=== PATIENT | male | born 1960 | race Caucasian/White ===

== ENCOUNTER 2025-01-21 10:19 | Inpatient (IN) ==
[2025-01-21] MEDS: SODIUM CHLORIDE 0.9% 1,000 ML IV SCH ×2 (10:49→18:25)
--- NOTE | 2025-01-21 10:53 | XRay Report ---
XR chest 1V portable CLINICAL HISTORY: syncope, sob COMPARISON STUDY: None FINDINGS: Heart size and pulmonary vasculature are normal. No effusion, consolidation, or pneumothora x. There are a few lateral nondisplaced left mid rib fractures which are likely chronic. IMPRESSION: Likely chronic left mid rib fractures. No acute findings seen. ACT 112: Negative or not required by law. Electronically signed by: Darryl Taylor M.D. 01/21/2025 10:52 AM
[2025-01-21 10:57] LABS: Basophils # (auto) 0.02 K/uL (0.00-0.20); Basophils % (auto) 0.2 %; Eosinophils # (auto) 0.01 K/uL (0.00-0.50); Eosinophils % (auto) 0.1 %; Hematocrit (blood only) 42.5 % (42.0-52.0); Hemoglobin 14.2 g/dl (14.0-18.0); Immature Granulocytes # (auto) 0.05 K/uL (0.01-0.20); Immature Granulocytes % (auto) 0.4 %; Lymphocytes # (auto) 1.86 K/uL (1.20-3.40); Lymphocytes % (auto) 15.4 %; Mean Corpuscular Hemoglobin 28.3 pg (25.0-34.0); Mean Corpuscular Hgb Conc 33.4 g/dL (32.0-36.0); Mean Corpuscular Volume 84.8 fL (80.0-100.0); Mean Platelet Volume 10.9 fL (9.4-12.4); Monocytes % (auto) 11.6 %; Neutrophils # (auto) 8.76 K/uL (1.40-6.50); Neutrophils % (auto) 72.3 %; Platelet Count 194 K/uL (130-400); RDW Coefficient of Variation 12.9 % (11.5-14.5); RDW Standard Deviation 39.3 fL (36.4-46.3); Red Blood Count 5.01 M/uL (4.70-6.10)
[2025-01-21 11:10] LABS: Albumin Globulin Ratio 1.5 (0.9-2); Albumin Level 4.2 gm/dl (3.4-5.0); BUN Creatinine Ratio 16.1 (10-20); Bilirubin,Total 0.8 mg/dl (0.2-1.0); Calcium 9.2 mg/dl (8.6-10.3); Globulin 2.8 gm/dl (2.5-4.0); Magnesium 1.8 mg/dl (1.7-2.4); Potassium 3.9 mmol/L (3.5-5.1)
[2025-01-21 11:14] LABS: Troponin I High Sensitivity 7.1 pg/ml (0-20)
[2025-01-21 11:24] LABS: Thyroid Stimulating Hormone 0.616 uIu/ml (0.300-4.500)
[2025-01-21 11:48] LABS: Adenovirus PCR Not Detected (NotDetected); Bordetella parapertussis PCR Not Detected (NotDetected); Bordetella pertussis PCR Not Detected (NotDetected); Chlamydia pneumoniae PCR Not Detected (NotDetected); Coronavirus 229E PCR Not Detected (NotDetected); Coronavirus CoV-2 (COVID19)PCR Not Detected (NotDetected); Coronavirus HKU1 PCR Not Detected (NotDetected); Coronavirus NL63 PCR Not Detected (NotDetected); Coronavirus OC43PCR Not Detected (NotDetected); Human Metapneumovirus PCR Not Detected (NotDetected); Influenza A (H1 2009) PCR DETECTED (NotDetected); Influenza B PCR Not Detected (NotDetected); Mycoplasma pneumoniae PCR Not Detected (NotDetected); Parainfluenza Virus 1 PCR Not Detected (NotDetected); Parainfluenza Virus 2 PCR Not Detected (NotDetected); Parainfluenza Virus 3 PCR Not Detected (NotDetected); Parainfluenza Virus 4 PCR Not Detected (NotDetected); Respiratory Syncytial VirusPCR Not Detected (NotDetected); Rhinovirus/Enterovirus PCR Not Detected (NotDetected)
[2025-01-21] MEDS: ACETAMINOPHEN 1,000 MG/100 ML VIAL IV STA (13:31)
--- NOTE | 2025-01-21 14:24 | Emergency Department Note ---
Impression & Plan Syncope, Influenza, Hypoxia ED Provider Note ED Provider Note NAME: MOIZ BOO AGE:64 SEX: Male : 1960 ARRIVES VIA: Private vehicle INFORMANT: Patient ED PROVIDER(s): Salma Winslow DO CHIEF COMPLAINT: Syncope HPI: This is a 64-year-old male who is present in the emergency department with his who was a patient when he experienced a syncopal event at bedside. Patient was unconscious for approximately 30 seconds after a fit of coughing and was taken into an adjacent room for further evaluation. Upon my evaluation patient was awake and talking, stated he had had a "bad cold" recently as did his . He states he has been coughing, had decreased appetite, and subjective fevers and chills. He denies any history of asthma or COPD, no prior tobacco abuse. He states he does have diabetes, denies any history of heart or kidney problems. Denies any other change in medications or diet. PAST MEDICAL HISTORY:See Below PAST SURGICAL HISTORY:See Below FAMILY HISTORY:See Below SOCIAL HISTORY:See Below HOME MEDICATIONS:See Below ALLERGIES:See Below VITALS:See Below PHYSICAL EXAMINATION: GENERAL: alert, unwell appearing, well nourished, no distress, non-toxic EYE EXAM: normal conjunctiva, PERRL and EOM's grossly intact OROPHARYNX: no exudate, no erythema, lips, buccal mucosa, and tongue normal and mucous membranes are moist NECK: supple, no nuchal rigidity, no adenopathy, non-tender LUNGS: Coarse bilaterally to auscultation. Normal chest wall mechanics, no w/r/r HEART: no murmurs, S1 normal and S2 normal ABDOMEN: abdomen soft, non-tender, normo-active bowel sounds, no masses, no rebound or guarding. BACK: Back is symmetrical on inspection and there is no deformity, no midline tenderness, no CVA tenderness. SKIN: no rashes, petechiae, orbruising UPPER EXTREMITIES: upper extremities are grossly normal. FROM, nml pulses b/l. LOWER EXTREMITIES: No pitting edema. FROM, nml pulses b/l. NEURO EXAM: Normal sensorium, cranial nerves II-XII grossly intact, normal speech, no facial droop,nogross weakness of arms, no gross weakness of legs. Gross sensation intact. No ataxia. Vital Signs: reviewed and remarkable Differential Diagnosis: vasovagal event, infection, hypoglycemia, electrolyte abnormalities, toxidrome, substance abuse, dysrhythmia, ACS, CVA, ICH, as well as others were entertained. MEDICAL DECISION MAKING: This is a 64 yo male who presents to the ER following a syncopal event while here as a visitor with his . He was unresponsive for 30 seconds and placed in a bed urgently. He was afebrile and VS stable. Once he regained consciousness he had a normal and nonfocal neuro exam and reported having flu like symptoms for a few days as did his . Labs drawn and sent, IV established, EKG and CXR performed and interpreted at bedside, and patient placed on telemetry. He was sent for CT head additionally. He was started on gentle IVF hydration. He was maintained on oxygen via nasal canula as he was noted to be hypoxic following the syncopal event. After several hours of hydration and monitoring, as well as a repeat troponin that was still negative, patient could still not be weaned off of oxygen and with any exertion, his oxygen dropped further. Case discussed with the hospitalist team for additional evaluation and mgmt. Consultation(s): 1654: Discussed with Dr. Avina, [facility] hospitalist team, for additional evaluation and management. ER Treatment Provided: See below Diagnostics Interpreted By Me: -ECG: Normal sinus at 81, normal axis, normal intervals, no acute ST/T wave changes -Cardiac Monitoring: An order was placed for continuous cardiac monitoring. The monitor shows a rate of 80 with normal sinus rhythm. -Laboratory studies: As stated above and show below. -Imaging studies: X-ray Chest: A single view study of the chest was reviewed and was negative for cardiomegaly, focal infiltrate, effusion, pulmonary edema, or wide mediastinum. Triage Nursing Note Reviewed Prior/Outside Records Reviewed Past Med/Surg History Problem List (Updated 01/21/25 @ 17:50 by Background Daemon) Diabetes mellitus type 2, insulin dependent Post-tussive syncope Acute hypoxic respiratory failure Sepsis Influenza A Hypoxia (Acute) Influenza (Acute) Syncope (Acute) Social History Smoking Status: Never smoker Hx Alcohol Use: Yes Hx Substance Use: No Preferred Language: Chinese Communication Ability: Effective Reconciliation Accountant Required: No Beliefs That Will Affect Care: None Current Living Situation: Spouse Other Information That Helps Us Care for You: No Feels Safe at Home: Yes Safety Concerns: Feels Safe At This Time Assistive Devices: None Home Meds Home Medications Medication Instructions Recorded Confirmed dulaglutide 1.5 mg/0.5 mL 1.5 mg subcut WK 01/21/25 01/21/25 subcutaneous pen injector (Trulicity) insulin glargine 100 unit/mL (3 50 unit subcut DAILY 01/21/25 01/21/25 mL) subcutaneous pen (Lantus Solostar U-100 Insulin) insulin lispro 100 unit/mL 1 sliding scale dose subcut UD 01/21/25 01/21/25 subcutaneous pen (Admelog SoloStar U-) Results & Data (ED) Vital Signs Vital Signs - 24 hr 01/21/25 10:28 01/21/25 10:30 01/21/25 10:35 Temperature 36.3 C L Temperature Source Axillary Pulse Rate 90 89 81 Pulse Rate [Apical] Pulse Rate from SpO2 Sensor 88 Pulse Rhythm [Apical] Pulse Strength [Apical] Respiratory Rate 16 28 H Respiratory Effort / Characteristics Non-Labored Spontaneous Respiratory Depth Normal Respiratory Pattern Blood Pressure 208/98 H 153/80 H Blood Pressure [Right Arm] Blood Pressure Mean 134 104 Blood Pressure Mean [Right Arm] Blood Pressure Position [Right Arm] Pulse Oximetry 89 L 89 L Oxygen Delivery Method Room Air Room Air Oxygen Flow Rate Sepsis Recent Fever Within 48 Hours No Sepsis New/Unexplained Change in Mental Status N/A Sepsis Action Taken by Nursing No Action Required 01/21/25 10:57 01/21/25 11:00 01/21/25 11:00 Temperature Temperature Source Pulse Rate 91 H 91 H Pulse Rate [Apical] Pulse Rate from SpO2 Sensor 91 H 90 Pulse Rhythm [Apical] Pulse Strength [Apical] Respiratory Rate 26 H 25 H Respiratory Effort / Characteristics Respiratory Depth Respiratory Pattern Blood Pressure 137/74 131/67 Blood Pressure [Right Arm] Blood Pressure Mean 95 88 Blood Pressure Mean [Right Arm] Blood Pressure Position [Right Arm] Pulse Oximetry 95 95 93 Oxygen Delivery Method Nasal Cannula Nasal Cannula Nasal Cannula Oxygen Flow Rate 2 2 2 Sepsis Recent Fever Within 48 Hours Sepsis New/Unexplained Change in Mental Status Sepsis Action Taken by Nursing 01/21/25 11:15 01/21/25 11:30 01/21/25 11:45 Temperature Temperature Source Pulse Rate 91 H 76 79 Pulse Rate [Apical] Pulse Rate from SpO2 Sensor 79 78 Pulse Rhythm [Apical] Pulse Strength [Apical] Respiratory Rate 21 22 25 H Respiratory Effort / Characteristics Respiratory Depth Respiratory Pattern Blood Pressure 144/71 H 132/68 131/61 Blood Pressure [Right Arm] Blood Pressure Mean 95 89 84 Blood Pressure Mean [Right Arm] Blood Pressure Position [Right Arm] Pulse Oximetry 95 95 97 Oxygen Delivery Method Nasal Cannula Nasal Cannula Nasal Cannula Oxygen Flow Rate 2 2 2 Sepsis Recent Fever Within 48 Hours Sepsis New/Unexplained Change in Mental Status Sepsis Action Taken by Nursing 01/21/25 12:03 01/21/25 12:37 01/21/25 12:37 Temperature 37.7 C H Temperature Source Oral Pulse Rate 89 Pulse Rate [Apical] Pulse Rate from SpO2 Sensor 85 Pulse Rhythm [Apical] Pulse Strength [Apical] Respiratory Rate 24 Respiratory Effort / Characteristics Respiratory Depth Respiratory Pattern Blood Pressure 144/69 H 122/68 Blood Pressure [Right Arm] Blood Pressure Mean 94 97 Blood Pressure Mean [Right Arm] Blood Pressure Position [Right Arm] Pulse Oximetry 96 Oxygen Delivery Method Nasal Cannula Oxygen Flow Rate 2 Sepsis Recent Fever Within 48 Hours Sepsis New/Unexplained Change in Mental Status Sepsis Action Taken by Nursing 01/21/25 12:48 01/21/25 13:30 01/21/25 13:57 Temperature Temperature Source Pulse Rate 93 H 117 H 105 H Pulse Rate [Apical] Pulse Rate from SpO2 Sensor 94 H 118 H 106 H Pulse Rhythm [Apical] Pulse Strength [Apical] Respiratory Rate 24 30 H 27 H Respiratory Effort / Characteristics Respiratory Depth Respiratory Pattern Blood Pressure 177/108 H 152/78 H Blood Pressure [Right Arm] Blood Pressure Mean 131 102 Blood Pressure Mean [Right Arm] Blood Pressure Position [Right Arm] Pulse Oximetry 96 95 92 Oxygen Delivery Method Nasal Cannula Nasal Cannula Oxygen Flow Rate 2 2 Sepsis Recent Fever Within 48 Hours Sepsis New/Unexplained Change in Mental Status Sepsis Action Taken by Nursing 01/21/25 14:06 01/21/25 15:03 01/21/25 15:31 Temperature Temperature Source Pulse Rate 110 H 108 H Pulse Rate [Apical] 105 H Pulse Rate from SpO2 Sensor 111 H 108 H Pulse Rhythm [Apical] Regular Pulse Strength [Apical] Normal Respiratory Rate 27 H 20 Respiratory Effort / Characteristics Non-Labored Spontaneous Respiratory Depth Normal Respiratory Pattern Regular Blood Pressure 152/78 H 113/68 Blood Pressure [Right Arm] 127/60 Blood Pressure Mean 102 83 Blood Pressure Mean [Right Arm] 82 Blood Pressure Position [Right Arm] Lying Pulse Oximetry 93 96 93 Oxygen Delivery Method Room Air Room Air Oxygen Flow Rate Sepsis Recent Fever Within 48 Hours Sepsis New/Unexplained Change in Mental Status Sepsis Action Taken by Nursing 01/21/25 16:00 01/21/25 16:41 Temperature Temperature Source Pulse Rate 95 H Pulse Rate [Apical] Pulse Rate from SpO2 Sensor Pulse Rhythm [Apical] Pulse Strength [Apical] Respiratory Rate 23 Respiratory Effort / Characteristics Respiratory Depth Respiratory Pattern Blood Pressure 105/51 L Blood Pressure [Right Arm] Blood Pressure Mean 64 Blood Pressure Mean [Right Arm] Blood Pressure Position [Right Arm] Pulse Oximetry 90 89 L Oxygen Delivery Method Room Air Oxygen Flow Rate Sepsis Recent Fever Within 48 Hours Sepsis New/Unexplained Change in Mental Status Sepsis Action Taken by Nursing Laboratory Data 01/21/25 10:23 01/22/25 06:52 Lab Results 01/21/25 01/21/25 Range/Units 10:23 15:32 WBC 12.10 H (4.8-10.8) K/ul RBC 5.01 (4.70-6.10) M/uL Hgb 14.2 (14.0-18.0) g/dl Hct 42.5 (42.0-52.0) % MCV 84.8 (80.0-100.0) fL MCH 28.3 (25.0-34.0) pg MCHC 33.4 (32.0-36.0) g/dL RDW Std Deviation 39.3 (36.4-46.3) fL RDW Coeff of Mary 12.9 (11.5-14.5) % Plt Count 194 (130-400) K/uL MPV 10.9 (9.4-12.4) fL Immature Gran % (Auto) 0.4 % Neut % (Auto) 72.3 % Lymph % (Auto) 15.4 % [place] % (Auto) 11.6 % Eos % (Auto) 0.1 % Baso % (Auto) 0.2 % Neut # (Auto) 8.76 H (1.40-6.50) K/uL Lymph # (Auto) 1.86 (1.20-3.40) K/uL [place] # (Auto) 1.40 H (0.11-0.59) K/uL Eos # (Auto) 0.01 (0.00-0.50) K/uL Baso # (Auto) 0.02 (0.00-0.20) K/uL Immature Gran # (Auto) 0.05 (0.01-0.20) K/uL PT 11.0 (9.0-12.0) Seconds INR 1.0 (0.9-1.1) Sodium 134 L (136-145) mmol/L Potassium 3.9 (3.5-5.1) mmol/L Chloride 100 (98-107) mmol/L Carbon Dioxide 25 (21-32) mmol/L Anion Gap 9 (3-11) BUN 15 (6-23) mg/dl Creatinine 0.93 (0.6-1.4) mg/dl Est Cr Clr Drug Dosing 94.0 ml/min eGFR 91.12 BUN/Creatinine Ratio 16.1 (10-20) Glucose 125 H (70-99(Fasting)) mg/dl Calcium 9.2 (8.6-10.3) mg/dl Magnesium 1.8 (1.7-2.4) mg/dl Total Bilirubin 0.8 (0.2-1.0) mg/dl AST 17 (13-39) U/L ALT 14 (7-52) U/L Alkaline Phosphatase 109 H (34-104) U/L Troponin I High Sens 7.1 5.8 (0-20) pg/ml B-Natriuretic Peptide 57 (0-100) pg/ml Total Protein 7.0 (6.0-8.3) gm/dl Albumin 4.2 (3.4-5.0) gm/dl Globulin 2.8 (2.5-4.0) gm/dl Albumin/Globulin Ratio 1.5 (0.9-2) Lipase 8 L (11-82) U/L TSH 0.616 (0.300-4.500) uIu/ml Nasal Influ A H1 2009 PCR DETECTED A (NotDetected) Adenovirus (PCR) Not Detected (NotDetected) B. pertussis DNA (PCR) Not Detected (NotDetected) B.parapertussis DNA PCR Not Detected (NotDetected) C. pneumoniae DNA (PCR) Not Detected (NotDetected) Coronavirus OC43 (PCR) Not Detected (NotDetected) Coronavirus HKU1 (PCR) Not Detected (NotDetected) Coronavirus 229E (PCR) Not Detected (NotDetected) SARS-CoV-2 (PCR) Not Detected (NotDetected) Coronavirus NL63 (PCR) Not Detected (NotDetected) Human Metapneumovir PCR Not Detected (NotDetected) Influenza Type B (PCR) Not Detected (NotDetected) M. pneumoniae (PCR) Not Detected (NotDetected) Parainfluenza 1 (PCR) Not Detected (NotDetected) Parainfluenza 2 (PCR) Not Detected (NotDetected) Parainfluenza 3 (PCR) Not Detected (NotDetected) Parainfluenza 4 (PCR) Not Detected (NotDetected) RSV (PCR) Not Detected (NotDetected) Entero/Rhino (PCR) Not Detected (NotDetected) Administered Medications Acetaminophen (Acetaminophen 325 Mg Tab) 650 mg PO Q4H PRN PRN Reason: Pain or Fever Stop: 02/20/25 18:04 Last Admin: 01/22/25 21:54 Dose: 650 mg Documented By: Admin: 01/22/25 15:32 Dose: 650 mg Documented By: Admin: 01/21/25 21:39 Dose: 650 mg Documented By: ARISTEO Benzonatate (Benzonatate 100 Mg Capsule) 200 mg PO TID PRN PRN Reason: Cough Stop: 02/20/25 18:04 Last Admin: 01/22/25 21:53 Dose: 200 mg Documented By: GARRISON Enoxaparin Sodium (Enoxaparin Inj 40 Mg/0.4 Ml Syr) 40 mg SQ QAM [facility] Stop: 02/21/25 08:59 Last Admin: 01/22/25 08:07 Dose: 40 mg Documented By: CECILIA Guaifenesin (Guaifenesin 600 Mg Tabcr) 600 mg PO Q12 [facility] Stop: 02/20/25 20:59 Last Admin: 01/22/25 21:53 Dose: 600 mg Documented By: Admin: 01/22/25 08:07 Dose: 600 mg Documented By: Admin: 01/21/25 21:12 Dose: 600 mg Documented By: ARISTEO Hydrocodone Bit/Homatropine Methylb (Hydrocodone/Homatropine Syrup 5mg/1.5mg 5ml Udp) 5 ml PO Q6H PRN PRN Reason: Cough Stop: 02/04/25 18:04 Last Admin: 01/22/25 21:54 Dose: 5 ml Documented By: GARRISON Insulin Aspart (Insulin Aspart Per Unit Charge) 0 units SC ACHS NASH Stop: 02/20/25 20:59 Last Admin: 01/22/25 21:55 Dose: 1 units Documented By: GARRISON Co-signed By: associate loan officer: 01/22/25 18:07 Dose: 9 units Documented By: CECILIA Co-signed By: JAMAAL Admin: 01/22/25 12:46 Dose: 8 units Documented By: CECILIA Co-signed By: THIAGO Admin: 01/22/25 08:59 Dose: 13 units Documented By: CECILIA Co-signed By: THIAGO Admin: 01/21/25 21:39 Dose: 4 units Documented By: ARISTEO Co-signed By: WARD Insulin Glargine (Lantus Per Unit Charge) 50 units SC DAILY NASH Stop: 02/21/25 08:59 Last Admin: 01/22/25 08:59 Dose: 50 units Documented By: CECILIA Co-signed By: THIAGO Ondansetron HCl (Ondansetron Inj 2 Mg/Ml 2 Ml Vial) 4 mg IV Q6H PRN PRN Reason: Nausea Stop: 02/20/25 18:04 Last Admin: 01/23/25 02:58 Dose: 4 mg Documented By: GARRISON Oseltamivir Phosphate (Oseltamivir Phosphate 75 Mg Cap) 75 mg PO BID NASH Stop: 01/26/25 20:59 Last Admin: 01/22/25 21:53 Dose: 75 mg Documented By: Admin: 01/22/25 08:07 Dose: 75 mg Documented By: Admin: 01/21/25 21:13 Dose: 75 mg Documented By: ARISTEO Discontinued Medications Sodium Chloride (Nss) 1,000 mls @ 125 mls/hr IV .Q8H NASH Stop: 01/22/25 10:44 Last Infusion: 01/21/25 19:30 Dose: Infused Documented By: Admin: 01/21/25 10:49 Dose: 125 mls/hr Documented By: JOHNNIE Acetaminophen (Ofirmev) 1,000 mg in 100 mls @ 400 mls/hr IV NOW STA Stop: 01/21/25 13:40 Last Infusion: 01/21/25 13:55 Dose: Infused Documented By: Admin: 01/21/25 13:31 Dose: 400 mls/hr Documented By: Sodium Chloride (Nss) 1,000 mls @ 80 mls/hr IV .[id number] NASH Stop: 01/22/25 18:04 Last Infusion: 01/22/25 23:49 Dose: Infused Documented By: Admin: 01/22/25 08:06 Dose: 80 mls/hr Documented By: Infusion: 01/22/25 06:55 Dose: Infused Documented By: Admin: 01/21/25 18:25 Dose: 80 mls/hr Documented By: KWESI Ketorolac Tromethamine (Ketorolac Tromethamine 15 Mg/Ml Vial) 10 mg IV NOW ONE Stop: 01/21/25 14:47 Last Admin: 01/21/25 15:05 Dose: 10 mg Documented By: Oseltamivir Phosphate (Oseltamivir Phosphate 75 Mg Cap) 75 mg PO NOW STA Stop: 01/21/25 18:06 Last Admin: 01/21/25 18:22 Dose: 75 mg Documented By: KWESI Imaging Data Radiologist's Impression: Chest X-Ray 01/21/25 10:35 XR chest 1V portable CLINICAL HISTORY: syncope, sob COMPARISON STUDY: None FINDINGS: Heart size and pulmonary vasculature are normal. No effusion, consolidation, or pneumothorax. There are a few lateral nondisplaced left mid rib fractures which are likely chronic. IMPRESSION: Likely chronic left mid rib fractures. No acute findings seen. ACT 112: Negative or not required by law. Electronically signed by: Darryl Taylor M.D. 01/21/2025 10:[address] 01/21/25 13:54 CT head/brain wo con CLINICAL HISTORY: 64 years-old Male with syncope. Acute syncope TECHNIQUE: Multiple axial CT images of the head were obtained without contrast. A dose lowering technique was utilized adhering to the principles of ALARA. CT DOSE: 625.8 mGy.cm COMPARISON: None. FINDINGS: No acute intracranial hemorrhage, midline shift, intracranial mass, hydrocephalus, territorial ischemia or abnormal extra-axial collection. Mildly motion degraded exam. Mild white matter hypodensities may represent chronic microvascular ischemic disease. The calvarium is intact. The paranasal sinuses, mastoid air cells, and middle ear cavities are clear. IMPRESSION: No acute intracranial abnormality. ACT 112: Negative or not required by law. The above report was generated using voice recognition software. It may contain grammatical, syntax or spelling errors. Electronically signed by: Landon Maeyrs M.D. 01/21/2025 2:40 PM Discharge Plan Visit Data Chief Complaint: Syncope Stated Complaint: SYNCOPE ED Provider: Salma Winslow Discharge Problem: Syncope, Influenza, Hypoxia Patient Disposition: Admitted As Inpatient Discharge Instructions Interventions: ED Discharge Assessment Last Done: 01/21/25 18:05
--- NOTE | 2025-01-21 14:42 | CT Scan Report ---
CT head/brain wo con CLINICAL HISTORY: 64 years-old Male with syncope. Acute syncope TECHNIQUE: Multiple axial CT images of the head were obtained without contrast. A dose lowering tech nique was utilized adhering to the principles of ALARA. CT DOSE: 625.8 mGy.cm COMPARISON: None. FINDINGS: No acute intracranial hemorrhage, midline shift, intracranial mass, hydrocephalus, territorial ischem ia or abnormal extra-axial collection. Mildly motion degraded exam. Mild white matter hypodensities m ay represent chronic microvascular ischemic disease. The calvarium is intact. The paranasal sinuses, mastoid air cells, and middle ear cavities are clear . IMPRESSION: No acute intracranial abnormality. ACT 112: Negative or not required by law. The above report was generated using voice recognition software. It may contain grammatical, syntax o r spelling errors. Electronically signed by: Landon Mayers M.D. 01/21/2025 2:40 PM
[2025-01-21] MEDS: KETOROLAC TROMETHAMINE 15 MG/ML VIAL IV ONE (15:05)
--- NOTE | 2025-01-21 17:39 | History & Physical Report ---
Date of Service January 21, 2025 Assessment & Plan (1) Acute hypoxic respiratory failure: (2) Sepsis: (3) Influenza A: (4) Post-tussive syncope: (5) Diabetes mellitus type 2, insulin dependent: Admission and Anticipated Discharge Date Admission Date: Patient 64-year-old gentleman who was in the emergency department tending to his when he had acute syncopal episode. Syncope most likely due to posttussive event. Subsequent patient diagnosed with H. influenzae and noted be hypoxic and febrile. Meeting criteria for sepsis. Patient high risk for further deterioration and requires hospital level care. Admit to the hospital and monitored unit with a episode of syncope Continue to monitor for arrhythmia Treat influenza with Tamiflu Other symptomatic care with antipyretics, antitussives and mucolytics Continue home basal insulin, monitor glucose with short acting insulin sliding scale Oxygen support, titrate as able History of Present Illness Chief Complaint: Passed out in ED Primary Care Provider: Carmen Ponce PA-C Patient is 64-year-old gentleman who was in the emergency department with his who is critically ill. Reports are that he had a significant coughing spell and then passed out for almost 30 seconds. Evaluation in the emergency room was remarkable for testing positive for influenza A. All other testing really was unrevealing. He has been having fever here in the emergency department and was noted to be somewhat hypoxic. He was referred to our service for ongoing care. Time my evaluation patient feeling a little bit better. Does admit to having some flulike symptoms for the last 24 hours. He is also started with some loose stools here in the emergency department which has been a consistent symptoms with influenza this year. He does not really admit to being short of breath despite his mild hypoxia. Does not really recall anything palacio rrounding the events of him passing out. He was extremely concerned about his as well. Has been eating and drinking okay up until today. No swelling in hands arms legs or feet. No issues with urination. No chest pain or palpitations. Home Medications Medication Instructions Recorded Confirmed Type dulaglutide 1.5 mg/0.5 mL 1.5 mg subcut WK 01/21/25 01/21/25 History subcutaneous pen injector (Trulicity) insulin glargine 100 unit/mL (3 50 unit subcut DAILY 01/21/25 01/21/25 History mL) subcutaneous pen (Lantus Solostar U-100 Insulin) insulin lispro 100 unit/mL 1 sliding scale dose subcut UD 01/21/25 01/21/25 History subcutaneous pen (Admelog SoloStar U-) Past Med/Surg History Problem List (Updated 01/21/25 @ 17:37 by John Stuart, DO) Diabetes mellitus type 2, insulin dependent Post-tussive syncope Acute hypoxic respiratory failure Sepsis Influenza A Hypoxia (Acute) Influenza (Acute) Syncope (Acute) Social History Smoking Status: Unknown if ever smoked Beliefs That Will Affect Care: Yazidi Feels Safe at Home: Yes Review of Systems Review of Systems: Pertinent positive and negative review of systems as mentioned in the HPI Physical Exam Physical Exam: Constitutional: Alert, moderately ill in appearance, HEENT: Mucous membranes moist. Sclera clear Neck: Soft, no adenopathy Lungs: Clear to auscultation, decreased, no wheezes rales or rhonchi CV: S1-S2, regular Abdomen: Soft, nontender, nondistended Extremities: No significant edema Musculoskeletal: No significant joint tenderness Neuro: No focal deficits Psych: Cooperative, normal mood Results & Data Results & Data Vital Signs (Past 12 Hours) Vital Signs Temp Pulse Pulse Resp BP BP Pulse Ox 01/21/25 16:41 89 L 01/21/25 15:31 105 H 20 127/60 93 01/21/25 15:03 108 H 113/68 96 01/21/25 14:06 110 H 27 H 152/78 H 93 01/21/25 13:57 105 H 27 H 152/78 H 92 01/21/25 13:30 117 H 30 H 177/108 H 95 01/21/25 12:48 93 H 24 96 01/21/25 12:37 122/68 01/21/25 12:37 37.7 C H 01/21/25 12:03 89 24 144/69 H 96 01/21/25 11:45 79 25 H 131/61 97 01/21/25 11:30 76 22 132/68 95 01/21/25 11:15 91 H 21 144/71 H 95 01/21/25 11:00 91 H 25 H 131/67 93 01/21/25 11:00 95 01/21/25 10:57 91 H 26 H 137/74 95 01/21/25 10:35 81 01/21/25 10:30 89 28 H 153/80 H 89 L 01/21/25 10:28 36.3 C L 90 16 208/98 H 89 L O2 Del Method O2 Flow Rate 01/21/25 16:41 Room Air 01/21/25 15:31 Room Air 01/21/25 15:03 Room Air 01/21/25 14:06 01/21/25 13:57 01/21/25 13:30 Nasal Cannula 2 01/21/25 12:48 Nasal Cannula 2 01/21/25 12:37 01/21/25 12:37 01/21/25 12:03 Nasal Cannula 2 01/21/25 11:45 Nasal Cannula 2 01/21/25 11:30 Nasal Cannula 2 01/21/25 11:15 Nasal Cannula 2 01/21/25 11:00 Nasal Cannula 2 01/21/25 11:00 Nasal Cannula 2 01/21/25 10:57 Nasal Cannula 2 01/21/25 10:35 01/21/25 10:30 Room Air 01/21/25 10:28 Room Air Diagnostic Findings Reviewed imaging, laboratory and diagnostic studies. Pertinent findings as below. WBCs 12.1 Hemoglobin 14.2 Sodium 134 Creatinine 0.93 Glucose 125 BNP 57 Troponin 5.8 TSH 0.61 Respiratory viral panel positive for influenza A Personally reviewed chest x-ray, no consolidative infiltrate Personally reviewed EKG, sinus rhythm no acute ST-T wave changes Head CT unremarkable
[2025-01-21] MEDS ORDERED: CARBOHYDRATES FOR HYPOGLYCEMIA PO PRN (18:05)
[2025-01-21] MEDS ORDERED: GLUCAGON FOR INJ 1 MG VIAL SQ PRN (18:05)
[2025-01-21] MEDS ORDERED: GLUCOSE 40% GEL 15 GM TUBE PO PRN (18:05)
[2025-01-21] MEDS ORDERED: GLUCOSE 10 TAB/TUBE PO PRN (18:05)
[2025-01-21] MEDS ORDERED: POLYETHYLENE (MIRALAX) 17 GM PACK PO PRN (18:05)
[2025-01-21] MEDS ORDERED: IBUPROFEN 200 MG TAB PO PRN (18:05)
[2025-01-21] MEDS ORDERED: ALUMINUM/MAGNESIUM SUSP 30 ML UDC PO PRN (18:05)
[2025-01-21] MEDS ORDERED: DEXTROSE 50% 50 ML SYRINGE IV PRN (18:05)
[2025-01-21] MEDS: OSELTAMIVIR PHOSPHATE 75 MG CAP PO STA (18:22)
[2025-01-21] MEDS: guaiFENesin 600 MG TABCR PO SCH (21:12)
[2025-01-21] MEDS: OSELTAMIVIR PHOSPHATE 75 MG CAP PO SCH (21:13)
[2025-01-21] MEDS: INSULIN ASPART PER UNIT CHARGE SC SCH (21:39)
[2025-01-21] MEDS: ACETAMINOPHEN 325 MG TAB PO PRN (21:39)
--- OUTSIDE RECORDS SUMMARY | 2025-01-22 05:51 | External Medical Summary | Summary of Care ---
Author Name Unknown Organization [facility] Address [address] [place] [address] Phone [phone] Care Team Providers Care Central Office Supervisor Name Role Phone Carmen Ponce PA-C Primary Care Provider + Reason for Visit * Reason Onset Date Comments Medical Equipment 12/27/2024 Encounter Details Date Type Department Care Team ([facility] st Contact Info) Description 12/27/2024 Telephone Pharmacy [address] [phone] Pharmacist2, [facility] [address] [address] Medical Equipment Allergies Active Allergy Reactions Criticality Noted Date Comments Penicillins Edema face/lips/tongue,Hives High 2000 documented as of this encounter (statuses as of 12/27/2024) Medications Vitamin B-12 1000 MCG Oral Tablet Take by mouth 1 Tablet in the morning. 100 Tablet 3 2 Active Rosuvastatin Calcium 10 MG Oral Tablet (Crestor)Indicati ons:Hyperlipidemi a with target LDL less than 100 Take 1 Tablet by mouth every evening. 90 Tablet 3 3 Active Dexcom G7 Farm Equipment Mechanic Apprentice DeviceIndications :Type 2 diabetes mellitus with hemoglobin A1c goal of less than 7.0% ([facility]) Use to test blood sugars daily DXE 11.9 1 Each 3 Active Furosemide 20 MG Oral Tablet (Lasix)Indication s:Bilateral leg edema Take 1 Tablet by mouth in the morning. 30 Tablet 5 3 Active Potassium Chloride ER 10 MEQ Oral Capsule Extended ReleaseIndication s:Bilateral leg edema,Encounter for long-term (current) use of medications TAKE 1 CAPSULE BY MOUTH EVERY MORNING 90 Capsule 1 4 Active Lantus SoloStar 100 UNIT/ML Subcutaneous Solution Pen-injectorIndic ations:Type 2 diabetes mellitus with hemoglobin A1c goal of less than 7.0% (HCC) INJECT 50 units once daily DX E11.9 - titrating until BG is <150 (MDD 60units/day) 45 mL 3 4 Active Insulin Lispro (1 Unit Dial) 100 UNIT/ML Subcutaneous Solution Pen-injector (Admelog SoloStar)Indicati ons:Type 2 diabetes mellitus with hemoglobin A1c goal of less than 7.0% (HCC) Inject 15 units with breakfast and lunch and 16 units with dinner plus CF 1:30 >150 up to maximum of 75 units per day 45 mL 3 5 Active metFORMIN HCl 1000 MG Oral Tablet (Glucophage)Indic ations:Type 2 diabetes mellitus with hemoglobin A1c goal of less than 7.0% (HCC) Take 1 Tablet by mouth 2 times a day with morning and evening meals. 180 Tablet 1 5 Active Trulicity 1.5 MG/0.5ML Subcutaneous Solution Auto-injector (Dulaglutide)Marlene cations:Type 2 diabetes mellitus with hemoglobin A1c goal of less than 7.0% (HCC) Inject 1.5 mg under the skin once a week for 4 doses. 2 mL 5 12/27/19 25 Active Trulicity 3 MG/0.5ML Subcutaneous Solution Auto-injector (Dulaglutide)Marlene cations:Type 2 diabetes mellitus with hemoglobin A1c goal of less than 7.0% (HCC) Inject 3 mg under the skin once a week. Start after completion of 4 weeks of 1.5 mg weekly Do not start before January 01, 2025. 2 mL 3 5 Active Dexcom G7 SensorIndications :Type 2 diabetes mellitus with hemoglobin A1c goal of less than 7.0% (HCC) Use to test blood sugars daily. Replace sensor every 10 days DX E 11.9 9 Each 3 5 Active documented as of this encounter (statuses as of 12/27/2024) Active Problems Problem Noted Date Diagnosed Date Non-compliance 11/29/2024 Thoracic spondylosis 10/20/2023 Lumbar spondylolysis 10/20/2023 S/P lumbar fusion 10/20/2023 Bilateral low back pain with right-sided sciatic a 08/18/2023 B12 deficiency 03/07/2023 BPH with obstruction/lower urinary tract symptom s 08/09/2022 Pneumococcal vaccination declined 08/09/2022 Tetanus, diphtheria, and natalia llular pertussis (Tdap) vaccination declined 08/09/2022 Tremor 12/29/2021 Hypertension goal BP (blood pressure) < 140/90 1 01/04/2021 Hyperlipidemia with target LDL less than 100 Overweight (BMI 25.0-29.9) 10/13/2021 History of colon polyps 10/13/2021 Thyromegaly 10/13/2021 Type 2 diabetes mellitus wit h hemoglobin A1c goal of less than 7.0% 01/11/2020 Esophageal reflux 11/09/2002 documented as of this encounter (statuses as of 12/27/2024) Resolved Problems Problem Noted Date Diagnosed Date Resolved Date Closed fracture of first lum bar vertebra with routine healing 04/26/2023 10/20/2023 Closed nondisplaced fracture of right clavicle with routine healing 04/26/2023 10/20/2023 Compression fracture of thor acic vertebra with routine healing 04/26/2023 10/20/2023 Fusion of spine of thoracolumbar region 04/26/2023 10/20/2023 COVID-19 vaccine dose declined 08/09/2022 08/24/2024 Chronic left-sided low back pain 11/24/2021 04/26/2023 DDD (degenerative disc disease), lumbar 11/24/2021 04/26/2023 Lumbar radiculopathy 11/24/2021 023 Acute left-sided low back pa in with left-sided sciatica 11/04/2021 04/26/2023 Spinal stenosis of lumbar re gion with neurogenic claudication 11/04/2021 04/26/2023 DKA, type 2 11/03/2021 11/24/2021 Sepsis 11/03/2021 11/24/2021 Acute duodenitis 11/03/2021 11/24/2021 DM type 2, not at goal 07/06/201302/05 Headache 04/21/2012 10/13/2021 Overview (02/11/2016): ICD-10 update of inactive term Type 2 diabetes mellitus wit h hemoglobin A1c goal of 7.0%-8.0% 05/21/2011 09/15/2018 Overview (03/18/2016): ICD-10 update of inactive term ADVANCE DIRECTIVE INFORMATION 03/31/2007 10/13/2021 Overview (03/31/2007): Pt given booklet documented as of this encounter (statuses as of 12/27/2024) Immunizations Name Administration Dates Next Due Covid-19 Ad26, Single Dose (Al/J&J) 02/09/2021 Hepatitis B, 20+ yrs 05/21/2003,12/22/2002,11/21 Seasonal Influenza, PF, 6 M & above, IM , (FluLaval or Fluzone) 11/07/2021(Deferred: Patient Refused) TDAP (age 10 and older)(Boostrix) 04/01/2023 documented as of this encounter Social History Tobacco Use Types Packs/Day Years Used Date Smoking Tobacco: Former Cigarettes 0.5 5 1 - 11/18/2012 Smokeless Tobacco: Former Alcohol Use Standard Drinks/Week Comments Not Currently 0 (1 standard drink = 0.6 oz pur e alcohol) occasionally PHQ-2 Answer Date Recorded PHQ Adult Total Score 0 02/23/2024 Hunger Vital Sign Answer Date Recorded Within the past 12 months, y ou worried that your food would run out before you got the money to buy more. Never true 10/19/20 23 Within the past 12 months, t he food you bought just didn't last and you didn't have money to get more. Never true 10/19/2023 Childcare Answer Date Recorded Do you feel overwhelmed with taking care of a child, family member or friend? No 10/19/2023 Does your family need help f inding childcare? (Household - for ages 0-17 years) Not on file 10/19/2023 Clothing Answer Date Recorded Have you been unable to get clothing when it was really needed? No 10/19/2023 Is your family able to get c lothes or diapers when needed? (Household - for ages 0-17 years) Not on file 10/19/2023 Personal Safety Answer Date Recorded Do you feel unsafe or have concerns for your saf ety? No 10/19/2023 Do you have concerns for you r family's safety? (Household - for ages 0-17 years) Not on file 10/19/2023 Utilities Answer Date Recorded Do you have trouble paying y our heating, water, or electric bill? No 10/19/2023 Is your family able to pay t he heat, water, or electric bill? (Household - for ages 0-17 years) Not on file 10/19/2023 Does your family have access to good internet? (Household - for ages 0-17 years) Not on file 10/19/2023 Employment Status Answer Date Recorded Are you unemployed or without regular income? No 10/19/2023 Does the household have a [employer] [facility] source of income? (Household - for ages 0-17 years) Not on file 10/19/2023 Social Connections Answer Date Recorded How often do you feel lonely or isolated from th ose around you? Never 10/19/2023 Financial Resource Strain Answer Date R ecorded Do you have any trouble payi ng for your medications, or do you think you might in the future? No 10/19/2023 Does your family have troubl e paying for medicine? (Household - for ages 0-17 years) Not on file 10/19/2023 Transportation Needs Answer Date Record ed READ ONLY Do you have troubl e getting a ride to medical visits or work? Never True 10/19/2023 Does your family have a hard time getting a ride to doctors visits? (Household - for ages 0-17 years) Not on file 10/19/2023 Has lack of transportation k ept you from medical appointments, meetings, work, or from getting things needed for daily living? Check all that apply. (Adult - for ages 18 years and over) Not on file 10/19/2023 Do you (or your family) have trouble finding or paying for a ride (transportation)? (Household - for ages 0-17 years) Not on file 10/19/2023 Housing Stability Answer Date Recorded Do you currently live in a s helter or have no steady place to sleep at night? No 10/19/2023 READ ONLY Do you think you a re at risk of becoming homeless? No 10/19/2023 Does your family worry about paying for your home or becoming homeless? (Household - for ages 0-17 years) Not on file 1 12/19/2022 Are you homeless or worried that you might be in the future? (Adult - for ages 18 years and over) Not on file Are you (or your family) giselle eless or worried that you might be in the future? (Household - for ages 0-17 years) Not on file Food Insecurity Answer Date Recorded Do you need food for this week? No 10/19/2023 Are you able to get enough f ood for your family? (Household - for ages 0-17 years) Not on file 10/19/2023 Does your family need food t his week? (Household - for ages 0-17 years) Not on file 10/19/2023 Do you always have enough fo od for your family? (Household - for ages 0-17 years) Not on file 10/19/2023 Sex and Gender Information Value Date Recorded Sex Assigned at Male 04/06/2019 12:09 PM EDT Legal Sex Male 7:01 AM EST Gender Identity Male 04/06/2019 12:09 PM EDT Sexual Orientation Straight 04/06/2019 12 :09 PM EDT documented as of this encounter Functional Status * Do you have serious difficulty walking or climbing stairs? (5 years old or older) Answer Date of Assessment Author No 11/03/2021 9:29 AM EST Mckenna Red MSW documented as of this encounter Miscellaneous Notes * Telephone Encounter - Saqib Yanes RPh - 12/27/2024 3:17 PM EST Duplicate, addressed in separate encounter. Saqib Yanes RPh, PharmD Clinical Pharmacist - Burglar Alarm Installer Medication Therapy Disease Management 12/27/2024, 3:17 PM * Telephone Encounter - Lilliana Schneider CPhT - 12/27/2024 2:52 PM EST Caller's name: Jeffy Aguirre call back number(OFFICE NUMBER FOR ): [phone] Reason for call: Pt states he is currently paying $200/month for his G7 sensors through [employer]. Pt would like to know if there is a cheaper way to obtain the sensors, possibly though a local pharmacy. Pt is requesting a return call to discuss. Thank you, Lilliana Schneider CPhT Emergency Medical Tech II [facility] [address] [place] [address] [address] Salvador Gutierrez [id number] 12/27/2024,2:52 PM documented in this encounter Plan of Treatment Upcoming Encounters Date Type Department Care Team ([facility] Contact Info) Description 03/29/2025 10:20 AM EDT Office Visit Family Practice [address] [phone] Carmen Ponce PA-C [address] [place] [phone] 03/29/2025 11:00 AM EDT Office Visit Pharmacy [address] [phone] Pharmacist2, [facility] [address] [address] Scheduled Procedures Name Priority Associated Diagnoses Date/Ti me COLONOSCOPY FLEXIBLE PROXIMA L DIAGNOSTIC Recall History of colonic polyps Health Maintenance Due Date Last Done Comments Pneumococcal Vaccine: 50+ Years (1 of 2 - PCV) 1978 Cologuard 2004 Fecal Occult Blood Test 2004 Sigmoidoscopy 2004 Zoster Vaccines (1 of 2) 2009 Diabetic Eye Exam 02/09/2024 02/08/2023, , 06/27/2020, Additional history exists COVID-19 Vaccine (2 - season) 2024 02/09/2021 Influenza Vaccine (FLU shot) (#1) 2024 Albumin/Creatinine Ratio 02/22/2025 024, 04/26/2023, 06/30/2022, Additional history exists Depression Screening 02/22/2025 02/23/2024 HbA1c 03/21/2025 09/21/2024, 02/19, 09/22/2023, Additional history exists Diabetic Foot Exam 08/24/2025 08/24/2024, 0 08/18/2023, 07/30/2022, Additional history exists GFR 09/21/2025 09/21/2024, 12/2022, 04/26/2023, Additional history exists Colonoscopy 08/17/2029 08/17/2024, 07/23, 01/12/2022, Additional history exists Colorectal Cancer Screening 08/17/2029 Lipid Panel 09/21/2029 09/21/2024, 1112/2022, 04/26/2023, Additional history exists DTap/Tdap Vaccines (2 - Td or Tdap) 04/01/2033 04/01/2023 Hepatitis B Vaccine Completed 05/21/2003, 12/22/2002, 11/21/2002 AAA Screening Completed 04/05/2023, 03/21, 04/01/2023, Additional history exists RETIRED - COLONOSCOPY-EVERY 2 YRS AGES 18-100 Discontinued 08/17/2024, 08/17/2024, 01/12/2022, Additional history exists HPV (Gardasil) Vaccine Aged Out No lo nger eligible based on patient's age to complete this topic MENINGOCOCCAL (MENACTRA/MENVEO) Aged Out No longer eligible based on patient's age to complete this topic documented as of this encounter Medical Devices Implanted Type Area Microarray Specialist Device Identifier Shelf Expiration Date Model / Serial / Lot Clip Quick 2.8mm 230cm - [id number] Implanted:Qty: 1 on 10/05/2019 by Obdulio White MD at [facility] [employer] HX-202UR.A / / Clip Quick 2.8mm 230cm - [id number] Implanted:Qty: 1 on 10/05/2019 by Obdulio White MD at [facility] [employer] HX-202UR.A / / Clip Quick 2.8mm 230cm - [id number] Implanted:Qty: 1 on 10/05/2019 by Obdulio White MD at [facility] [employer] HX-202UR.A / / Clip Quick 2.8mm 230cm - [id number] Implanted:Qty: 1 on 10/05/2019 by Obdulio White MD at [facility] [employer] HX-202UR.A / / Clip Quick 2.8mm 230cm - [id number] Implanted:Qty: 1 on 10/05/2019 by Obdulio White MD at [facility] [employer] HX-202UR.A / / Clip Quick 2.8mm 230cm - [id number] Implanted:Qty: 1 on 10/05/2019 by Obdulio White MD at [facility] [employer] HX-202UR.A / / Clip Quick 2.8mm 230cm - [id number] Implanted:Qty: 1 on 10/05/2019 by Obdulio White MD at [facility] [employer] HX-202UR.A / / Clip Quick 2.8mm 230cm - [id number] Implanted:Qty: 1 on 10/05/2019 by Obdulio White MD at [facility] [employer] HX-202UR.A / / Clip Quick 2.8mm 230cm - [id number] Implanted:Qty: 1 on 10/05/2019 by Obdulio White MD at [facility] [employer] HX-202UR.A / / Clip Quick 2.8mm 230cm - [id number] Implanted:Qty: 1 on 10/05/2019 by Obdulio White MD at [facility] [employer] HX-202UR.A / / Clip Quick 2.8mm 230cm - [id number] Implanted:Qty: 1 on 10/05/2019 by Obdulio White MD at [facility] [employer] HX-202UR.A / / Clip Quick 2.8mm 230cm - [id number] Implanted:Qty: 1 on 10/05/2019 by Obdulio White MD at [facility] [employer] HX-202UR.A / / Clip Quick 2.8mm 230cm - [id number] Implanted:Qty: 1 on 10/05/2019 by Obdulio White MD at [facility] [employer] HX-202UR.A / / Clip Quick 2.8mm 230cm - [id number] Implanted:Qty: 1 on 10/05/2019 by Obdulio White MD at [facility] [employer] HX-202UR.A / / documented as of this encounter Advance Directives * Full Code (Latest Code Status on File) Date Activated Date Inactivated Comments 11/03/2021 2:45 AM 11/07/2021 6:28 PM This order reflects the patients wishes and were consensually agreed upon. Question Answer Comments Discussion of Advance Directives occurred with: Not Discussed Does the patient have a Living Will? No Does the patient have Health Care Power of Attor chepe? No Care Teams Central Office Supervisor Relationship Specialty Start Date End Date Carmen Ponce PA-C [address] [place], [place] [address]S[place] chisholm [phone] PCP - General Physician Shingle Trimmer 10/13/21 documented as of this encounter
--- OUTSIDE RECORDS SUMMARY | 2025-01-22 05:51 | External Medical Summary | Summary of Care ---
Author Name Unknown Organization [facility] Address [address] [place] [address] Phone [phone] Care Team Providers Care Asphalt Tamper Name Role Phone Carmen Ponce PA-C Primary Care Provider + Reason for Visit * Reason Onset Date Comments Advice 12/27/2024 Encounter Details Date Type Department Care Team ([facility] st Contact Info) Description 12/27/2024 Telephone Family [address] [phone] Carmen Ponce PA-C [address] [place] [address] Advice Allergies Active Allergy Reactions Criticality Noted Date Comments Penicillins Edema face/lips/tongue,Hives High 2000 documented as of this encounter (statuses as of 12/27/2024) Medications Vitamin B-12 1000 MCG Oral Tablet Take by mouth 1 Tablet in the morning. 100 Tablet 3 2 Active Rosuvastatin Calcium 10 MG Oral Tablet (Crestor)Indicat ions:Hyperlipide fabiola with target LDL less than 100 Take 1 Tablet by mouth every evening. 90 Tablet 3 3 Active Dexcom G7 Atm Manager DeviceIndication s:Type 2 diabetes mellitus with hemoglobin A1c goal of less than 7.0% ([facility]) Use to test blood sugars daily DXE 11.9 1 Each 3 Active Furosemide 20 MG Oral Tablet (Lasix)Indicatio ns:Bilateral leg edema Take 1 Tablet by mouth in the morning. 30 Tablet 5 3 Active Potassium Chloride ER 10 MEQ Oral Capsule Extended ReleaseIndicatio ns:Bilateral leg edema,Encounter for long-term (current) use of medications TAKE 1 CAPSULE BY MOUTH EVERY MORNING 90 Capsule 1 4 Active Lantus SoloStar 100 UNIT/ML Subcutaneous Solution Pen-injectorIndi cations:Type 2 diabetes mellitus with hemoglobin A1c goal of less than 7.0% (HCC) INJECT 50 units once daily DX E11.9 - titrating until BG is <150 (MDD 60units/day) 45 mL 3 4 Active Insulin Lispro (1 Unit Dial) 100 UNIT/ML Subcutaneous Solution Pen-injector (Admelog SoloStar)Indicat ions:Type 2 diabetes mellitus with hemoglobin A1c goal of less than 7.0% (HCC) Inject 15 units with breakfast and lunch and 16 units with dinner plus CF 1:30 >150 up to maximum of 75 units per day 45 mL 3 5 Active metFORMIN HCl 1000 MG Oral Tablet (Glucophage)Marlene cations:Type 2 diabetes mellitus with hemoglobin A1c goal of less than 7.0% (HCC) Take 1 Tablet by mouth 2 times a day with morning and evening meals. 180 Tablet 1 5 Active Trulicity 1.5 MG/0.5ML Subcutaneous Solution Auto-injector (Dulaglutide)Ind ications:Type 2 diabetes mellitus with hemoglobin A1c goal of less than 7.0% (HCC) Inject 1.5 mg under the skin once a week for 4 doses. 2 mL 5 025 Active Trulicity 3 MG/0.5ML Subcutaneous Solution Auto-injector (Dulaglutide)Ind ications:Type 2 diabetes mellitus with hemoglobin A1c goal of less than 7.0% (HCC) Inject 3 mg under the skin once a week. Start after completion of 4 weeks of 1.5 mg weekly Do not start before January 01, 2025. 2 mL 3 5 Active Dexcom G7 SensorIndication s:Type 2 diabetes mellitus with hemoglobin A1c goal of less than 7.0% (HCC) Use to test blood sugars daily. Replace sensor every 10 days DX E 11.9 9 Each 3 4 025 Discontin ued(Refil l) documented as of this encounter (statuses as [...] No 10/19/2023 Does the household have a [facility] source of income? (Household - for ages [...] Author No 11/03/2021 9:29 AM EST Mckenna Red, PHYSICS DEPARTMENT CHAIR documented as of this encounter Miscellaneous Notes * Telephone Encounter - Alicia Mishra CPhT - 12/27/2024 2:40 PM EST Incoming call called to talk to [facility] in [facility]. Transferred caller. Thank you, Alicia Mishra CPhT Automatic Edger II [facility] ([facility]) 12/27/2024,2:41 PM documented in this encounter Plan of Treatment Upcoming Encounters Date Type Department Care Team ([facility] st Contact Info) Description 03/29/2025 10:20 AM EDT Office Visit Family [address] [phone] Carmen Ponce PA-C [address] [place] [address] 03/29/2025 11:00 AM EDT Office Visit Pharmacy [address] [phone] Pharmacist2, [facility] [address] [address] Scheduled Procedures Name Priority Associated Diagnoses Date/Ti [...] Cancer Screening 08/17/2029 Lipid Panel 09/21/2029 09/21/2024, 12/2022, 04/26/2023, Additional history exists DTap/Tdap Vaccines (2 [...] this encounter Medical Devices Implanted Type Area Group Teacher Device Identifier Shelf Expiration Date Model / Serial / Lot Clip Quick 2.8mm 230cm - [id number] Implanted:Qty: 1 on 10/05/2019 by Obdulio White MD at [facility] [employer] HX-202UR.A / / Clip Quick 2.8mm 230cm - [id number] Implanted:Qty: 1 on 10/05/2019 by Obdulio White MD at [facility] [employer] HX-202UR.A / / Clip Quick 2.8mm 230cm - [id number] Implanted:Qty: 1 on 10/05/2019 by Obdulio White MD at [facility] [employer] HX-202UR.A / / Clip Quick 2.8mm 230cm - [id number] Implanted:Qty: 1 on 10/05/2019 by Obdulio White MD at [facility] [employer] HX-202UR.A / / Clip Quick 2.8mm 230cm - [id number] Implanted:Qty: 1 on 10/05/2019 by Obdulio White MD at END[facility]COPY [facility] [employer] HX-202UR.A / / Clip Quick 2.8mm 230cm - [id number] Implanted:Qty: 1 on 10/05/2019 by Obdulio White MD at [facility] [employer] HX-202UR.A / / Clip Quick 2.8mm 230cm - [id number] Implanted:Qty: 1 on 10/05/2019 by Obdulio White MD at [facility] [employer] HX-202UR.A / / Clip Quick 2.8mm 230cm - [id number] Implanted:Qty: 1 on 10/05/2019 by Obdulio White MD at [facility] HX-202UR.A / / Clip Quick 2.8mm 230cm - [id number] Implanted:Qty: 1 on 10/05/2019 by Obdulio White MD at [facility] HX-202UR.A / / Clip Quick 2.8mm 230cm - [id number] Implanted:Qty: 1 on 10/05/2019 by Obdulio White MD at [facility] HX-202UR.A / / Clip Quick 2.8mm 230cm - [id number] Implanted:Qty: 1 on 10/05/2019 by Obdulio White MD at [facility] [employer] HX-202UR.A / / Clip Quick 2.8mm 230cm - [id number] Implanted:Qty: 1 on 10/05/2019 by Obdulio White MD at [facility] [employer] HX-202UR.A / / Clip Quick 2.8mm 230cm - [id number] Implanted:Qty: 1 on 10/05/2019 by Obdulio White MD at [facility] HX-202UR.A / / Clip Quick 2.8mm 230cm - [id number] Implanted:Qty: 1 on 10/05/2019 by Obdulio White MD at [facility] HX-202UR.A / / documented as of this [...] Power of Attor chepe? No Care Teams Asphalt Tamper Relationship Specialty Start Date End Date Carmen Ponce PA-C [address] [place] [address] N[place] Hdez [phone] PCP - General Physician Airway Traffic Controller 10/13/21 documented as of this encounter
--- OUTSIDE RECORDS SUMMARY | 2025-01-22 05:51 | External Medical Summary | Summary of Care ---
Author Name Unknown Organization [facility] Address [address] [place] [address] Phone [phone] Care Team Providers Care Housekeeping Aide Name Role Phone Carmen Ponce PA-C Primary Care Provider + Encounter Details Date Type Department Care Team ([facility] Contact Info) Description 12/27/2024 [address] [phone] Pharmacist2, [facility] [address] [address] Allergies Active Allergy Reactions Criticality Noted Date [...] 90 Tablet 3 3 Active Dexcom G7 Electric Motor Repairing Supervisor DeviceIndication s:Type 2 diabetes mellitus with hemoglobin A1c goal of less than 7.0% ([facility]) Use to test blood sugars daily DXE [...] E 11.9 9 Each 3 5 Active Dexcom G7 SensorIndication s:Type 2 diabetes mellitus with hemoglobin A1c goal of less than 7.0% ([facility]) Use to test blood sugars daily. Replace [...] No 10/19/2023 Does the household have a re lar source of income? (Household - for ages [...] Notes * Telephone Encounter - Saqib Yanes [facility] - 12/27/2024 3:16 PM EST As requested by patient over the phone, sent prescription for Dexcom G7 sensors to [facility] pharmacy today. Advised patient to check pricing for both 90 day prescription as written and also 30 day prescription to see lindsey differences as his friend was only getting 30 day supply through the same insurance. Saqib Yanes [facility], PharmD Clinical Pharmacist - Automatic Tire Tester Medication Therapy Disease Management 12/27/2024, 3:17 PM * Telephone Encounter - Megan Gimenez CPhT - 12/27/2024 2:47 PM EST Caller's name: Jeffy Aguirre call back number(OFFICE NUMBER FOR ): [phone] Reason for call: Medication question: Dexcom G7 Sensors Patient calling in states that his Dexcom G7 sensors are costing him $200+ per month with deductible this year. Patient has a co-worker with same insurance that states his sensors cost him around $50at [employer]. Patient would like to have Dexcom G7 sensors sent to [facility]. Please advise. Thank you, Megan Gimenez CPhT Residential Subcontractor II [facility] ([facility] 12/27/2024,2:47 PM documented in this encounter Plan of Treatment Upcoming Encounters Date Type Department Care Team ([facility] Contact Info) Description 03/29/2025 10:20 AM EDT Office Visit Family [address] [phone] Carmen Ponce PA-C [address] [place] [address] 03/29/2025 11:00 AM EDT Office Visit Pharmacy [address] [phone] Pharmacist2, [facility] [address] [address] Scheduled Procedures Name Priority Associated Diagnoses Date/Ti [...] 07/30/2022, Additional history exists GFR 09/21/2025 09/21/2024, 110 12/2022, 04/26/2023, Additional history exists Colonoscopy 08/17/2029 08/17/2024, 07/23, 01/12/2022, Additional history exists Colorectal Cancer Screening 08/17/2029 Lipid Panel 09/21/2029 09/21/2024, 110 12/2022, 04/26/2023, Additional history exists DTap/Tdap Vaccines [...] this encounter Medical Devices Implanted Type Area Metal Furniture Assembler Device Identifier Shelf Expiration Date Model / Serial / Lot Clip Quick 2.8mm 230cm - [id number] Implanted:Qty: 1 on 10/05/2019 by Obdulio White MD at ENDOSCOPY [facility] [employer] HX-202UR.A / / Clip Quick 2.8mm 230cm - [id number] Implanted:Qty: 1 on 10/05/2019 by Obdulio White MD at [facility]COPY [facility] [employer] HX-202UR.A / / Clip Quick 2.8mm 230cm - [id number] Implanted:Qty: 1 on 10/05/2019 by Obdulio White MD at ENDOSCOPY [facility] [employer] HX-202UR.A / / Clip Quick 2.8mm 230cm - [id number] Implanted:Qty: 1 on 10/05/2019 by Obdulio White MD at ENDOSCOPY [facility] [employer] HX-202UR.A / / Clip Quick 2.8mm 230cm - [id number] Implanted:Qty: 1 on 10/05/2019 by Obdulio White MD at ENDOSCOPY [facility] [employer] HX-202UR.A / / Clip Quick 2.8mm 230cm - [id number] Implanted:Qty: 1 on 10/05/2019 by Obdulio White MD at [facility]COPY [facility] [employer] HX-202UR.A / / Clip Quick 2.8mm 230cm - [id number] Implanted:Qty: 1 on 10/05/2019 by Obdulio White MD at ENDOSCOPY [facility] [employer] HX-202UR.A / / Clip Quick 2.8mm 230cm - [id number] Implanted:Qty: 1 on 10/05/2019 by Obdulio White MD at ENDOSCOPY [facility] [employer] HX-202UR.A / / Clip Quick 2.8mm 230cm - [id number] Implanted:Qty: 1 on 10/05/2019 by Obdulio White MD at ENDOSCOPY [facility] [employer] HX-202UR.A / / Clip Quick 2.8mm 230cm - [id number] Implanted:Qty: 1 on 10/05/2019 by Obdulio White MD at ENDOSCOPY [facility] [employer] HX-202UR.A / / Clip Quick 2.8mm 230cm - [id number] Implanted:Qty: 1 on 10/05/2019 by Obdulio White MD at ENDOSCOPY [facility] [employer] HX-202UR.A / / Clip Quick 2.8mm 230cm - [id number] Implanted:Qty: 1 on 10/05/2019 by Obdulio White MD at ENDOSCOPY [facility] [employer] HX-202UR.A / / Clip Quick 2.8mm 230cm - [id number] Implanted:Qty: 1 on 10/05/2019 by Obdulio White MD at ENDOSCOPY [facility] [employer] HX-202UR.A / / Clip Quick 2.8mm 230cm - [id number] Implanted:Qty: 1 on 10/05/2019 by Obdulio White MD at ENDOSCOPY [facility] [employer] HX-202UR.A / / documented as of this encounter Visit Diagnoses Diagnosis Type 2 diabetes mellitus with hemoglobin A1c goal of less than 7.0% (HCC) documented in this encounter Advance Directives * Full Code [...] Power of Attor chepe? No Care Teams Housekeeping Aide Relationship Specialty Start Date End Date Carmen Ponce PA-C [address] [place], [place] [address]NA[place] chisholm [phone] PCP - General Physician Mender Knit Goods 10/13/21 documented as of this encounter
--- OUTSIDE RECORDS SUMMARY | 2025-01-22 05:51 | External Medical Summary | Summary of Care ---
Author Name Unknown Organization [facility] Address [address] [facility] [place] [address] Phone [phone] Care Team Providers Care Phytopathology Teacher Name Role Phone Carmen Ponce PA-C Primary Care Provider + Encounter Details Date Type Department Care Team ([facility] st Contact Info) Description 12/04/2024 Orders Only PATIENT PORTAL DO NOT DELETE THIS DEPT USED BY NANCY SOARES [id number] Allergies Active Allergy Reactions Criticality Noted Date Comments Penicillins Edema face/lips/tongue,Hives High 2000 documented as of this encounter (statuses as of 12/04/2024) Medications Vitamin B-12 1000 MCG Oral Tablet Take by mouth 1 Tablet in the morning. 100 Tablet 3 2 Active Rosuvastatin Calcium 10 MG Oral Tablet (Crestor)Indicati ons:Hyperlipidemi a with target LDL less than 100 Take 1 Tablet by mouth every evening. 90 Tablet 3 3 Active Dexcom G7 It Programmer DeviceIndications :Type 2 diabetes mellitus with hemoglobin A1c goal of less than 7.0% ([facility]) Use to test blood sugars daily DXE 11.9 1 Each 3 Active Furosemide 20 MG Oral Tablet (Lasix)Indication s:Bilateral leg edema Take 1 Tablet by mouth in the morning. 30 Tablet 5 3 Active NovoLOG FlexPen 100 UNIT/ML Subcutaneous Solution Pen-injector (insulin aspart) Inject 15 units before breakfast and lunch and 16 before dinner + 1 unit for every 30 >150 mg/dL MDD: 80units/day - replacing Humalog, per insurance, call patient when ready 75 Each 3 4 Active metFORMIN HCl 1000 MG Oral Tablet (Glucophage)Indic ations:Type 2 diabetes mellitus with hemoglobin A1c goal of less than 7.0% (HCC) TAKE 1 TABLET BY MOUTH 2 TIMES A DAY WITH MORNING AND EVENING MEALS 180 Tablet 1 4 Active Potassium Chloride ER 10 MEQ Oral [...] (MDD 60units/day) 45 mL 3 4 Active Dexcom G7 SensorIndications :Type 2 diabetes mellitus with hemoglobin A1c goal of less than 7.0% (HCC) Use to test blood sugars daily. Replace sensor every 10 days DX E 11.9 9 Each 3 4 Active Trulicity 1.5 MG/0.5ML Subcutaneous Solution Auto-injector (Dulaglutide)Marlene cations:Type 2 diabetes mellitus with hemoglobin A1c goal of less than 7.0% (HCC) Inject 1.5 mg under the skin once a week. 2 mL 5 5 Active documented as of this encounter (statuses as of 12/04/2024) Active Problems Problem Noted Date Diagnosed Date [...] as of this encounter (statuses as of 12/04/2024) Resolved Problems Problem Noted Date Diagnosed Date [...] as of this encounter (statuses as of 12/04/2024) Immunizations Name Administration Dates Next Due Covid-19 [...] 10/19/2023 Does the household have a re gular source of income? (Household - for ages [...] Red MSW documented as of this encounter Plan of Treatment Upcoming Encounters Date Type Department Care Team ([facility] Contact Info) Description 12/05/2024 9:00 AM EST Office Visit Pharmacy [address] [phone] Pharmacist2, [facility] [address] [address] 03/29/2025 10:20 AM EDT Office Visit Family Practice [address] [phone] Carmen Ponce PA-C [address] [place] [phone] Scheduled Procedures Name Priority Associated Diagnoses Date/Ti [...] Hepatitis B Vaccine Completed 05/21/2003, 12/22/2002, 11/21/2002 RETIRED - COLONOSCOPY-EVERY 2 YRS AGES 18-100 Discontinued 08/17/2024, 08/17/2024, 01/12/2022, Additional history exists HPV (Gardasil) Vaccine Aged Out No lo nger eligible based on patient's age to complete this topic MENINGOCOCCAL (MENACTRA/MENVEO) Aged Out No longer eligible based on patient's age to complete this topic documented as of this encounter Medical Devices Implanted Type Area Purse Framer Device Identifier Shelf Expiration Date Model / Serial / Lot Clip Quick 2.8mm 230cm - [id number] Implanted:Qty: 1 on 10/05/2019 by Obdulio White MD at [facility] [employer] HX-202UR.A / / Clip Quick 2.8mm 230cm - [id number] Implanted:Qty: 1 on 10/05/2019 by Obdulio White MD at ENDOSCOPY [facility] [employer] HX-202UR.A / / Clip Quick 2.8mm 230cm - [id number] Implanted:Qty: 1 on 10/05/2019 by Obdulio White MD at ENDOSCOPY [facility] [employer] HX-202UR.A / / Clip Quick 2.8mm 230cm - [id number] Implanted:Qty: 1 on 10/05/2019 by Obdulio White MD at [facility]COPY [facility] [employer] HX-202UR.A / / Clip Quick 2.8mm 230cm - [id number] Implanted:Qty: 1 on 10/05/2019 by Obdulio White MD at ENDOSCOPY [facility] [employer] HX-202UR.A / / Clip Quick 2.8mm 230cm - [id number] Implanted:Qty: 1 on 10/05/2019 by Obdulio White MD at ENDOSCOPY [facility] [employer] HX-202UR.A / / Clip Quick 2.8mm 230cm - [id number] Implanted:Qty: 1 on 10/05/2019 by Obdulio White MD at ENDOSCOPY [facility] [employer] HX-202UR.A / / Clip Quick 2.8mm 230cm - [id number] Implanted:Qty: 1 on 10/05/2019 by Obdulio White MD at ENDOSCOPY [facility] [employer] HX-202UR.A / / Clip Quick 2.8mm 230cm - [id number] Implanted:Qty: 1 on 10/05/2019 by Obdulio White MD at ENDOSCOPY [facility] [employer] HX-202UR.A / / Clip Quick 2.8mm 230cm - [id number] Implanted:Qty: 1 on 10/05/2019 by Obdulio White MD at [facility]COPY [facility] HX-202UR.A / / Clip Quick 2.8mm 230cm - [id number] Implanted:Qty: 1 on 10/05/2019 by Obdulio White MD at [facility]COPY [facility] [employer] HX-202UR.A / / Clip Quick 2.8mm 230cm - [id number] Implanted:Qty: 1 on 10/05/2019 by Obdulio White MD at ENDOSCOPY [facility] [employer] HX-202UR.A / / Clip Quick 2.8mm 230cm - [id number] Implanted:Qty: 1 on 10/05/2019 by Obdulio White MD at ENDOSCOPY [facility] [employer] HX-202UR.A / / Clip Quick 2.8mm 230cm - [id number] Implanted:Qty: 1 on 10/05/2019 by Obdulio White MD at ENDOSCOPY [facility] [employer] HX-202UR.A / / documented [...] Power of Attor chepe? No Care Teams Phytopathology Teacher Relationship Specialty Start Date End Date Carmen Ponce PA-C [address] [place], [place] [address]NA[place] ch[place]olm [phone] PCP - General Physician Child And Family Therapist 10/13/21 documented as of this encounter
--- OUTSIDE RECORDS SUMMARY | 2025-01-22 05:51 | External Medical Summary | Summary of Care ---
Author Name Unknown Organization [facility] Address [address] [place] [address] Phone [phone] Care Team Providers Care Machine Tool Technician Instructor Name Role Phone Carmen Ponce PA-C Primary Care Provider + Reason for Visit * Reason Onset Date Comments Forms Request 10/04/2024 Encounter Details Date Type Department Care Team ([facility] Contact Info) Description 10/04/[address] [phone] Carmen Ponce PA-C [address] [place] [address] Forms Request (/) Allergies Active Allergy Reactions Criticality Noted Date Comments Penicillins Edema face/lips/tongue,Hives High 2000 documented as of this encounter (statuses as of 10/05/2024) Medications Vitamin B-12 1000 MCG Oral Tablet Take by mouth 1 Tablet in the morning. 100 Tablet 3 2 Active Additional Information Patient not taking.Reported on 08/24/2024 Rosuvastatin Calcium 10 MG Oral Tablet (Crestor)Indicat ions:Hyperlipide fabiola with target LDL less than 100 Take 1 Tablet by mouth every evening. 90 Tablet 3 3 Active dbTwang G7 Seafood Manager DeviceIndication s:Type 2 diabetes mellitus with hemoglobin A1c goal of less than 7.0% ([facility]) Use to test blood sugars daily [...] EVERY MORNING 90 Capsule 1 4 Active Dulaglutide 1.5 MG/0.5ML Subcutaneous Solution Pen-injector (Trulicity) Inject 1.5 mg under the skin once a week. For 4 weeks, then increase to 3mg weekly DX E11.9 2 mL 4 Active Trulicity 3 MG/0.5ML Subcutaneous Solution Pen-injector (Dulaglutide) Inject 3 mg under the skin once a week. After 4 weeks of 1.5mg weekly DX E11.9 6 mL 3 4 Active Lantus SoloStar 100 UNIT/ML Subcutaneous Solution Pen-injectorIndi cations:Type 2 diabetes mellitus with hemoglobin A1c goal of less than 7.0% (HCC) INJECT 50 units once daily DX E11.9 - titrating until BG is <150 (MDD 60units/day) 45 mL 3 4 Active Additional Information Patient not taking.Reported on 08/24/2024 Dexcom G7 SensorIndication s:Type 2 diabetes mellitus with hemoglobin A1c goal of less than 7.0% (HCC) Use to test blood sugars daily. Replace sensor every 10 days DX E 11.9 9 Each 3 4 Active documented as of this encounter (statuses as of 10/05/2024) Active Problems Problem Noted Date Diagnosed Date Thoracic spondylosis 10/20/2023 Lumbar spondylolysis 10/20/2023 S/P [...] as of this encounter (statuses as of 10/05/2024) Resolved Problems Problem Noted Date Diagnosed Date [...] as of this encounter (statuses as of 10/05/2024) Immunizations Name Administration Dates Next Due Covid-19 [...] encounter Miscellaneous Notes * Telephone Encounter - Annie Esparza OSA - 10/05/2024 1:45 PM EST Patient has been notified of the message. Patient has no further questions. * Telephone Encounter - Doris Beebe OSA - 10/05/2024 10:37 AM EST No answer, voicemail full. Unable to let patient know form is ready to be picked up * Telephone Encounter - Carmen Ponce PA-C - 10/04/2024 12:13 PM EST Wellness form complete. documented in this encounter Plan of Treatment Upcoming Encounters Date Type Department Care Team ([facility] st Contact Info) Description 10/23/2024 6:10 PM EST Pharmacy Pharmacy [address] [phone] Pharmacist1, [facility] [address] [address] 11/30/2024 10:40 AM EST Office Visit Family Practice [address] [phone] Carmen Ponce PA-C [address] [place] [address] Health Maintenance Due Date Last Done Comments Pneumococcal Vaccine: Pediatrics (0 to 5 Years) and At-Risk Patients (6 to 64 Years) (1 of 2 - PCV) 1965 Cologuard 2004 Fecal Occult Blood Test 2004 [...] 09/21/2024, 12/2022, 04/26/2023, Additional history exists Colonoscopy 08/17/2026 08/17/2024, 07/23, 01/12/2022, Additional history exists Colorectal Cancer Screening 08/17/2026 Lipid Panel 09/21/2029 09/21/2024, 12/2022, 04/26/2023, Additional [...] this encounter Medical Devices Implanted Type Area Title Assistant Device Identifier Shelf Expiration Date Model / Serial / Lot Clip Quick 2.8mm 230cm - [id number] Implanted:Qty: 1 on 10/05/2019 by Obdulio White MD at ENDOSCOPY [facility] [employer] HX-202UR.A / / Clip Quick 2.8mm 230cm - [id number] Implanted:Qty: 1 on 10/05/2019 by Obdulio White MD at ENDOSCOPY [facility] [employer] HX-202UR.A / / Clip Quick 2.8mm 230cm - [id number] Implanted:Qty: 1 on 10/05/2019 by Obdulio White MD at ENDOSCOPY [facility] [employer] HX-202UR.A / / Clip Quick 2.8mm 230cm - [id number] Implanted:Qty: 1 on 10/05/2019 by Obdulio White MD at ENDOSCOPY [facility] [employer] HX-202UR.A / / Clip Quick 2.8mm 230cm - [id number] Implanted:Qty: 1 on 10/05/2019 by Obdulio White MD at [facility] [employer] HX-202UR.A / / Clip Quick 2.8mm 230cm - [id number] Implanted:Qty: 1 on 10/05/2019 by Obdulio White MD at ENDOSCOPY [facility] [employer] HX-202UR.A / / Clip Quick 2.8mm 230cm - [id number] Implanted:Qty: 1 on 10/05/2019 by Obdulio White MD at END[facility]COPY [facility] [employer] HX-202UR.A / / Clip Quick 2.8mm 230cm - [id number] Implanted:Qty: 1 on 10/05/2019 by Obdulio White MD at [facility] [employer] [facility] HX-202UR.A / / Clip Quick 2.8mm 230cm - [id number] Implanted:Qty: 1 on 10/05/2019 by Obdulio White MD at [facility] [employer] HX-202UR.A / / Clip Quick 2.8mm 230cm - [id number] Implanted:Qty: 1 on 10/05/2019 by Obdulio White MD at [facility] [employer] [facility] HX-202UR.A / / Clip Quick 2.8mm 230cm - [id number] Implanted:Qty: 1 on 10/05/2019 by Obdulio White MD at ENDOSCOPY [facility] [employer] HX-202UR.A / / Clip Quick 2.8mm 230cm - [id number] Implanted:Qty: 1 on 10/05/2019 by Obdulio White MD at [facility] [employer] HX-202UR.A / / Clip Quick 2.8mm 230cm - [id number] Implanted:Qty: 1 on 10/05/2019 by Obdulio White MD at [facility] [employer] [facility] HX-202UR.A / / Clip Quick 2.8mm 230cm - [id number] Implanted:Qty: 1 on 10/05/2019 by Obdulio White MD at [facility] [email or web address] HX-202UR.A / / documented as of [...] Power of Attor chepe? No Care Teams Machine Tool Technician Instructor Relationship Specialty Start Date End Date Carmen Ponce PA-C [address] [place] [phone] PCP - General Physician 3D Designer 10/13/21 documented as of this encounter
--- OUTSIDE RECORDS SUMMARY | 2025-01-22 05:51 | External Medical Summary | Summary of Care ---
Author Name Unknown Organization [facility] Address [address] [place] [address] Phone [phone] Care Team Providers Care Feed House Supervisor Name Role Phone Carmen Ponce PA-C Primary Care Provider + Reason for Visit * Reason Onset Date Comments Medication Problem 12/05/2024 Trulicity 1.5 MG/0.5ML Subcutaneous Solution Auto-injector (Dulaglutide) Encounter Details Date Type Department Care Team ([facility] Contact Info) Description 12/05/2024 Telephone Family [address] [phone] Carmen Ponce PA-C [address] [place] [phone] Medication Problem (Trulicity 1.5 MG/0.5ML... Allergies Active Allergy Reactions Criticality Noted Date Comments Penicillins Edema face/lips/tongue,Hives High 2000 documented as of this encounter (statuses as of 12/05/2024) Medications Vitamin B-12 1000 MCG Oral Tablet Take by mouth 1 Tablet in the morning. 100 Tablet 3 2 Active Rosuvastatin Calcium 10 MG Oral Tablet (Crestor)Indicat ions:Hyperlipide fabiola with target LDL less than 100 Take 1 Tablet by mouth every evening. 90 Tablet 3 3 Active Dexcom G7 Labor Service Representative DeviceIndication s:Type 2 diabetes mellitus with hemoglobin A1c goal of less than 7.0% (HCC) Use to test blood sugars daily DXE [...] 45 mL 3 4 Active Dexcom G7 SensorIndication s:Type 2 diabetes mellitus with hemoglobin A1c goal of less than 7.0% (HCC) Use to test blood sugars daily. Replace sensor every 10 days DX E 11.9 9 Each 3 4 Active Insulin Lispro (1 Unit [...] once a week. 2 mL 5 5 12/05/19 25 Discontin ued(Refil l) documented as of this encounter (statuses as of 12/05/2024) Active Problems Problem Noted Date Diagnosed Date [...] as of this encounter (statuses as of 12/05/2024) Resolved Problems Problem Noted Date Diagnosed Date [...] as of this encounter (statuses as of 12/05/2024) Immunizations Name Administration Dates Next Due Covid-19 [...] No 11/03/2021 9:29 AM EST Mckenna Red, STEPHANIE documented as of this encounter Miscellaneous Notes * Telephone Encounter - Alba Sifuentes RPh - 12/05/2024 12:23 PM EST PA for Trulicity 1.5 mg weekly approved via Cover My Meds today. [place]: [id number]. Alba Sifuentes, PharmD, BCPS Clinical Pharmacist - Capacity Manager [facility] 12/05/24 12:26 PM * Telephone Encounter - Dori Stark CPhT - 12/05/2024 12:10 PM EST [facility] calling regarding medication Trulicity 3 MG/0.5ML Subcutaneous Solution Pen- injector (Dulaglutide) med has been discontinued on med list , Advise Pharmacy doctor sent over Prescription for Trulicity 1.5 MG/0.5ML Subcutaneous Solution Auto-injector (Dulaglutide) Pharmacy stated prescription was never sent over resend prescription Pharmacy stated if Trulicity 1.5 MG/0.5ML Subcutaneous Solution Auto-injector (Dulaglutide) needs PA Pharmacy will call back. Thank you, Dori Stark CPhT [employer] [facility] ([facility] (Formerly [facility]) 12/05/2024,12:12 PM documented in this encounter Plan of Treatment Upcoming Encounters Date Type Department Care Team ([facility] Contact Info) Description 03/29/2025 10:20 AM EDT Office Visit Family [address] [phone] Carmen Ponce PA-C [address] [place] [address] 03/29/2025 11:00 AM EDT Office Visit Pharmacy [address] [phone] Pharmacist2, [facility] [address] [address] Scheduled Procedures Name Priority Associated Diagnoses Date/Ti [...] this encounter Medical Devices Implanted Type Area Varying Exceptionalities Teacher Device Identifier Shelf Expiration Date Model / Serial / Lot Clip Quick 2.8mm 230cm - [id number] Implanted:Qty: 1 on 10/05/2019 by Obdulio White MD at ENDOSCOPY [facility] [employer] HX-202UR.A / / Clip Quick 2.8mm 230cm - [id number] Implanted:Qty: 1 on 10/05/2019 by Obdulio White MD at [facility] HX-202UR.A / / Clip Quick 2.8mm 230cm - [id number] Implanted:Qty: 1 on 10/05/2019 by Obdulio White MD at [facility] HX-202UR.A / / Clip Quick 2.8mm 230cm - [id number] Implanted:Qty: 1 on 10/05/2019 by Obdulio White MD at [facility] HX-202UR.A / / Clip Quick 2.8mm 230cm - [id number] Implanted:Qty: 1 on 10/05/2019 by Obdulio White MD at [facility] HX-202UR.A / / Clip Quick 2.8mm 230cm - [id number] Implanted:Qty: 1 on 10/05/2019 by Obdulio White MD at [facility] HX-202UR.A / / Clip Quick 2.8mm 230cm - [id number] Implanted:Qty: 1 on 10/05/2019 by Obduloi White MD at [facility] HX-202UR.A / / Clip Quick 2.8mm 230cm - [id number] Implanted:Qty: 1 on 10/05/2019 by Obdulio White MD at [facility] HX-202UR.A / / Clip Quick 2.8mm 230cm - [id number] Implanted:Qty: 1 on 10/05/2019 by Obdulio White MD at [facility] HX-202UR.A / / Clip Quick 2.8mm 230cm - [id number] Implanted:Qty: 1 on 10/05/2019 by Obdulio Whiet MD at [facility] HX-202UR.A / / Clip Quick 2.8mm 230cm - [id number] Implanted:Qty: 1 on 10/05/2019 by Obdulio White MD at [facility] HX-202UR.A / / Clip Quick 2.8mm 230cm - [id number] Implanted:Qty: 1 on 10/05/2019 by Obdulio White MD at [facility] HX-202UR.A / / Clip Quick 2.8mm 230cm - [id number] Implanted:Qty: 1 on 10/05/2019 by Obdulio White MD at [facility] [employer] HX-202UR.A / / Clip Quick 2.8mm 230cm - [id number] Implanted:Qty: 1 on 10/05/2019 by Obdulio White MD at [facility] [employer] HX-202UR.A / [...] Power of Attor chepe? No Care Teams Feed House Supervisor Relationship Specialty Start Date End Date Carmen Ponce PA-C [address] [place] [address] NANC[place] Hdez [id number] PCP - General Physician Director Of Logistics 10/13/21 documented as of this encounter
--- OUTSIDE RECORDS SUMMARY | 2025-01-22 05:51 | External Medical Summary | Summary of Care ---
Author Name Unknown Organization [facility] Address [address] [place] [address] Phone [phone] Care Team Providers Care Air Quality Specialist Name Role Phone Carmen Ponce PA-C Primary Care Provider + Encounter Details Date Type Department Care Team (Late st Contact Info) Description 12/03/2024 Orders Only Outcomes Research Department [address], [place] [id number] Sneha Garcia CHRA MyCode Research Other*[id number] Allergies Active Allergy Reactions Criticality Noted Date Comments Penicillins Edema face/lips/tongue,Hives High 2000 documented as of this encounter (statuses as of 12/03/2024) Medications Vitamin B-12 1000 MCG Oral Tablet Take by mouth 1 Tablet in the morning. 100 Tablet 3 2 Active Rosuvastatin Calcium 10 MG Oral Tablet (Crestor)Indicati ons:Hyperlipidemi a with target LDL less than 100 Take 1 Tablet by mouth every evening. 90 Tablet 3 3 Active Dexcom G7 Golf Starter And Ranger DeviceIndications :Type 2 diabetes mellitus with hemoglobin A1c goal of less than 7.0% ([facility]) Use to test blood sugars [...] as of this encounter (statuses as of 12/03/2024) Active Problems Problem Noted Date Diagnosed Date [...] as of this encounter (statuses as of 12/03/2024) Resolved Problems Problem Noted Date Diagnosed Date [...] as of this encounter (statuses as of 12/03/2024) Immunizations Name Administration Dates Next Due Covid-19 [...] Upcoming Encounters Date Type Department Care Team ([facility] st Contact Info) Description 12/05/2024 9:00 AM EST Office Visit Pharmacy [address] [phone] Pharmacist2, [facility] [address] [address] 03/29/2025 10:20 AM EDT Office Visit Family Practice [address] [phone] Carmen Ponce PA-C [address] [place] [phone] Scheduled Orders Name Type Priority Associated Diagnoses Orde r Schedule MYCODE SUBSEQUENT ADULT Lab Routine MyCode Research Other*[id number] Every 6 Months for 2 Occurrences starting 12/03/2024 until 2025 Scheduled Procedures Name Priority Associated Diagnoses Date/Ti [...] 07/30/2022, Additional history exists GFR 09/21/2025 09/21/2024, 11/0 12/2022, 04/26/2023, Additional history exists Colonoscopy 08/17/2029 08/17/2024, 07/23, 01/12/2022, Additional history exists Colorectal Cancer Screening 08/17/2029 Lipid Panel 09/21/2029 09/21/2024, 11/0 12/2022, 04/26/2023, Additional history exists DTap/Tdap Vaccines [...] this encounter Medical Devices Implanted Type Area Order Checker Packer Processer Device Identifier Shelf Expiration Date Model / Serial / Lot Clip Quick 2.8mm 230cm - [id number] Implanted:Qty: 1 on 10/05/2019 by Obdulio White MD at [facility] HX-202UR.A / / Clip Quick 2.8mm 230cm - [id number] Implanted:Qty: 1 on 10/05/2019 by Obdulio White MD at [facility] HX-202UR.A / / Clip Quick 2.8mm 230cm - [id number] Implanted:Qty: 1 on 10/05/2019 by Obdulio White MD at [facility] HX-202UR.A / / Clip Quick 2.8mm 230cm - [id number] Implanted:Qty: 1 on 10/05/2019 by Obdulio White MD at [facility] HX-202UR.A / / Clip Quick 2.8mm 230cm - [id number] Implanted:Qty: 1 on 10/05/2019 by Obduilo White MD at [facility] HX-202UR.A / / Clip Quick 2.8mm 230cm - [id number] Implanted:Qty: 1 on 10/05/2019 by Obdulio White MD at [facility] HX-202UR.A / / Clip Quick 2.8mm 230cm - [id number] Implanted:Qty: 1 on 10/05/2019 by Obdulio White MD at END[facility]COPY [facility] [employer] HX-202UR.A / / Clip Quick 2.8mm 230cm - [id number] Implanted:Qty: 1 on 10/05/2019 by Obdulio White MD at [facility] HX-202UR.A / / Clip Quick 2.8mm 230cm - [id number] Implanted:Qty: 1 on 10/05/2019 by Obdulio White MD at [facility] HX-202UR.A / / Clip Quick 2.8mm 230cm - [id number] Implanted:Qty: 1 on 10/05/2019 by Obdulio White MD at END[facility] [employer] HX-202UR.A / / Clip Quick 2.8mm 230cm - [id number] Implanted:Qty: 1 on 10/05/2019 by Obdulio White MD at [facility] [employer] HX-202UR.A / / Clip Quick 2.8mm 230cm - [id number] Implanted:Qty: 1 on 10/05/2019 by Obdulio White MD at END[facility] [employer] HX-202UR.A / / Clip Quick 2.8mm 230cm - [id number] Implanted:Qty: 1 on 10/05/2019 by Obdulio White MD at END[facility] [employer] HX-202UR.A / / Clip Quick 2.8mm 230cm - [id number] Implanted:Qty: 1 on 10/05/2019 by Obdulio White MD at ENDOSCOPY [facility] [employer] HX-202UR.A / / documented as of this encounter Visit Diagnoses Diagnosis MyCode Research Other*[id number] documented in this encounter Advance Directives * [...] Power of Attor chepe? No Care Teams Air Quality Specialist Relationship Specialty Start Date End Date Carmen Ponce PA-C [address] [place], [place] [address]NANCY chisholm [address] PCP - General Physician Plans Examiner 10/13/21 documented as of this encounter
--- OUTSIDE RECORDS SUMMARY | 2025-01-22 05:51 | External Medical Summary | Summary of Care ---
Author Name Unknown Organization [facility] Address [address] [place] [address] Phone [phone] Care Team Providers Care Marksmanship Instructor Name Role Phone Carmen Ponce PA-C Primary Care Provider + Reason for Referral * Evaluate & Treat - Unlimited Visits (Within 10 days (routine)) - Pending Review Specialty Diagnoses / Procedures Referred By Marisol cheng Referred To Contact Pharmacist / Pharmacy Diagnoses Type 2 diabetes mellitus with hemoglobin A1c goal of less than 7.0% ([facility]) Carmen Ponce PA-C [address] [place] [phone] Phone: tel: fax: Referral ID Status Reason Start Date Expiration Date Visits Requested Visits Authorized [id number] Pending Review Specialty Services Required 11/29/2024 05/28/2025 99 99 Question Answer Referral Priority Within 10 days (routine) Where should this appointment be scheduled? [facility] Referring Provider Role: Primary Care Reason for Referral: DM Target A1c: < 7 Comments Pharmacist Medication Therapy Management: Minimum frequency patient should be seen in person for medication management: as appropriate per clinical condition and patient status By my signature, I understand that my patient Jeffy Roldan will have his medication therapy managed by the [facility] Medication Therapy Disease Management [facility] ([facility]) per established policies, procedures, and protocols. I also certify that this referral may serve as an initiation of service for the management of drug therapy in the above noted patient. [facility] providers will be responsible for scheduling patient visits, obtaining appropriate laboratory studies, and adjusting medication management therapy per patient's need, in addition to those roles spelled out in the clinic policy, procedures, and drug management protocols. I understand that the service provided by the [facility] Clinic is voluntary and have informed patient that they can refuse the service at their discretion. I am aware that the [facility] will provide me with a copy of the patient encounter via my [employer] [facility]. I authorize the [facility] to carry out these activities on my behalf. I consider this program to be a necessary part of the patient's medical care. Carmen Ponce PA-C Reason for Visit * Reason Comments Follow Up Pt can not get his T rulicity. Encounter Details Date Type Department Care Team ([facility] st Contact Info) Description 11/29/2024 10:40 AM EST Office Visit [address] [phone] Carmen Ponce PA-C [address] [place] [phone] Type 2 diabetes mellitus with hemoglobin A1c goal of less than 7.0% ([facility])*; Hyperlipidemia with target LDL less than 100; Hypertension goal BP (blood pressure) < 140/90 Allergies Active Allergy Reactions Criticality Noted Date Comments Penicillins Edema face/lips/tongue,Hives High 2000 documented as of this encounter (statuses as of 12/27/2024) Medications Vitamin B-12 1000 MCG Oral Tablet Take by mouth 1 Tablet in the morning. 100 Tablet 3 07/07/20 22 Active Rosuvastatin Calcium 10 MG Oral Tablet (Crestor)Indica tions:Hyperlipi demia with target LDL less than 100 Take 1 Tablet by mouth every evening. 90 Tablet 3 03/07/20 23 Active Dexcom G7 Simulation Educator DeviceIndicatio ns:Type 2 diabetes mellitus with hemoglobin A1c goal of less than 7.0% (HCC) Use to test blood sugars daily DXE 11.9 1 Each 04/25/20 23 Active Furosemide 20 MG Oral Tablet (Lasix)Indicati ons:Bilateral leg edema Take 1 Tablet by mouth in the morning. 30 Tablet 5 08/18/20 23 Active Potassium Chloride ER 10 MEQ Oral Capsule Extended ReleaseIndicati ons:Bilateral leg edema,Encounter for long-term (current) use of medications TAKE 1 CAPSULE BY MOUTH EVERY MORNING 90 Capsule 1 02/09/20 24 Active Lantus SoloStar 100 UNIT/ML Subcutaneous Solution Pen-injectorInd ications:Type 2 diabetes mellitus with hemoglobin A1c goal of less than 7.0% (HCC) INJECT 50 units once daily DX E11.9 - titrating until BG is <150 (MDD 60units/day) 45 mL 3 06/10/20 24 Active NovoLOG FlexPen 100 UNIT/ML Subcutaneous Solution Pen-injector (insulin aspart) Inject 15 units before breakfast and lunch and 16 before dinner + 1 unit for every 30 >150 mg/dL MDD: 80units/day - replacing Humalog, per insurance, call patient when ready 75 Each 3 12/09/19 24 025 Discontinued(Fo rmulary/Cost) metFORMIN HCl 1000 MG Oral Tablet (Glucophage)Ind ications:Type 2 diabetes mellitus with hemoglobin A1c goal of less than 7.0% (HCC) TAKE 1 TABLET BY MOUTH 2 TIMES A DAY WITH MORNING AND EVENING MEALS 180 Tablet 1 02/09/20 24 025 Discontinued(Re fill) Dulaglutide 1.5 MG/0.5ML Subcutaneous Solution Pen-injector (Trulicity) Inject 1.5 mg under the skin once a week. For 4 weeks, then increase to 3mg weekly DX E11.9 2 mL 06/10/20 24 025 Discontinued Trulicity 3 MG/0.5ML Subcutaneous Solution Pen-injector (Dulaglutide) Inject 3 mg under the skin once a week. After 4 weeks of 1.5mg weekly DX E11.9 6 mL 3 06/10/20 24 025 Discontinued Dexcom G7 SensorIndicatio ns:Type 2 diabetes mellitus with hemoglobin A1c goal of less than 7.0% (HCC) Use to test blood sugars daily. Replace sensor every 10 days DX E 11.9 9 Each 3 08/27/20 24 025 Discontinued(Re fill) Trulicity 1.5 MG/0.5ML Subcutaneous Solution Auto-injector (Dulaglutide)In dications:Type 2 diabetes mellitus with hemoglobin A1c goal of less than 7.0% ([facility]) Inject 1.5 mg under the skin once a week. 2 mL 5 11/29/19 25 025 Discontinued(Re fill) documented as of this encounter (statuses as [...] PM EDT documented as of this encounter Last Filed Vital Signs Vital Sign Reading Time Taken Comments Blood Pressure 128/82 11/29/2024 10:25 AM EST Pulse 68 11/29/2024 10:25 AM EST Temperature 36.7 C (98.1 F) 11/29/2024 10:[address] Respiratory Rate 20 11/29/2024 10:25 AM EST Oxygen Saturation 95% 11/29/2024 10:25 AM EST Inhaled Oxygen Concentration - - Weight 103.9 kg (229 lb) 11/29/2024 10:25 AM EST Height - - Body Mass Index 33.82 08/24/2024 8:34 AM EDT documented in this encounter Functional Status * Do you have serious difficulty walking or climbing stairs? (5 years old or older) Answer Date of Assessment Author No 11/03/2021 9:29 AM EST Mckenna Red MSW documented as of this encounter Progress Notes * Carmen Ponce PA-C - 11/29/2024 11:08 AM EST Images from the original note were not included. History of Present Illness Jeffy Roldan is a 63 year old male that presents for Follow Up (Pt can not get his Trulicity. ) Patient returns for routine follow-up. He has not had Trulicity for about 5 weeks. Patient did not have sensors for several months. Started checking sugars recently. Numbers are running high. Current reading is 115. Average sugar reading is 197 in the last 90 days. Patient is also non- compliant with Metformin. He has not taken medication for at least 3 months. The 10-year ASCVD risk score (Taylor DK, et al., 2019) is: 23.3% Values used to calculate the score: Age: 63 years Sex: Male Is Non- : No Diabetic: Yes Tobacco smoker: No Systolic Blood Pressure: 128 mmHg Is BP treated: Yes HDL Cholesterol: 41 mg/dL Total Cholesterol: 155 mg/dL Physical Exam Vitals: 11/29/24 1025 Temp: 98.1 F (36.7 C) Pulse: 68 Resp: 20 SpO2: 95% BP: 128/82 BP Readings from Last 3 Encounters: 11/29/24 128/82 08/24/24 116/78 08/17/24 107/65 Wt Readings from Last 3 Encounters: 11/29/24 229 lb (103.9 kg) 08/24/24 218 lb (98.9 kg) 08/17/24 210 lb (95.3 kg) Physical Exam Vitals and nursing note reviewed. Constitutional: General: He is not in acute distress. Appearance: Normal appearance. HENT: Head: Normocephalic and atraumatic. Cardiovascular: Rate and Rhythm: Normal rate. Pulmonary: Effort: No respiratory distress. Musculoskeletal: Cervical back: Normal range of motion and neck supple. Neurological: Mental Status: He is alert and oriented to person, place, and time. I have reviewed the following results: Hemoglobin A1C Assessment and Plan 1. Type 2 diabetes mellitus with hemoglobin A1c goal of less than 7.0% ([facility]) (Primary) - restart Trulicity - PHARMACIST MEDS THERAPY MGMT REFERRAL OP - ALBUMIN / CREATININE RATIO, URINE; Future 2. Hyperlipidemia with target LDL less than 100 - continue statin - LIPID PANEL WITH DIRECT LDL IF TG IS HIGH; Future - COMPREHENSIVE METABOLIC PANEL; Future 3. Hypertension goal BP (blood pressure) < 140/90 - at goal, continue the same - COMPREHENSIVE METABOLIC PANEL; Future - CBC; Future Encouraged medication compliance. Wrap-Up Follow Up: Return in about 4 months (around 03/29/2025) for Return with AP, Fasting Labs 2-5 Days Before Next Visit. | For: Return with AP, Fasting Labs 2-5 Days Before Next Visit | Check-out note: Schedule with MTM. Time: I spent a total of 20-29 minutes (exact time 20 mins) on the date of service in preparation, delivery, and documentation of the care provided to Jeffy Roldan excluding any time spent in the performance of separately billed services. The above was discussed and understanding was expressed. Carmen Ponce PA-C [address] [phone] documented in this encounter Nursing Notes * Halina Pickett MED ASSIST - 11/29/2024 10:30 AM EST The patient has been properly identified by confirmation of name and date of . Chief Complaint Patient presents with Follow Up Pt can not get his Trulicity. documented in this encounter Plan of Treatment Upcoming Encounters Date Type Department Care Team ([facility] Contact Info) Description 03/29/2025 10:20 AM EDT Office Visit Family Practice [address] [phone] Carmen Ponce PA-C [address] [place] [phone] 03/29/2025 11:00 AM [place]T [place] [phone] Pharmacist2, [facility] [address] [address] Scheduled Orders Name Type Priority Associated Diagnoses Orde r Schedule LIPID PANEL WITH DIRECT LDL IF TG IS HIGH Lab Routine Hyperlipidemia with target LDL less than 100 Expected: 11/29/2024, Expires: 11/29/2025 COMPREHENSIVE METABOLIC PANEL Lab Routine Hyperlipidemia with target LDL less than 100 Hypertension goal BP (blood pressure) < 140/90 Expected: 11/29/2024 (Approximate), Expires: 11/29/2025 ALBUMIN / CREATININE RATIO, URINE Lab Routine Type 2 diabetes mellitus with hemoglobin A1c goal of less than 7.0% (HCC) Expected: 11/29/2024 (Approximate), Expires: 11/29/2025 CBC Lab Routine Hypertension goal BP (blood pressure) < 140/90 Expected: 11/29/2024 (Approximate), Expires: 11/29/2025 Scheduled Procedures Name Priority Associated Diagnoses Date/Ti me COLONOSCOPY FLEXIBLE PROXIMA L DIAGNOSTIC Recall History of colonic polyps Scheduled Referrals Name Type Priority Associated Diagnoses Orde r Schedule PHARMACIST MEDS THERAPY MGMT REFERRAL OP Referral Within 10 days (routine) Type 2 diabetes mellitus with hemoglobin A1c goal of less than 7.0% (HCC) Ordered: 11/29/2024 Health Maintenance Due Date Last Done Comments Pneumococcal Vaccine: 50+ Years (1 of 2 - PCV) 1978 Cologuard 2004 Fecal Occult Blood Test 2004 Sigmoidoscopy 2004 Zoster Vaccines (1 of 2) 2009 Diabetic Eye Exam 02/09/2024 02/08/2023, , 06/27/2020, Additional history exists COVID-19 Vaccine (2 - 2023- season) 2024 02/09/2021 Influenza Vaccine (FLU shot) [...] this encounter Medical Devices Implanted Type Area Eviscerator Device Identifier Shelf Expiration Date Model / Serial / Lot Clip Quick 2.8mm 230cm - [id number] Implanted:Qty: 1 on 10/05/2019 by Obdulio White MD at [facility] [employer] [facility] HX-202UR.A / / Clip Quick 2.8mm 230cm - [id number] Implanted:Qty: 1 on 10/05/2019 by Obdulio White MD at [facility] [employer] HX-202UR.A / / Clip Quick 2.8mm 230cm - [id number] Implanted:Qty: 1 on 10/05/2019 by Obdulio White MD at [facility] [employer] HX-202UR.A / / Clip Quick 2.8mm 230cm - [id number] Implanted:Qty: 1 on 10/05/2019 by Obdulio White MD at [facility] [employer] HX-202UR.A / / Clip Quick 2.8mm 230cm - [id number] Implanted:Qty: 1 on 10/05/2019 by Obdulio White MD at [facility] [employer] HX-202UR.A / / Clip Quick 2.8mm 230cm - [id number] Implanted:Qty: 1 on 10/05/2019 by Obdulio White MD at [facility] [employer] [facility] HX-202UR.A / / Clip Quick 2.8mm 230cm - [id number] Implanted:Qty: 1 on 10/05/2019 by Obdulio White MD at [facility] [employer] HX-202UR.A / / Clip Quick 2.8mm 230cm - [id number] Implanted:Qty: 1 on 10/05/2019 by Obdulio White MD at [facility] [employer] HX-202UR.A / / Clip Quick 2.8mm 230cm - [id number] Implanted:Qty: 1 on 10/05/2019 by Obdulio White MD at [facility] [employer] HX-202UR.A / / Clip Quick 2.8mm 230cm - [id number] Implanted:Qty: 1 on 10/05/2019 by Obdulio White MD at [facility] [employer] HX-202UR.A / / Clip Quick 2.8mm 230cm - [id number] Implanted:Qty: 1 on 10/05/2019 by Obdulio White MD at [facility] [employer] HX-202UR.A / / Clip Quick 2.8mm 230cm - [id number] Implanted:Qty: 1 on 10/05/2019 by Obdulio White MD at [facility] [employer] HX-202UR.A / / Clip Quick 2.8mm 230cm - [id number] Implanted:Qty: 1 on 10/05/2019 by Obdulio White MD at [facility] [employer] HX-202UR.A / / Clip Quick 2.8mm 230cm - [id number] Implanted:Qty: 1 on 10/05/2019 by Obdulio White MD at [facility] [employer] HX-202UR.A / / documented as of this encounter Visit Diagnoses Diagnosis Type 2 diabetes mellitus with hemoglobin A1c goal of less than 7.0% (HCC)- Primary Hyperlipidemia with target LDL less than 100 Other and unspecified hyperlipidemia Hypertension goal BP (blood pressure) < 140/90 Unspecified essential hypertension documented in this encounter Advance Directives * [...] Power of Attor chepe? No Care Teams Marksmanship Instructor Relationship Specialty Start Date End Date Carmen Ponce PA-C [address] [place] [phone] PCP - General Physician Formula Checker 10/13/21 documented as of this encounter"
--- OUTSIDE RECORDS SUMMARY | 2025-01-22 05:51 | External Medical Summary | Summary of Care ---
Author Name Unknown Organization [facility] Address [address] [place] [address] Phone [phone] Care Team Providers Care Life Skills Teacher Name Role Phone Carmen Ponce PA-C Primary Care Provider + Reason for Visit * Reason Comments Dosage Adjustment In Person (Anticoag Cl inic) Diabetes Follow-Up * Evaluate & Treat - Unlimited Visits (Within 10 days (routine)) - Pending Review Specialty Diagnoses / Procedures Referred By Marisol cheng Referred To Contact Pharmacist / Pharmacy Diagnoses Type 2 diabetes mellitus with hemoglobin A1c goal of less than 7.0% (HCC) Carmen Ponce PA-C [address] [place] [address] Phone: tel: fax: Referral ID Status Reason Start Date Expiration Date Visits Requested Visits Authorized [id number] Pending Review Specialty Services Required 11/29/2024 05/28/2025 99 [phone] Encounter Details Date Type Department Care Team ([facility] Contact Info) Description 12/05/2024 9:00 AM EST Office Visit Pharmacy [address] [address] Pharmacist2, [address] [address] Type 2 diabetes mellitus with hemoglobin A1c goal of less than 7.0% ([facility])* Allergies Active Allergy Reactions Criticality Noted Date [...] 90 Tablet 3 3 Active Dexcom G7 Drug Department Worker DeviceIndication s:Type 2 diabetes mellitus with hemoglobin [...] 01, 2025. 2 mL 3 5 Active NovoLOG FlexPen 100 UNIT/ML Subcutaneous Solution Pen-injector (insulin aspart) Inject 15 units before breakfast and lunch and 16 before dinner + 1 unit for every 30 >150 mg/dL MDD: 80units/day - replacing Humalog, per insurance, call patient when ready 75 Each 3 4 025 Discontin ued(Formu saige/Cost ) metFORMIN HCl 1000 MG Oral Tablet (Glucophage)Marlene cations:Type 2 diabetes mellitus with hemoglobin A1c goal of less than 7.0% (HCC) TAKE 1 TABLET BY MOUTH 2 TIMES A DAY WITH MORNING AND EVENING MEALS 180 Tablet 1 4 025 Discontin ued(Refil l) Trulicity 1.5 MG/0.5ML Subcutaneous Solution Auto-injector (Dulaglutide)Ind ications:Type 2 diabetes mellitus with hemoglobin A1c goal of less than 7.0% (HCC) Inject 1.5 mg under the skin once a week. 2 mL 5 5 025 Discontin ued(Refil l) documented as of [...] 18 years and over) Not on file 3 Are you (or your family) giselle eless [...] as of this encounter Progress Notes * Alba Sifuentes, [facility] - 12/05/2024 9:02 AM EST Images from the original note were not included. Medication Therapy Disease Management [facility] - Diabetes Management Progress Note Jeffy Roldan, identified by name and date of , is a 63 year old male being seen for diabetes management/education. Patient presents for return diabetic visit. DIABETES: Current diabetic medications: RESTART: Trulicity 1.5 mg weekly for 4 weeks, then increase to 3 mg weekly - has not filled yet Lantus 50 units daily Novolog 15 units before breakfast and lunch and 16 before dinner CF: 1 unit for every 30 > 150 mg/dL Metformin 1000 mg twice daily - not taking Dexcom G7 Rosuvastatin 10 mg daily No ACEI/ARB Medication Injection Site: Abdomen and Thigh Lifestyle: Diet: unchanged Glucose Review/SMBG: Readings obtained from patient device Hypoglycemia: Does your blood sugar go below 70 mg/dL? Yes - lows after breakfast or lunch Hyperglycemia symptoms present: none Recent Labs Units 09/21/24 0859 03/07/24 1352 09/22/23 0848 HEMOGLOBIN A1C - [facility] % 8.3* -- 7.5* HEMOGLOBIN A1C POCT - [facility] % -- 7.6* -- Recent Labs Units 09/21/24 0859 09/22/23 0848 04/26/23 0857 ESTIMATED GLOMERULAR FILTRATION RATE - [facility] mL/min >90 >90 >90 CREATININE - [facility] mg/dL 0.7 0.7 0.6 HYPERTENSION: Patient on ACEi/ARB: no, not indicated BP Readings from Last 3 Encounters: 11/29/24 128/82 08/24/24 116/78 08/17/24 107/65 Blood pressure at goal: yes HYPERLIPIDEMIA: Recent Labs Units 09/21/24 0859 09/22/23 0848 04/26/23 0857 LDL CHOLESTEROL (CALCULATED) - [facility] mg/dL 98 61 53 Does patient have clinical ASCVD? No, is patient LDL less than 70mg/dL? No: Discuss increasing statin at next visit HEALTH MAINTENANCE REVIEW: Health Maintenance Due Topic Date Due Pneumococcal Vaccine: 50+ Years (1 of 2 - PCV) Never done Zoster Vaccines (1 of 2) Never done Diabetic Eye Exam 02/09/2024 Influenza Vaccine (FLU shot) (1) Never done COVID-19 Vaccine ( - season) 2024 Albumin/Creatinine Ratio 02/22/2025 ASSESSMENT & PLAN: ICD-10-CM 1. Type 2 diabetes mellitus with hemoglobin A1c goal of less than 7.0% (HCC) E11.9 BG Readings - Blood sugars uncontrolled. Recent A1c 8.3% above goal of <7%. Sensor readings overlast 14 days show worsening glycemic control with TTR 32%, high/very high 68%, GMI 8.8%, and some hypoglycemic episodes. Medications - Reviewed current regimen, patient is not adherent to regimen. Not taking metformin currently. Has not been able to fill Trulicity due to requiring PA. Will restart metformin. Trulicity PA approved on Cover My Meds today (banda [id number]). Restarting Trulicity at 1.5 mg weekly per patientpreference/good tolerability previously.Patient instructed to reach out to clinic after taking lastdose of Trulicity 3 mg so we can make sure he is tolerating well before increasing dose further. Helped patient sign up for Lantus and Admelog coupon card today since out of pocket cost is high. Diet, Exercise, Lifestyle - Notes weight gain ~20 lb since Trulicity interruption . Patient is agreeable to CGM. Dexcom customer service number provided to patient to ask about couponcard. Patient aware to contact clinic if any hypoglycemia before next visit. MEDICATION CHANGES: yes, see below; preferred pharmacy: [facility] Diabetic Medications: RESTART: Trulicity 1.5 mg weekly for 4 weeks, then increase to 3 mg weekly Lantus 50 units daily CHANGE: Admelog (to replace Novolog) 15 units before breakfast and lunch and 16 before dinner CF: 1 unit for every 30 > 150 mg/dL RESTART: Metformin 1000 mg twice daily Dexcom G7 No ACEI/ARB - not indicated Rosuvastatin 10 mg daily - discuss increase at next visit HEALTH MAINTENANCE INTERVENTIONS: Labs: Up to Date Immunizations: Flu, COVID, PCV due - not discussed today Foot Exam: Up to Date Eye Exam: Complete with next PCP visit on 03/29/25 Annual Wellness Visit: N/A FOLLOW UP: Return to clinic in 16 weeks 03/29/2025 I spent a total of 40-54 minutes (exact time 47 mins) on the date of service in preparation, delivery, and documentation of the care provided to Jeffy kathrine Jamar excluding any time spent in the performance of separately billed services. Alba Sifuentes RPh Clinical Pharmacist - Drophammer Operator Medication Therapy Management Clinic 12/05/2024, 9:02 AM documented in this encounter Plan of Treatment Upcoming Encounters Date Type Department Care Team ([facility] Contact Info) Description 03/29/2025 10:20 AM EDT Office Visit [facility] [address] [place] [id number] Carmen Ponce PA-C [address] [place] [address] 03/29/2025 11:00 AM EDT Office Visit Pharmacy [address] [address] Pharmacist2, [facility] [address] [address] Scheduled Procedures Name Priority Associated Diagnoses Date/Ti [...] this encounter Medical Devices Implanted Type Area Global Expansion Sales Director Device Identifier Shelf Expiration Date Model / Serial / Lot Clip Quick 2.8mm 230cm - [id number] Implanted:Qty: 1 on 10/05/2019 by Obdulio White MD at [facility] [employer] HX-202UR.A / / Clip Quick 2.8mm 230cm - [id number] Implanted:Qty: 1 on 10/05/2019 by Obdulio White MD at [facility] [employer] HX-202UR.A / / Clip Quick 2.8mm 230cm - [id number] Implanted:Qty: 1 on 10/05/2019 by Obdulio White MD at [facility] [employer] HX-202UR.A / / Clip Quick 2.8mm 230cm - [id number] Implanted:Qty: 1 on 10/05/2019 by Obdulio White MD at [facility] [employer] HX-202UR.A / / Clip Quick 2.8mm 230cm - [id number] Implanted:Qty: 1 on 10/05/2019 by Obdulio White MD at [facility] [employer] HX-202UR.A / / Clip Quick 2.8mm 230cm - [id number] Implanted:Qty: 1 on 10/05/2019 by Obdulio White MD at [facility] [employer] HX-202UR.A / / Clip Quick 2.8mm 230cm - [id number] Implanted:Qty: 1 on 10/05/2019 by Obdulio White MD at [facility] [employer] HX-202UR.A / / Clip Quick 2.8mm 230cm - [id number] Implanted:Qty: 1 on 10/05/2019 by Obdulio White MD at [facility] [employer] HX-202UR.A / / Clip Quick 2.8mm 230cm - [id number] Implanted:Qty: 1 on 10/05/2019 by Obdulio White MD at [facility] [employer] HX-202UR.A / / Clip Quick 2.8mm 230cm - [id number] Implanted:Qty: 1 on 10/05/2019 by Obdulio White MD at [facility] [employer] HX-202UR.A / / Clip Quick 2.8mm 230cm - [id number] Implanted:Qty: 1 on 10/05/2019 by Obdulio White MD at [facility] [employer] HX-202UR.A / / Clip Quick 2.8mm 230cm - [id number] Implanted:Qty: 1 on 10/05/2019 by Obdulio White MD at [facility] [employer] HX-202UR.A / / Clip Quick 2.8mm 230cm - [id number] Implanted:Qty: 1 on 10/05/2019 by Obdulio White MD at [facility] [employer] HX-202UR.A / / Clip Quick 2.8mm 230cm - [id number] Implanted:Qty: 1 on 10/05/2019 by Obdulio White MD at [facility] [employer] HX-202UR.A / / documented as of this encounter Visit Diagnoses Diagnosis Type 2 diabetes mellitus with hemoglobin A1c goal of less than 7.0% ([facility])- Primary documented in this encounter Advance Directives * [...] Power of Attor chepe? No Care Teams Life Skills Teacher Relationship Specialty Start Date End Date Carmen Ponce PA-C [address] [place] [address] [place] [address] PCP - General Physician Research Neuropsychologist 10/13/21 documented as of this encounter
--- OUTSIDE RECORDS SUMMARY | 2025-01-22 05:51 | External Medical Summary | Summary of Care ---
Author Name Unknown Organization [facility] Address [address] [place] [address] Phone [phone] Care Team Providers Care Exam Proctor Name Role Phone Carmen Ponce PA-C Primary Care Provider + Reason for Visit * Reason Comments Dosage Adjustment Via Phone (anticoag Cl inic) Encounter Details Date Type Department Care Team ([facility] st Contact Info) Description 10/23/2024 6:[address] [facility] Pharmacy Pharmacy [address] [phone] Pharmacist1, [facility] [address] [address] Type 2 diabetes mellitus with hemoglobin A1c goal of less than 8.0% ([facility])* Allergies Active Allergy Reactions Criticality Noted Date Comments Penicillins Edema face/lips/tongue,Hives High 2000 documented as of this encounter (statuses as of 10/23/2024) Medications Vitamin B-12 1000 MCG Oral Tablet Take by mouth 1 Tablet in the morning. 100 Tablet 3 2 Active Additional Information Patient not taking.Reported on 08/24/2024 Rosuvastatin Calcium 10 MG Oral Tablet (Crestor)Indicat ions:Hyperlipide fabiola with target LDL less than 100 Take 1 Tablet by mouth every evening. 90 Tablet 3 3 Active CONSTRVCT G7 Nc Manager DeviceIndication s:Type 2 diabetes mellitus with [...] as of this encounter (statuses as of 10/23/2024) Active Problems Problem Noted Date Diagnosed Date [...] as of this encounter (statuses as of 10/23/2024) Resolved Problems Problem Noted Date Diagnosed Date [...] as of this encounter (statuses as of 10/23/2024) Immunizations Name Administration Dates Next Due Covid-19 [...] No 10/19/2023 Does the household have a [facility] source of income? (Household - for ages [...] as of this encounter Progress Notes * Leelee Lizarraga CPhT - 10/23/2024 8:34 AM EST Patient has not contacted the clinic to schedule/reschedule an appointment for DM management per referral from PCP despite multiple attempts to do so by our team. Patient is discharged from [facility] services at this time. documented in this encounter Plan of Treatment Upcoming Encounters Date Type Department Care Team (Late st Contact Info) Description 11/30/2024 10:40 AM EST Office Visit Family [address] [address] Carmen Ponce PA-C [address] [place] [address] [place] [address] Scheduled Procedures Name Priority Associated Diagnoses Date/Ti [...] this encounter Medical Devices Implanted Type Area Handyperson Device Identifier Shelf Expiration Date Model / Serial / Lot Clip Quick 2.8mm 230cm - [id number] Implanted:Qty: 1 on 10/05/2019 by Obdulio White MD at [facility] [employer] HX-202UR.A / / Clip Quick 2.8mm 230cm - [id number] Implanted:Qty: 1 on 10/05/2019 by Obudlio White MD at [facility] [employer] HX-202UR.A / / Clip Quick 2.8mm 230cm - [id number] Implanted:Qty: 1 on 10/05/2019 by Obdulio White MD at [facility] [employer] HX-202UR.A / / Clip Quick 2.8mm 230cm - [id number] Implanted:Qty: 1 on 10/05/2019 by Obdulio White MD at [facility] [employer] HX-202UR.A / / Clip Quick 2.8mm 230cm - [id number] Implanted:Qty: 1 on 10/05/2019 by Obdulio White MD at [facility] [employer] HX-202UR.A / / Clip Quick 2.8mm 230cm - [id number] Implanted:Qty: 1 on 10/05/2019 by Obdulio White MD at [facility] [employer] HX-202UR.A / / Clip Quick 2.8mm 230cm - [id number] Implanted:Qty: 1 on 10/05/2019 by Obdulio White MD at [facility] [employer] HX-202UR.A / / Clip Quick 2.8mm 230cm - [id number] Implanted:Qty: 1 on 10/05/2019 by Obdulio White MD at [facility] [employer] HX-202UR.A / / Clip Quick 2.8mm 230cm - [id number] Implanted:Qty: 1 on 10/05/2019 by Obdulio White MD at [facility] [employer] HX-202UR.A / / Clip Quick 2.8mm 230cm - [id number] Implanted:Qty: 1 on 10/05/2019 by Obdulio White MD at [facility] [employer] HX-202UR.A / / Clip Quick 2.8mm 230cm - [id number] Implanted:Qty: 1 on 10/05/2019 by Obdulio White MD at [facility] [employer] HX-202UR.A / / Clip Quick 2.8mm 230cm - [id number] Implanted:Qty: 1 on 10/05/2019 by Obdulio White MD at [facility] [employer] HX-202UR.A / / Clip Quick 2.8mm 230cm - [id number] Implanted:Qty: 1 on 10/05/2019 by Obdulio White MD at [facility] [employer] HX-202UR.A / / Clip Quick 2.8mm 230cm - [id number] Implanted:Qty: 1 on 10/05/2019 by Obdulio White MD at [facility] [employer] HX-202UR.A / / documented as of this encounter Visit Diagnoses Diagnosis Type 2 diabetes mellitus with hemoglobin A1c goal of less than 8.0% ([facility])- Primary documented in this encounter Advance Directives [...] Power of Attor chepe? No Care Teams Exam Proctor Relationship Specialty Start Date End Date Carmen Ponce PA-C [address] [place] [address] PCP - General Physician Rat Poisoner 10/13/21 documented as of this encounter
--- OUTSIDE RECORDS SUMMARY | 2025-01-22 05:51 | External Medical Summary | Summary of Care ---
Author Name Unknown Organization [facility] Address [address] [facility] [place] [address] Phone [phone] Care Team Providers Care Bulk Fluids Handler Name Role Phone Carmen Ponce PA-C Primary Care Provider + Encounter Details Date Type Department Care Team (Late st Contact Info) Description 08/13/2024 Telephone Pre Surgery Center, [facility] [address] [place] [address] Obdulio White MD [address] [place] [address] Allergies Active Allergy Reactions Criticality Noted Date Comments Penicillins Edema face/lips/tongue,Hives High 2000 documented as of this encounter (statuses as of 11/12/2024) Medications Vitamin B-12 1000 MCG Oral Tablet Take by mouth 1 Tablet in the morning. 100 Tablet 3 2 Active Additional Information Patient not taking.Reported on 08/24/2024 Rosuvastatin Calcium 10 MG Oral Tablet (Crestor)Indicat ions:Hyperlipide fabiola with target LDL less than 100 Take 1 Tablet by mouth every evening. 90 Tablet 3 3 Active Dexcom G7 Sales Product Manager DeviceIndication s:Type 2 diabetes mellitus with hemoglobin A1c goal of less than 7.0% ([facility]) Use to test blood sugars [...] hemoglobin A1c goal of less than 7.0% ([facility]) TAKE 1 TABLET BY MOUTH 2 TIMES [...] Additional Information Patient not taking.Reported on 08/24/2024 documented as of this encounter (statuses as of 11/12/2024) Active Problems Problem Noted Date Diagnosed Date [...] as of this encounter (statuses as of 11/12/2024) Resolved Problems Problem Noted Date Diagnosed Date [...] as of this encounter (statuses as of 11/12/2024) Immunizations Name Administration Dates Next Due Covid-19 [...] money to buy more. Never true 10/19/20 Within the past 12 months, t he [...] of Assessment Author No 11/03/2021 9:29 AM Mckenna Lopez MSW documented as of this encounter Miscellaneous Notes * Telephone Encounter - Zenobia Back RN - 08/13/2024 9:39 AM EDT Attempted to call for pre anesthesia evaluation. No answer. Voice mail full documented in this encounter Plan of Treatment Upcoming Encounters Date Type Department Care Team ([facility] st Contact Info) Description 11/30/2024 10:40 AM EST Office Visit [address] [address] Carmen Ponce PA-C [address] [place] [phone] Scheduled Procedures Name Priority Associated Diagnoses Date/Ti [...] 07/30/2022, Additional history exists GFR 09/21/2025 09/21/2024, 1112/2022, 04/26/2023, Additional history exists Colonoscopy 08/17/2029 08/17/2024, [...] this encounter Medical Devices Implanted Type Area Preparation Department Supervisor Device Identifier Shelf Expiration Date Model / Serial / Lot Clip Quick 2.8mm 230cm - [id number] Implanted:Qty: 1 on 10/05/2019 by Obdulio White MD at [facility] [employer] HX-202UR.A / / Clip Quick 2.8mm 230cm - [id number] Implanted:Qty: 1 on 10/05/2019 by Obdulio White MD at [facility] [employer] HX-202UR.A / / Clip Quick 2.8mm 230cm - [id number] Implanted:Qty: 1 on 10/05/2019 by Obdulio White MD at [facility] [employer] HX-202UR.A / / Clip Quick 2.8mm 230cm - [id number] Implanted:Qty: 1 on 10/05/2019 by Obdulio White MD at [facility] [employer] HX-202UR.A / / Clip Quick 2.8mm 230cm - [id number] Implanted:Qty: 1 on 10/05/2019 by Obdulio White MD at [facility] [employer] HX-202UR.A / / Clip Quick 2.8mm 230cm - [id number] Implanted:Qty: 1 on 10/05/2019 by Obdulio White MD at [facility] [employer] HX-202UR.A / / Clip Quick 2.8mm 230cm - [id number] Implanted:Qty: 1 on 10/05/2019 by Obdulio White MD at [facility] [employer] H[employer]-202UR.A / / Clip Quick 2.8mm 230cm - [id number] Implanted:Qty: 1 on 10/05/2019 by Obdulio White MD at [facility] [employer] HX-202UR.A / / Clip Quick 2.8mm 230cm - [id number] Implanted:Qty: 1 on 10/05/2019 by Obdulio White MD at [facility] [employer] HX-202UR.A / / Clip Quick 2.8mm 230cm - [id number] Implanted:Qty: 1 on 10/05/2019 by Obdulio White MD at [facility] [employer] HX-202UR.A / / Clip Quick 2.8mm 230cm - [id number] Implanted:Qty: 1 on 10/05/2019 by Obdulio White MD at [facility] [employer] HX-202UR.A / / Clip Quick 2.8mm 230cm - [id number] Implanted:Qty: 1 on 10/05/2019 by Obdulio White MD at [facility] [employer] HX-202UR.A / / Clip Quick 2.8mm 230cm - [id number] Implanted:Qty: 1 on 10/05/2019 by Obdulio White MD at [facility] [employer] HX-202UR.A / / Clip Quick 2.8mm 230cm - [id number] Implanted:Qty: 1 on 10/05/2019 by Obdulio White MD at [facility] [employer] HX-202UR.A / / [...] Power of Attor chepe? No Care Teams Bulk Fluids Handler Relationship Specialty Start Date End Date Carmen Ponce PA-C [address] [place] [address] [place] [address] PCP - General Physician Orthopaedic Physician Assistant 10/13/21 documented as of this encounter
--- OUTSIDE RECORDS SUMMARY | 2025-01-22 05:52 | External Medical Summary | Summary of Care ---
Author Name Unknown Organization [facility] Address [address] [place] [address] Phone [phone] Care Team Providers Care Risk And Insurance Manager Name Role Phone Carmen Ponce PA-C Primary Care Provider + Reason for Visit * Reason Comments Outpatient Testing Encounter Details Date Type Department Care Team ([facility] st Contact Info) Description 09/21/2024 8:50 AM EDT Laboratory Laboratory Patient Service [address] [phone] [facility] [address] [place] [id number] Type 2 diabetes mellitus with hemoglobin A1c goal of less than 7.0% ([facility]); Physical exam, annual; Hypertension goal BP (blood pressure) < 140/90; Hyperlipidemia with target LDL less than 100; Encounter for long-term (current) use of medications; B12 deficiency Allergies Active Allergy Reactions Criticality Noted Date Comments Penicillins Edema face/lips/tongue,Hives High 2000 documented as of this encounter (statuses as of 09/21/2024) Medications Medication Sig Dispensed Refills Start Date End Date Status Vitamin B-12 1000 MCG Oral Tablet Take by mouth 1 Tablet in the morning. 100 Tablet 3 07/07/2022 Active Additional Information Patient not taking.Reported on 08/24/2024 Rosuvastatin Calcium 10 MG Oral Tablet (Crestor)Indication s:Hyperlipidemia with target LDL less than 100 Take 1 Tablet by mouth every evening. 90 Tablet 3 03/07/2023 Active Dexcom G7 Solar [employer] Sales Specialist DeviceIndications:T ype 2 diabetes mellitus with hemoglobin A1c goal of less than 7.0% (HCC) Use to test blood sugars daily DXE 11.9 1 Each 04/25/2023 Active Furosemide 20 MG Oral Tablet (Lasix)Indications: Bilateral leg edema Take 1 Tablet by mouth in the morning. 30 Tablet 5 08/18/2023 Active NovoLOG FlexPen 100 UNIT/ML Subcutaneous Solution Pen-injector (insulin aspart) Inject 15 units before breakfast and lunch and 16 before dinner + 1 unit for every 30 >150 mg/dL MDD: 80units/day - replacing Humalog, per insurance, call patient when ready 75 Each 3 12/09/2023 Active metFORMIN HCl 1000 MG Oral Tablet (Glucophage)Indicat ions:Type 2 diabetes mellitus with hemoglobin A1c goal of less than 7.0% (HCC) TAKE 1 TABLET BY MOUTH 2 TIMES A DAY WITH MORNING AND EVENING MEALS 180 Tablet 1 02/09/2024 Active Potassium Chloride ER 10 MEQ Oral Capsule Extended ReleaseIndications: Bilateral leg edema,Encounter for long-term (current) use of medications TAKE 1 CAPSULE BY MOUTH EVERY MORNING 90 Capsule 1 02/09/2024 Active Dulaglutide 1.5 MG/0.5ML Subcutaneous Solution Pen-injector (Trulicity) Inject 1.5 mg under the skin once a week. For 4 weeks, then increase to 3mg weekly DX E11.9 2 mL 06/10/2024 Active Trulicity 3 MG/0.5ML Subcutaneous Solution Pen-injector (Dulaglutide) Inject 3 mg under the skin once a week. After 4 weeks of 1.5mg weekly DX E11.9 6 mL 3 06/10/2024 Active Lantus SoloStar 100 UNIT/ML Subcutaneous Solution Pen-injectorIndicat ions:Type 2 diabetes mellitus with hemoglobin A1c goal of less than 7.0% (HCC) INJECT 50 units once daily DX E11.9 - titrating until BG is <150 (MDD 60units/day) 45 mL 3 06/10/2024 Active Additional Information Patient not taking.Reported on 08/24/2024 Dexcom G7 SensorIndications:T ype 2 diabetes mellitus with hemoglobin A1c goal of less than 7.0% (HCC) Use to test blood sugars daily. Replace sensor every 10 days DX E 11.9 9 Each 3 08/27/2024 Active documented as of this encounter (statuses as of 09/21/2024) Active Problems Problem Noted Date Diagnosed Date [...] as of this encounter (statuses as of 09/21/2024) Resolved Problems Problem Noted Date Diagnosed Date [...] not at goal 07/06/201302/05 Headache 04/21/2012 10/13/2021 Overview: ICD-10 update of inactive term Type 2 diabetes mellitus wit h hemoglobin A1c goal of 7.0%-8.0% 05/21/2011 09/15/2018 Overview: ICD-10 update of inactive term ADVANCE DIRECTIVE INFORMATION 03/31/2007 10/13/2021 Overview: Pt given booklet documented as of this encounter (statuses as of 09/21/2024) Immunizations Name Administration Dates Next Due Covid-19 [...] No 10/19/2023 Does the household have a [facility] source of income? (Household - for ages [...] Assigned at Male 04/06/2019 12:09 PM EDT Gender Identity Male 04/06/2019 12:09 PM EDT Sexual Orientation Straight 04/06/2019 12 :09 PM EDT Job Start Date Occupation Industry Not on file Not on file Not on file documented as of this encounter Functional Status Functional Status Response Date of Assess ment Do you have serious difficul ty walking or climbing stairs? (5 years old or older) No 11/03/2021 documented as of this encounter Plan of Treatment Upcoming Encounters Date Type Department Care Team ([facility] st Contact Info) Description 09/24/2024 6:10 PM EST [address] [phone] Pharmacist1, [facility] [address] [place] [address] 11/30/2024 10:40 AM EST Office Visit Family Practice [address] [place] [phone] Carmen Ponce PA-C [address] [facility] [place] [address] Pending Results Name Type Priority Associated Diagnoses Date /Time HEMOGLOBIN A1C Lab Routine Type 2 diabetes mellitus with hemoglobin A1c goal of less than 7.0% ([facility]) 09/21/2024 8:59 AM EDT COMPREHENSIVE METABOLIC PANEL Lab Routine Physical exam, annual Hypertension goal BP (blood pressure) < 140/90 Hyperlipidemia with target LDL less than 100 09/21/2024 8:59 AM EDT LIPID PANEL WITH DIRECT LDL IF TG IS HIGH Lab Routine Physical exam, annual Hyperlipidemia with target LDL less than 100 09/21/2024 8:59 AM EDT VITAMIN B12 Lab Routine Physical exam, annual Encounter for long-term (current) use of medications B12 deficiency 09/21/2024 8:59 AM EDT MAGNESIUM Lab Routine Physical exam, annual Encounter for long-term (current) use of medications 09/21/2024 8:59 AM EDT Health Maintenance Due Date Last Done Comments [...] 02/09/2021 Influenza Vaccine (FLU shot) (#1) 2024 HbA1c 09/06/2024 03/07/2024, 0 12/2022, 04/05/2023, Additional history exists GFR 09/22/2024 09/22/2023, 0604/2023, 04/13/2023, Additional history exists Albumin/Creatinine Ratio 02/22/2025 024, 04/26/2023, 06/30/2022, Additional history exists Depression Screening 02/22/2025 02/23/2024 Diabetic Foot Exam 08/24/2025 08/24/2024, 0 08/18/2023, 07/30/2022, Additional history exists Colonoscopy 08/17/2026 08/17/2024, 07/23, 01/12/2022, Additional history exists Colorectal Cancer Screening 08/17/2026 Lipid Panel 09/22/2028 09/22/2023, 06/0 04/2023, 06/30/2022, Additional history exists DTap/Tdap Vaccines (2 - [...] this encounter Medical Devices Implanted Type Area Business Development Assistant Device Identifier Shelf Expiration Date Model / Serial / Lot Clip Quick 2.8mm 230cm - [id number] Implanted:Qty: 1 on 10/05/2019 by Obdulio White MD at ENDOSCOPY [facility] [employer] HX-202UR.A / / Clip Quick 2.8mm 230cm - [id number] Implanted:Qty: 1 on 10/05/2019 by Obdulio White MD at ENDOSCOPY [facility] [employer] HX-202UR.A / / Clip Quick 2.8mm 230cm - [id number] Implanted:Qty: 1 on 10/05/2019 by Obdulio White MD at [facility]COPY [facility] [employer] HX-202UR.A / / Clip Quick 2.8mm 230cm - [id number] Implanted:Qty: 1 on 10/05/2019 by Obdulio White MD at ENDOSCOPY [facility] [employer] HX-202UR.A / / Clip Quick 2.8mm 230cm - [id number] Implanted:Qty: 1 on 10/05/2019 by Obdulio White MD at END[facility]COPY [facility] [employer] HX-202UR.A / / Clip Quick 2.8mm 230cm - [id number] Implanted:Qty: 1 on 10/05/2019 by Obdulio White MD at END[facility]COPY [facility] [employer] HX-202UR.A / / Clip Quick 2.8mm 230cm - [id number] Implanted:Qty: 1 on 10/05/2019 by Obdulio White MD at ENDOSCOPY [facility] [employer] HX-202UR.A / / Clip Quick 2.8mm 230cm - [id number] Implanted:Qty: 1 on 10/05/2019 by Obdulio White MD at END[facility]COPY [facility] [employer] HX-202UR.A / / Clip Quick 2.8mm 230cm - [id number] Implanted:Qty: 1 on 10/05/2019 by Obdulio White MD at [facility]COPY [facility] [employer] HX-202UR.A / / Clip Quick 2.8mm 230cm - [id number] Implanted:Qty: 1 on 10/05/2019 by Obdulio White MD at [facility]COPY [facility] [employer] HX-202UR.A / / Clip Quick 2.8mm 230cm - [id number] Implanted:Qty: 1 on 10/05/2019 by Obdulio White MD at ENDOSCOPY [facility] [employer] HX-202UR.A / / Clip Quick 2.8mm 230cm - [id number] Implanted:Qty: 1 on 10/05/2019 by Obdulio White MD at ENDOSCOPY [facility] [employer] HX-202UR.A / / Clip Quick 2.8mm 230cm - [id number] Implanted:Qty: 1 on 10/05/2019 by Obdulio White MD at ENDOSCOPY [facility] [employer] HX-202UR.A / / Clip Quick 2.8mm 230cm - [id number] Implanted:Qty: 1 on 10/05/2019 by Obdulio White MD at ENDOSCOPY [facility] [employer] HX-202UR.A / / documented as of this encounter Visit Diagnoses Diagnosis Type 2 diabetes mellitus with hemoglobin A1c goal of less than 7.0% ([facility]) Physical exam, annual Routine general medical examination at a [facility] care facility Hypertension goal BP (blood pressure) < 140/90 Unspecified essential hypertension Hyperlipidemia with target LDL less than 100 Other and unspecified hyperlipidemia Encounter for long-term (current) use of medications Encounter for long-term (current) use of other medications B12 deficiency Other B-complex deficiencies documented in this encounter Advance Directives * [...] Power of Attor chepe? No Care Teams Risk And Insurance Manager Relationship Specialty Start Date End Date Carmen Ponce PA-C [address] [place], [place] [address] [phone] PCP - General Physician Forensic Nurse 10/13/21 documented as of this encounter
--- OUTSIDE RECORDS SUMMARY | 2025-01-22 05:52 | External Medical Summary | Summary of Care ---
Author Name Unknown Organization [facility] Address [address] [place] [address] Phone [phone] Care Team Providers Care Staffing Manager Name Role Phone Carmen Ponce PA-C Primary Care Provider + Reason for Visit * Reason Onset Date Comments Order Request 08/22/2024 Encounter Details Date Type Department Care Team ([facility] st Contact Info) Description 08/22/2024 Telephone Family [facility] [address] [place] [phone] Carmen Ponce PA-C [address] [place] [address] Order Request Allergies Active Allergy Reactions Criticality Noted Date Comments Penicillins Edema face/lips/tongue,Hives High 2000 documented as of this encounter (statuses as of 08/27/2024) Medications Medication Sig Dispensed Refills Start Date End Date Status Vitamin B-12 1000 MCG Oral Tablet Take by mouth 1 Tablet in the morning. 100 Tablet 3 07/07/2022 Active Additional Information Patient not taking.Reported on 08/24/2024 Rosuvastatin Calcium 10 MG Oral Tablet (Crestor)Indicatio ns:Hyperlipidemia with target LDL less than 100 Take 1 Tablet by mouth every evening. 90 Tablet 3 03/07/2023 Active Dexcom G7 Bias Cutting Machine Operator Vertical DeviceIndications: Type 2 diabetes mellitus with hemoglobin A1c goal of less than 7.0% ([facility]) Use to test blood sugars daily DXE 11.9 1 Each 04/25/2023 Active Furosemide 20 MG Oral Tablet (Lasix)Indications :Bilateral leg edema Take 1 Tablet by mouth [...] Active metFORMIN HCl 1000 MG Oral Tablet (Glucophage)Indica tions:Type 2 diabetes mellitus with hemoglobin A1c goal of less than 7.0% (HCC) TAKE 1 TABLET BY MOUTH 2 TIMES A DAY WITH MORNING AND EVENING MEALS 180 Tablet 1 02/09/2024 Active Potassium Chloride ER 10 MEQ Oral Capsule Extended ReleaseIndications :Bilateral leg edema,Encounter for long-term (current) use of [...] Active Lantus SoloStar 100 UNIT/ML Subcutaneous Solution Pen-injectorIndica tions:Type 2 diabetes mellitus with hemoglobin A1c goal of less than 7.0% (HCC) INJECT 50 units once daily DX E11.9 - titrating until BG is <150 (MDD 60units/day) 45 mL 3 06/10/2024 Active Additional Information Patient not taking.Reported on 08/24/2024 Dexcom G7 SensorIndications: Type 2 diabetes mellitus with hemoglobin A1c goal of less than 7.0% (HCC) Use to test blood sugars daily. Replace sensor every 10 days DX E 11.9 9 Each 3 08/27/2024 Active Dexcom G7 SensorIndications: Type 2 diabetes mellitus with hemoglobin A1c goal of less than 7.0% (HCC) Use to test blood sugars daily. Replace sensor every 10 days DX E 11.9 9 Each 3 04/25/2023 Discontinue d(Refill) documented as of this encounter (statuses as of 08/27/2024) Active Problems Problem Noted Date Diagnosed Date [...] as of this encounter (statuses as of 08/27/2024) Resolved Problems Problem Noted Date Diagnosed Date [...] as of this encounter (statuses as of 08/27/2024) Immunizations Name Administration Dates Next Due Covid-19 [...] No 10/19/2023 Does the household have a [facility] source of income? (Household - for [...] No 11/03/2021 documented as of this encounter Miscellaneous Notes * Telephone Encounter - Payal Joshi RPh - 08/27/2024 10:22 AM EDT New dexcom order uploaded to [employer]. Payal Joshi, Pharm D, BCACP Clinical Pharmacist 08/27/2024, 10:22 AM * Telephone Encounter - Andria Olson CCMA - 08/25/2024 1:49 PM EDT Please advise below. * Telephone Encounter - Soo Piedra OSA - 08/22/2024 12:24 PM EDT An order was requested for this patient. Name of Requesting Provider: Cramen Ponce Order Requested: new script for Dexcom G7 monitoring sensers Diagnosis/Reason for Request: [id number] What location AND department does the patient [facility] to have their [facility] Attn: Karly Fax Number, if applicable: [phone] If the caller is not a current patient, please advise the patient to call their current PCP to havethe order's prior to being seen in our office. The patient was informed that our providers would not order anything (medication, labs, etc.) prior to being seen. documented in this encounter Plan of Treatment Upcoming Encounters Date Type Department Care Team ([facility] st Contact Info) Description 08/27/2024 6:10 PM EDT Pharmacy Pharmacy [address] [phone] Pharmacist1, [address] [address] Type 2 diabetes mellitus with hemoglobin A1c goal of less than 7.0% (HCC)* 09/24/2024 6:10 PM EST Pharmacy Pharmacy [address] [phone] Pharmacist1, [address] [address] 11/30/2024 10:40 AM EST Office Visit Family [address] [phone] Carmen Ponce PA-C [address] [place] [address] Health Maintenance Due Date Last Done Comments Pneumococcal Vaccine: Pediatrics (0 to 5 Years) and At-Risk Patients (6 to 64 Years) (1 of 2 - PCV) 1965 Cologuard 2004 Fecal Occult Blood Test 2004 Sigmoidoscopy 2004 Zoster Vaccines (1 of 2) 2009 Diabetic Eye Exam 02/09/2024 02/08/2023, , 06/27/2020, Additional history exists COVID-19 Vaccine ( - season) 2024 02/09/2021 Influenza Vaccine (FLU shot) (#1) 2024 HbA1c 09/06/2024 03/07/2024, 110 12/2022, 04/05/2023, Additional history exists GFR 09/22/2024 09/22/2023, 06/0 04/2023, 04/13/2023, Additional history exists Albumin/Creatinine Ratio 02/22/2025 [...] this encounter Medical Devices Implanted Type Area Apprentice Photographer Device Identifier Shelf Expiration Date Model / Serial / Lot Clip Quick 2.8mm 230cm - [id number] Implanted:Qty: 1 on 10/05/2019 by Obdulio White MD at ENDOSCOPY [facility] [employer] HX-202UR.A / / Clip Quick 2.8mm 230cm - [id number] Implanted:Qty: 1 on 10/05/2019 by Obdulio White MD at ENDOSCOPY [facility] [employer] HX-202UR.A / / Clip Quick 2.8mm 230cm - [id number] Implanted:Qty: 1 on 10/05/2019 by Obdulio White MD at ENDOSCOPY [facility] [employer] HX-202UR.A / / Clip Quick 2.8mm 230cm - [id number] Implanted:Qty: 1 on 10/05/2019 by Obdulio White MD at ENDOSCOPY [facility] [employer] HX-202UR.A / / Clip Quick 2.8mm 230cm - [id number] Implanted:Qty: 1 on 10/05/2019 by Obdulio White MD at ENDOSCOPY [facility] [employer] HX-202UR.A / / Clip Quick 2.8mm 230cm - [id number] Implanted:Qty: 1 on 10/05/2019 by Obdulio White MD at ENDOSCOPY [facility] [employer] HX-202UR.A / / Clip Quick 2.8mm 230cm - [id number] Implanted:Qty: 1 on 10/05/2019 by Obdulio White MD at ENDOSCOPY [facility] [employer] HX-202UR.A / / Clip Quick 2.8mm 230cm - [id number] Implanted:Qty: 1 on 10/05/2019 by Obdulio White MD at ENDOSCOPY [facility] [employer] HX-202UR.A / / Clip Quick 2.8mm 230cm - [id number] Implanted:Qty: 1 on 10/05/2019 by Obdulio White MD at ENDOSCOPY [facility] [employer] HX-202UR.A / / Clip Quick 2.8mm 230cm - [id number] Implanted:Qty: 1 on 10/05/2019 by Obdulio White MD at ENDOSCOPY [facility] [employer] HX-202UR.A / / Clip Quick 2.8mm 230cm - [id number] Implanted:Qty: 1 on 10/05/2019 by Obdulio White MD at ENDOSCOPY [facility] [employer] HX-202UR.A / / Clip Quick 2.8mm 230cm - [id number] Implanted:Qty: 1 on 10/05/2019 by Obdulio White MD at ENDOSCOPY [facility] [employer] HX-202UR.A / / Clip Quick 2.8mm 230cm - [id number] Implanted:Qty: 1 on 10/05/2019 by Obdulio White MD at ENDOSCOPY [facility] [employer] HX-202UR.A / / Clip Quick 2.8mm 230cm - [id number] Implanted:Qty: 1 on 10/05/2019 by Obdulio White MD at ENDOSCOPY [facility] [employer] HX-202UR.A / / documented as of this encounter Visit Diagnoses Diagnosis Type 2 diabetes mellitus with hemoglobin A1c goal of less than 7.0% (HCC) Type 2 diabetes mellitus with hemoglobin A1c goal of less than 7.0% (HCC)- Primary documented in this encounter Advance Directives [...] Power of Attor chepe? No Care Teams Staffing Manager Relationship Specialty Start Date End Date Carmen Ponce PA-C [address] [place] [phone] PCP - General Physician Computer Lab Para Professional 10/13/21 documented as of this encounter
--- OUTSIDE RECORDS SUMMARY | 2025-01-22 05:52 | External Medical Summary ---
Author Name Unknown Address Unknown Organization [id number]:LABORATORY [facility] - [facility] [address] [facility] [place] [address] Laboratory Report Ordering Provider Test Date Status VARUNDAKOTA 09/21/2024 08:59:52 Final Observation Date Value Abnormality Reference (Units ) Status HbA1C 09/21/2024 08:59:52 8.3 Above high normal 4. 0-5.6 (%) Final The use of HbA1c to monitor glycemic status is based on normal hemoglobin and HbA composition. This test should not be used in patients with abnormal hemoglobin that affects the half life of the red blood cell or the in vivo glycation rates. Glucose, estimated average 09/21/2024 08:59:52 192 Above high normal <126 (mg/dL) Guillermo blancas Performing Location LABORATORY [facility] - [address] [facility] [place] [address]
--- OUTSIDE RECORDS SUMMARY | 2025-01-22 05:52 | External Medical Summary ---
Author Name Unknown Address Unknown Organization K01:[facility]ATORY [facility] - [address] [place] [address] Laboratory Report Ordering Provider Test Date Status DAKOTA BOND 09/21/2024 08:59:52 Final Observation Date Value Abnormality Reference (Units ) Status Magnesium 09/21/2024 08:59:52 1.9 1.5-2.6 (m g/dL) Final Performing Location [facility] [address] [facility] [address]
--- OUTSIDE RECORDS SUMMARY | 2025-01-22 05:52 | External Medical Summary ---
Author Name Unknown Address Unknown Organization [id number]:[facility] [place] [address] [place] [id number] Laboratory Report Ordering Provider Test Date Status DAKOTA BOND 09/21/2024 08:59:52 Final Observation Date Value Abnormality Reference (Units ) Status BUN 09/21/2024 08:59:52 19 6-20 (mg/dL) Final Creatinine 09/21/2024 08:59:52 0.7 0.6-1.2 (mg/dL) Final Glomerular filtration rate/1.73 sq M.predicted [Volume Rate/Area] in Serum, Plasma or Blood by Creatinine-based formula (CKD-EPI) 09/21/2024 08:59:52 >90 >=60 (mL/min) Final eGFR is calculated based on the CKD-EPI 2020 equation. Sodium 09/21/2024 08:59:52 140 135-146 (m mol/L) Final Potassium 09/21/2024 08:59:52 4.3 3.5-5.1 (m mol/L) Final Cl 09/21/2024 08:59:52 106 98-107 (mm ol/L) Final CO2 09/21/2024 08:59:52 23 22-32 (mmo l/L) Final Anion gap 09/21/2024 08:59:52 11 7-15 (mmol /L) Final Glucose 09/21/2024 08:59:52 126 Above high normal 70 -120 (mg/dL) Final Albumin 09/21/2024 08:59:52 4.3 3.8-5.0 (g /dL) Final AST (Aspartate aminotransferase) 09/21/2024 08:59:52 16 10-50 (U/L) Fin al Alk Phos 09/21/2024 08:59:52 122 35-130 (U/ L) Final Bilirubin, Total 09/21/2024 08:59:52 0.5 <=1 .2 (mg/dL) Final Calcium 09/21/2024 08:59:52 9.3 8.4-10.2 ( mg/dL) Final Protein 09/21/2024 08:59:52 6.4 6.0-8.3 (g /dL) Final ALT (Alanine aminotransferase) 09/21/2024 08:59:52 18 10-50 (U/L) Guillermo blancas Performing Location [facility] [place] [address] [facility] [address]
--- OUTSIDE RECORDS SUMMARY | 2025-01-22 05:52 | External Medical Summary | Summary of Care ---
Author Name Unknown Organization [facility] Address [address] [facility] [place] [address] Phone [phone] Care Team Providers Care Mash Processing Operator Name Role Phone Carmen Ponce PA-C Primary Care Provider + Encounter Details Date Type Department Care Team (Late st Contact Info) Description 08/27/2024 Orders Only PATIENT PORTAL DO NOT DELETE THIS DEPT USED BY NANCY SOARES [id number] Allergies Active Allergy Reactions Criticality Noted Date [...] 90 Tablet 3 03/07/2023 Active Dexcom G7 [place] DeviceIndications:T ype 2 diabetes mellitus with hemoglobin A1c goal of less than 7.0% ([facility]) Use to test blood sugars daily DXE 11.9 1 Each 04/25/2023 Active Dexcom G7 SensorIndications:T ype 2 diabetes mellitus with hemoglobin A1c goal of less than 7.0% ([facility]) Use to test blood sugars daily. Replace sensor every 10 days DX E 11.9 9 Each 3 04/25/2023 Active Furosemide 20 MG Oral Tablet [...] Upcoming Encounters Date Type Department Care Team ([facility] Contact Info) Description 08/27/2024 6:10 PM EDT Pharmacy Pharmacy [address] [phone] Pharmacist1, [facility] [address] [address] 11/30/2024 10:40 AM EST Office Visit Family Practice [address] [phone] Carmen Ponce PA-C [address] [place] [address] Health Maintenance Due Date Last Done Comments [...] 04/05/2023, Additional history exists GFR 09/22/2024 09/22/2023, 060 04/2023, 04/13/2023, Additional history exists Albumin/Creatinine Ratio [...] this encounter Medical Devices Implanted Type Area Sports Leadership Instructor Device Identifier Shelf Expiration Date Model / Serial / Lot Clip Quick 2.8mm 230cm - [id number] Implanted:Qty: 1 on 10/05/2019 by Obdulio White MD at [facility] [employer] HX-202UR.A / / Clip Quick 2.8mm 230cm - [id number] Implanted:Qty: 1 on 10/05/2019 by Obdulio White MD at [facility] [employer] HX-202UR.A / / Clip Quick 2.8mm 230cm - [id number] Implanted:Qty: 1 on 10/05/2019 by Obdulio White MD at [facility] [employer] HX-202UR.A / / Clip Quick 2.8mm 230cm - [id number] Implanted:Qty: 1 on 10/05/2019 by Obdulio White MD at [facility] [employer] HX-202UR.A / / Clip Quick 2.8mm 230cm - [id number] Implanted:Qty: 1 on 10/05/2019 by Obdulio White MD at [facility] [employer] HX-202UR.A / / Clip Quick 2.8mm 230cm - [id number] Implanted:Qty: 1 on 10/05/2019 by Obdulio White MD at [facility] [employer] HX-202UR.A / / Clip Quick 2.8mm 230cm - [id number] Implanted:Qty: 1 on 10/05/2019 by Obdulio White MD at [facility] [employer] HX-202UR.A / / Clip Quick 2.8mm 230cm - [id number] Implanted:Qty: 1 on 10/05/2019 by Obdulio White MD at [facility] [employer] HX-202UR.A / / Clip Quick 2.8mm 230cm - [id number] Implanted:Qty: 1 on 10/05/2019 by Obdulio White MD at [facility] [employer] HX-202UR.A / / Clip Quick 2.8mm 230cm - [id number] Implanted:Qty: 1 on 10/05/2019 by Obdulio White MD at [facility] [employer] HX-202UR.A / / Clip Quick 2.8mm 230cm - [id number] Implanted:Qty: 1 on 10/05/2019 by Obdulio White MD at [facility] [employer] HX-202UR.A / / Clip Quick 2.8mm 230cm - [id number] Implanted:Qty: 1 on 10/05/2019 by Obdulio White MD at [facility] [employer] HX-202UR.A / / Clip Quick 2.8mm 230cm - [id number] Implanted:Qty: 1 on 10/05/2019 by Obdulio White MD at [facility] [employer] HX-202UR.A / / Clip Quick 2.8mm 230cm - [id number] Implanted:Qty: 1 on 10/05/2019 by Obdulio White MD at [facility] [employer] HX-202UR.A / / documented [...] Power of Attor chepe? No Care Teams Mash Processing Operator Relationship Specialty Start Date End Date Carmen Ponce PA-C [address] [place] [address] [place] [id number] PCP - General Physician President [employer] 10/13/21 documented as of this encounter
--- OUTSIDE RECORDS SUMMARY | 2025-01-22 05:52 | External Medical Summary | Summary of Care ---
Author Name Unknown Organization [facility] Address [address] [place] [address] Phone [phone] Care Team Providers Care Environmental Programs Specialist Name Role Phone Carmen Ponce PA-C Primary Care Provider + Reason for Visit * Reason Comments Appointment Encounter Details Date Type Department Care Team ([facility] st Contact Info) Description 09/24/2024 6:10 PM [facility] Pharmacy Pharmacy [address] [phone] Pharmacist1, [facility] [address] [address] Type 2 diabetes mellitus with hemoglobin A1c goal of less than 7.0% ([facility])* Allergies Active Allergy Reactions Criticality Noted Date Comments Penicillins Edema face/lips/tongue,Hives High 2000 documented as of this encounter (statuses as of 09/24/2024) Medications Medication Sig Dispensed Refills Start Date [...] 90 Tablet 3 03/07/2023 Active Dexcom G7 Manager Database Administration DeviceIndications:T ype 2 diabetes mellitus with hemoglobin [...] as of this encounter (statuses as of 09/24/2024) Active Problems Problem Noted Date Diagnosed Date [...] as of this encounter (statuses as of 09/24/2024) Resolved Problems Problem Noted Date Diagnosed Date [...] as of this encounter (statuses as of 09/24/2024) Immunizations Name Administration Dates Next Due Covid-19 [...] No 11/03/2021 documented as of this encounter Progress Notes * Zaria Theodore CPhT - 09/24/2024 8:38 AM EST Patient Phone Numbers Unable to leave message on patients answering machine to schedule MTDM appointment for DM management due to voicemail being full. Clinic will follow up again in 4 week(s). [Attempt # 3] Thank you, Zaria Theodore Awning Craftsperson [facility] 09/24/2024,8:38 AM documented in this encounter Plan of Treatment Upcoming Encounters Date Type Department Care Team ([facility] st Contact Info) Description 10/23/2024 6:10 PM EST Pharmacy Pharmacy [address] [phone] Pharmacist1, [facility] [address] [address] 11/30/2024 10:40 AM EST Office Visit Family Practice [address] [phone] Carmen Ponce PA-C [address] [place] [phone] Health Maintenance Due Date Last Done Comments [...] Depression Screening 02/22/2025 02/23/2024 HbA1c 03/21/2025 09/21/2024, 0405/2024, 09/22/2023, Additional history exists Diabetic Foot Exam 08/24/2025 08/24/2024, 0 08/18/2023, 07/30/2022, Additional history exists GFR 09/21/2025 09/21/2024, 11/12/2022, 04/26/2023, Additional history exists Colonoscopy 08/17/2026 08/17/2024, [...] this encounter Medical Devices Implanted Type Area Travel Pt Device Identifier Shelf Expiration Date Model / Serial / Lot Clip Quick 2.8mm 230cm - [id number] Implanted:Qty: 1 on 10/05/2019 by Obdulio White MD at [facility] [employer] HX-202UR.A / / Clip Quick 2.8mm 230cm - [id number] Implanted:Qty: 1 on 10/05/2019 by Obdulio White MD at [facility] [employer] HX-202UR.A / / Clip Quick 2.8mm 230cm - [id number] Implanted:Qty: 1 on 10/05/2019 by Obdulio White MD at [facility] [employer] HX-202UR.A / / Clip Quick 2.8mm 230cm - [id number] Implanted:Qty: 1 on 10/05/2019 by Obdulio White MD at [facility] [employer] HX-202UR.A / / Clip Quick 2.8mm 230cm - [id number] Implanted:Qty: 1 on 10/05/2019 by Obdulio White MD at [facility] [employer] HX-202UR.A / / Clip Quick 2.8mm 230cm - [id number] Implanted:Qty: 1 on 10/05/2019 by Obdulio White MD at [facility] [employer] HX-202UR.A / / Clip Quick 2.8mm 230cm - [id number] Implanted:Qty: 1 on 10/05/2019 by Obdulio White MD at [facility] [employer] HX-202UR.A / / Clip Quick 2.8mm 230cm - [id number] Implanted:Qty: 1 on 10/05/2019 by Obdulio White MD at [facility] [employer] HX-202UR.A / / Clip Quick 2.8mm 230cm - [id number] Implanted:Qty: 1 on 10/05/2019 by Obdulio White MD at [facility] [employer] HX-202UR.A / / Clip Quick 2.8mm 230cm - [id number] Implanted:Qty: 1 on 10/05/2019 by Obdulio White MD at [facility] [employer] HX-202UR.A / / Clip Quick 2.8mm 230cm - [id number] Implanted:Qty: 1 on 10/05/2019 by Obdulio White MD at [facility] [employer] HX-202UR.A / / Clip Quick 2.8mm 230cm - [id number] Implanted:Qty: 1 on 10/05/2019 by Obdulio White MD at [facility] [employer] HX-202UR.A / / Clip Quick 2.8mm 230cm - [id number] Implanted:Qty: 1 on 10/05/2019 by Obdulio White MD at [facility] [employer] HX-202UR.A / / Clip Quick 2.8mm 230cm - [id number] Implanted:Qty: 1 on 10/05/2019 by Obdulio White MD at [facility] [employer] HX-202UR.A / / documented as of this encounter Visit Diagnoses Diagnosis Type 2 diabetes mellitus with hemoglobin A1c goal of less than 7.0% ([facility])- Primary documented in this encounter Advance [...] Power of Attor chepe? No Care Teams Environmental Programs Specialist Relationship Specialty Start Date End Date Carmen Ponce PA-C [address] [place] [address] [place] [phone] PCP - General Physician Plant Guide 10/13/21 documented as of this encounter
--- OUTSIDE RECORDS SUMMARY | 2025-01-22 05:52 | External Medical Summary ---
Author Name Unknown Address Unknown Organization K01:[facility] [place] [facility] [address] [id number] Laboratory Report Ordering Provider Test Date Status DAKOTA BOND 09/21/2024 08:59:52 Final Observation Date Value Abnormality Reference (Units ) Status Vitamin B12 09/21/2024 08:59:52 [phone] (pg/mL) Final Performing Location [facility] [place] [facility] [address] [place] [address]
--- OUTSIDE RECORDS SUMMARY | 2025-01-22 05:52 | External Medical Summary | Summary of Care ---
Author Name Unknown Organization [facility] Address [address] [place] [address] Phone [phone] Care Team Providers Care Energy Auditor Name Role Phone Carmen Ponce PA-C Primary Care Provider + Reason for Visit * Reason Onset Date Comments Forms Request 10/04/2024 Encounter Details Date Type Department Care Team ([facility] Contact Info) Description 10/04/[address] [phone] Carmen Ponce PA-C [address] [place] [address] Forms Request (/) Allergies Active [...] every evening. 90 Tablet 3 3 Active [place] G[employer] [place] Library Director DeviceIndication s:Type 2 diabetes mellitus with hemoglobin A1c goal of less than 7.0% ([facility]) Use to test blood sugars daily DXE [...] encounter Miscellaneous Notes * Telephone Encounter - Doris Beebe OSA - 10/05/2024 10:37 AM EST No answer, voicemail full. Unable to let patient know form is ready to be picked up * Telephone Encounter - Carmen Ponce PA-C - 10/04/2024 12:13 PM EST Wellness form complete. documented in this encounter Plan of Treatment Upcoming Encounters Date Type Department Care Team ([facility] Contact Info) Description 10/23/2024 6:10 PM EST Pharmacy Pharmacy [address] [phone] Pharmacist1, [facility] [address] [address] 11/30/2024 10:40 AM EST Office Visit Family Practice [address] [phone] Carmen Ponce PA-C [address] [place] [address] Health Maintenance Due Date Last Done Comments [...] this encounter Medical Devices Implanted Type Area Bottom Turning Lathe Tender Device Identifier Shelf Expiration Date Model / Serial / Lot Clip Quick 2.8mm 230cm - [id number] Implanted:Qty: 1 on 10/05/2019 by Obdulio White MD at [facility] [employer] HX-202UR.A / / Clip Quick 2.8mm 230cm - [id number] Implanted:Qty: 1 on 10/05/2019 by Obdulio White MD at [facility] [employer] HX-202UR.A / / Clip Quick 2.8mm 230cm - [id number] Implanted:Qty: 1 on 10/05/2019 by Obdulio White MD at [facility] [employer] HX-202UR.A / / Clip Quick 2.8mm 230cm - [id number] Implanted:Qty: 1 on 10/05/2019 by Obdulio White MD at [facility] [employer] HX-202UR.A / / Clip Quick 2.8mm 230cm - [id number] Implanted:Qty: 1 on 10/05/2019 by Obdulio White MD at [facility] [employer] HX-202UR.A / / Clip Quick 2.8mm 230cm - [id number] Implanted:Qty: 1 on 10/05/2019 by Obdulio White MD at [facility] [employer] HX-202UR.A / / Clip Quick 2.8mm 230cm - [id number] Implanted:Qty: 1 on 10/05/2019 by Obdulio White MD at [facility] [employer] HX-202UR.A / / Clip Quick 2.8mm 230cm - [id number] Implanted:Qty: 1 on 10/05/2019 by Obdulio White MD at [facility] [employer] HX-202UR.A / / Clip Quick 2.8mm 230cm - [id number] Implanted:Qty: 1 on 10/05/2019 by Obdulio White MD at [facility] [employer] HX-202UR.A / / Clip Quick 2.8mm 230cm - [id number] Implanted:Qty: 1 on 10/05/2019 by Obdulio White MD at [facility] [employer] HX-202UR.A / / Clip Quick 2.8mm 230cm - [id number] Implanted:Qty: 1 on 10/05/2019 by Obdulio White MD at [facility] [employer] HX-202UR.A / / Clip Quick 2.8mm 230cm - [id number] Implanted:Qty: 1 on 10/05/2019 by Obdulio White MD at [facility] [employer] HX-202UR.A / / Clip Quick 2.8mm 230cm - [id number] Implanted:Qty: 1 on 10/05/2019 by Obdulio White MD at [facility] [employer] HX-202UR.A / / Clip Quick 2.8mm 230cm - [id number] Implanted:Qty: 1 on 10/05/2019 by Obdulio White MD at [facility] [employer] HX-202UR.A / / documented as [...] Power of Attor chepe? No Care Teams Energy Auditor Relationship Specialty Start Date End Date Carmen Ponce PA-C [address] [place], [place] [address] [address] PCP - General Physician Security Control Center Operator 10/13/21 documented as of this encounter
--- OUTSIDE RECORDS SUMMARY | 2025-01-22 05:52 | External Medical Summary | Summary of Care ---
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 Name Role Phone Carmen Ponce PA-C Primary Care Provider + Reason for Referral * Evaluate & Treat - Unlimited Visits (Within 10 days (routine)) - Pending Review Specialty Diagnoses / Procedures Referred By Marisol cheng Referred To Contact Optometry Diagnoses Type 2 diabetes mellitus with hemoglobin A1c goal of less than 7.0% ([facility]) Carmen Ponce PA-C [address] [place] [phone] Referral ID Status Reason Start Date Expiration Date Visits Requested Visits Authorized [id number] Pending Review Specialty Services Required 08/24/[phone] Question Answer Referral Priority Within 10 days (routine) Where should this appointment be scheduled? [facility] Referring for: Optometry Conditions Optometry Conditions Diabetic Eye Exam without Retinopathy Comments DM Eye Exam. 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 Employer Encounter Details Date Type Department Care Team ([facility] Contact Info) Description 08/24/2024 8:20 AM EDT Office Visit [address] [phone] Carmen Ponce PA-C [address] [place] [address] [phone] Physical exam, annual*; Type 2 diabetes mellitus with hemoglobin A1c goal of less than 7.0% (HCC); Hypertension goal BP (blood pressure) < 140/90; Hyperlipidemia with target LDL less than 100; Encounter for long-term (current) use of medications; B12 deficiency Allergies Active Allergy Reactions Criticality Noted Date Comments Penicillins Edema face/lips/tongue,Hives High 2000 documented as of this encounter (statuses as of 08/24/2024) Medications Medication Sig Dispensed Refills Start Date [...] 90 Tablet 3 03/07/2023 Active Dexcom G7 Carding Machine Operator DeviceIndications:T ype 2 diabetes mellitus with hemoglobin [...] 7.0% ([facility]) INJECT 50 units once daily DX E11.9 - titrating until BG is <150 (MDD 60units/day) 45 mL 3 06/10/2024 Active Additional Information Patient not taking.Reported on 08/24/2024 documented as of this encounter (statuses as of 08/24/2024) Active Problems Problem Noted Date Diagnosed Date [...] as of this encounter (statuses as of 08/24/2024) Resolved Problems Problem Noted Date Diagnosed Date [...] as of this encounter (statuses as of 08/24/2024) Immunizations Name Administration Dates Next Due Covid-19 [...] on file documented as of this encounter Last Filed Vital Signs Vital Sign Reading Time Taken Comments Blood Pressure 116/78 08/24/2024 8:34 AM EDT Pulse 62 08/24/2024 8:34 AM EDT Temperature 36 C (96.8 F) 08/24/2024 8:34 AM EDT Respiratory Rate 16 08/24/2024 8:34 AM EDT Oxygen Saturation 95% 08/24/2024 8:34 AM EDT Inhaled Oxygen Concentration - - Weight 98.9 kg (218 lb) 08/24/2024 8:34 AM EDT Height 175.3 cm (5' 9") 08/24/2024 8:34 AM EDT Body Mass Index 32.19 08/24/2024 8:34 AM EDT documented in this encounter Functional Status Functional Status Response Date of Assess ment Do you have serious difficul ty walking or climbing stairs? (5 years old or older) No 11/03/2021 documented as of this encounter Patient Instructions * Patient Instructions* Jose Antonio Vázquez LPN - 08/24/2024 8:38 AM EDT Diabetes: Keeping Feet Healthy Inspect your feet every day for signs of a problem. Diabetes can damage nerves in your feet and cause neuropathy. This condition makes it hard for you to feel injuries or sore spots. Diabetes can also change blood flow, making it harder for small problems, like a blister, to heal properly. In fact, minor injuries can quickly become serious infections that send you to the hospital. Practice self-care to protect your feet and keep them healthy. Take Special Care Inspect your feet daily for problems such as redness, blisters, cracks, dry skin, or numbness. Use a mirror to see the bottoms of your feet. Or, ask for help. Manage your diabetes. Monitor and control your blood sugar. Take all your medications as prescribed. Avoid walking barefoot, even indoors. Wash your feet with warm water and mild soap. Dry well, especially between toes. Dont treat corns or calluses yourself. Talk to your doctor or [place] (a doctor who specializes in foot care) if you need assistance trimming your toenails. Use moisturizing cream or lotion if you have dry skin, but dont use it between toes. Dont use heating pads on your feet. If you have neuropathy, you could get a burn and not feel it. Stop smoking. Smoking restricts blood flow and can make it harder for wounds to heal. Have Regular Checkups Foot problems can develop quickly. So be sure to follow your healthcare teams schedule for regular checkups. During office visits, take off your shoes and socks as soon as you get in the exam room. Ask your healthcare provider to examine your feet for problems. This will make it easier to find and treat small skin irritations before they get worse. Regular checkups can also help keep track of the blood flow and feeling in your feet. If you have neuropathy, you may need to have checkups more often. Wear Proper Footwear Wearing proper footwear is very important. If areas of your feet have been damaged by too much pressure, your healthcare provider may recommend changing your footwear. In some cases, avoiding high heels or tight work boots may be all thats needed. Or, your healthcare provider may recommend special shoes or custom inserts. These help protect your feet and keep existing irritations from getting worse. If you need special footwear, ask your healthcare provider if you qualify for [employer] diabetic shoe program. Make Sure Shoes and Socks Fit Any pair of shoes--new or old--should feel comfortable as soon as you put them on. There shouldnt be any rubbing when you walk. Wear the right shoe for any activity. For instance, a running shoe is designed to keep your feet injury-free while jogging. Buy shoes at the end of the day, when your feet are larger. Make sure they provide support without feeling too loose. Make sure your socks fit, t oo. Wear soft, seamless, well-padded socks for activity. Cotton or microfiber socks are best to help to absorb sweat. To protect your feet, avoid shoes that are open-toed or open-heeled. If you have questions about what kinds of shoes and socks are best, talk to your healthcare team. Get Regular Exercise Regular exercise improves blood flow in your feet. It also increases foot strength and flexibility.Gentle exercises, like walking or riding a stationary bicycle, are best. You can also do special foot exercises. Just be sure to talk with your healthcare provider before starting any exercise program. Also mention if any exercise causes pain, redness, or other signs of foot problems. Note: If you have any kind of break in the skin of your foot or ankle, keep the area clean. Then call your doctor--especially if the area doesnt appear to be healing. [phone] [employer], [address] [place] [address], [place] [address]. All rights reserved. This information is not intended as a substitute for professional medical care. Always follow your healthcare professional's instructions. Diabetes: Keeping Feet Healthy Inspect your feet every day for signs of a problem. Diabetes can damage nerves in your feet and cause neuropathy. This condition makes it hard for you to feel injuries or sore spots. Diabetes can also change blood flow, making it harder for small problems, like a blister, to heal properly. In fact, minor injuries can quickly become serious infections that send you to the hospital. Practice self-care to protect your feet and keep them healthy. Take Special Care Inspect your feet daily for problems such as redness, blisters, cracks, dry skin, or numbness. Use a mirror to see the bottoms of your feet. Or, ask for help. Manage your diabetes. Monitor and control your blood sugar. Take all your medications as prescribed. Avoid walking barefoot, even indoors. Wash your feet with warm water and mild soap. Dry well, especially between toes. Dont treat corns or calluses yourself. Talk to your doctor or [place] (a doctor who specializes in foot care) if you need assistance trimming your toenails. Use moisturizing cream or lotion if you have dry skin, but dont use it between toes. Dont use heating pads on your feet. If you have neuropathy, you could get a burn and not feel it. Stop smoking. Smoking restricts blood flow and can make it harder for wounds to heal. Have Regular Checkups Foot problems can develop quickly. So be sure to follow your healthcare teams schedule for regular checkups. During office visits, take off your shoes and socks as soon as you get in the exam room. Ask your healthcare provider to examine your feet for problems. This will make it easier to find and treat small skin irritations before they get worse. Regular checkups can also help keep track of the blood flow and feeling in your feet. If you have neuropathy, you may need to have checkups more often. Wear Proper Footwear Wearing proper footwear is very important. If areas of your feet have been damaged by too much pressure, your healthcare provider may recommend changing your footwear. In some cases, avoiding high heels or tight work boots may be all thats needed. Or, your healthcare provider may recommend special shoes or custom inserts. These help protect your feet and keep existing irritations from getting worse. If you need special footwear, ask your healthcare provider if you qualify for [employer] diabetic shoe program. Make Sure Shoes and Socks Fit Any pair of shoes--new or old--should feel comfortable as soon as you put them on. There shouldnt be any rubbing when you walk. Wear the right shoe for any activity. For instance, a running shoe is designed to keep your feet injury-free while jogging. Buy shoes at the end of the day, when your feet are larger. Make sure they provide support without feeling too loose. Make sure your socks fit, t oo. Wear soft, seamless, well-padded socks for activity. Cotton or microfiber socks are best to help to absorb sweat. To protect your feet, avoid shoes that are open-toed or open-heeled. If you have questions about what kinds of shoes and socks are best, talk to your healthcare team. Get Regular Exercise Regular exercise improves blood flow in your feet. It also increases foot strength and flexibility.Gentle exercises, like walking or riding a stationary bicycle, are best. You can also do special foot exercises. Just be sure to talk with your healthcare provider before starting any exercise program. Also mention if any exercise causes pain, redness, or other signs of foot problems. Note: If you have any kind of break in the skin of your foot or ankle, keep the area clean. Then call your doctor--especially if the area doesnt appear to be healing. [phone] [employer], [address] [place] [address], [place] [address]. All rights reserved. This information is not intended as a substitute for professional medical care. Always follow your healthcare professional's instructions. documented in this encounter Progress Notes * Carmen Ponce PA-C - 08/24/2024 8:57 AM EDT Images from the original note were not included. History of Present Illness Jeffy Roldan is a 63 year old male that presents for Well Adult Exam (Employer ) Returns for routine check-up. Using Dexcom for BS monitoring. Sugars running in the 130's. Rarely above 200. Stopped taking Vit B12. Compliant with other meds. Spouse recently had gangrenous toe amputated d/t DM. Pt's biggest complaint is health insurance and high co-pays for meds and routine labs. No dietary mods. No routine exercise. Work keeps him busy. No fever, chills, sweats. No CP or SOB. No bowel or bladder complaints. The 10-year ASCVD risk score (Abdulaziz DK, et al., 2019) is: 15.4% Values used to calculate the score: Age: 63 years Sex: Male Is Non- : No Diabetic: Yes Tobacco smoker: No Systolic Blood Pressure: 116 mmHg Is BP treated: Yes HDL Cholesterol: 48 mg/dL Total Cholesterol: 122 mg/dL Physical Exam Vitals: 08/24/24 0834 Temp: 36 C (96.8 F) Pulse: 62 Resp: 16 SpO2: 95% BP: 116/78 BMI: 32.18 BP Readings from Last 3 Encounters: 08/24/24 116/78 08/17/24 107/65 02/23/24 122/78 Wt Readings from Last 3 Encounters: 08/24/24 98.9 kg (218 lb) 08/17/24 95.3 kg (210 lb) 02/23/24 98.6 kg (217 lb 6.4 oz) BMI Readings from Last 3 Encounters: 08/24/24 32.19 kg/m 08/17/24 31.01 kg/m 02/23/24 32.10 kg/m Physical Exam Vitals and nursing note reviewed. Constitutional: General: He is not in acute distress. Appearance: Normal appearance. HENT: Head: Normocephalic and atraumatic. Right Ear: Tympanic membrane normal. Left Ear: Tympanic membrane normal. Eyes: Comments: glasses Cardiovascular: Rate and Rhythm: Normal rate and regular rhythm. Heart sounds: Normal heart sounds. Pulmonary: Effort: Pulmonary effort is normal. No respiratory distress. Breath sounds: Normal breath sounds. Musculoskeletal: Cervical back: Normal range of motion and neck supple. Right lower leg: No edema. Left lower leg: No edema. Neurological: Mental Status: He is alert and oriented to person, place, and time. I have reviewed the following results: Hemoglobin A1C Assessment and Plan Declines vaccines. Labs needs updated. 1. Physical exam, annual - HEMOGLOBIN A1C; Future - COMPREHENSIVE METABOLIC PANEL; Future - LIPID PANEL WITH DIRECT LDL IF TG IS HIGH; Future - VITAMIN B12; Future - MAGNESIUM; Future 2. Type 2 diabetes mellitus with hemoglobin A1c goal of less than 7.0% ([facility]) - update labs, cont BS monitoring, cont same - ADULT/PEDS OPHTHALMOLOGY/OPTOMETRY REFERRAL OP - HEMOGLOBIN A1C; Future - DIABETES FOOT EXAM 3. Hypertension goal BP (blood pressure) < 140/90 - at goal, cont same - COMPREHENSIVE METABOLIC PANEL; Future 4. Hyperlipidemia with target LDL less than 100 - update labs, cont statin - COMPREHENSIVE METABOLIC PANEL; Future - LIPID PANEL WITH DIRECT LDL IF TG IS HIGH; Future 5. Encounter for long-term (current) use of medications - VITAMIN B12; Future - MAGNESIUM; Future 6. B12 deficiency - restart supplement - VITAMIN B12; Future Wrap-Up Follow Up: Return in about 3 months (around 11/24/2024) for Return with AP, Fasting Labs 2-5 Days Before Next Visit. | For: Return with AP, Fasting Labs 2-5 Days Before Next Visit | Check-out note: Optometry referral placed. Time: I spent a total of 20-29 minutes (exact time 20 mins) on the date of service in preparation, delivery, and documentation of the care provided to Jeffy Roldan excluding any time spent in the performance of separately billed services. The above was discussed and understanding was expressed. Carmen HIGH [address] [phone] * Kathie Jose Antonio FerrerJANINE - 08/24/2024 8:38 AM EDT Images from the original note were not included. The importance of having a yearly diabetic eye exam has been discussed with patient. Order and/or Referral placed along with patient instructions. Provider made aware. Jose Antonio Ferrer JANINE Vázquez Diabetic Retinopathy: Evaluating Your Eyes Diabetic retinopathy is a condition that happens when diabetes damages blood vessels in the rear ofthe eye. It can lead to vision loss. To help catch it early, have a complete dilated eye exam at least once a year. During the exam, the eye healthcare provider will review your medical history, examine your eyes, and check your vision. Women who are and have pre-existing type 1 or type 2 diabetes have an increased risk of retinopathy. Women with diabetes should have an eye exam before or in the first trimester. They should continue to be monitored every trimester and for 1 year after delivery, depending on the severity of the retinopathy. The retina is the light-sensitive part of the eye that allows you to see. High blood sugar can damage blood vessels of the retina and cause them to leak or bleed. This damage can lead to abnormal blood vessel growth. This condition is called diabetic retinopathy. You may not have symptoms early in the disease. Later, there may be floaters, blurred vision, or poor night vision. There may also be partial or complete vision loss. Early cases of diabetic retinopathy can be treated by carefully controlling blood sugar, blood pressure, and cholesterol. Surgery or laser treatments may help restore lost vision. Laser surgery can shrink abnormal blood vessels or close ones that are leaking. Medicines injected in the eye can help decrease swelling of the retina. Home care Take all medicines, including insulin or oral diabetic medicine, exactly as prescribed. Follow the diet advised by your healthcare provider. If you have high cholesterol, follow a low-fat, low-cholesterol diet. Monitor blood sugars as advised. Try to achieve your ideal weight. If you smoke, quit smoking. Tobacco use worsens the effect of diabetes on your blood vessels. If you have high blood pressure, consider buying an automatic blood pressure machine. These are available at most pharmacies. Use this to monitor your blood pressure. Report your blood pressure readings to your healthcare provider. Exercise regularly. Follow-up care Follow up with your healthcare provider, or as advised. You must have a complete eye exam at least once a year, more often if needed. Untreated diabetic retinopathy can lead to complete loss of vision. Occupational therapists can help you adapt to any vision loss you have, including learning techniques to safely administer insulin. When to seek medical advice Call your healthcare provider right away if any of these occur. Increasing blurriness or any sudden changes in your vision Sudden flashes of light inside your eye New floaters (small dots or strings that seem to be moving across your field of vision) Eye pain, redness, or discharge from your eyelid New dark spots appearing in your field of vision Halos around lights Dimness of vision Partial or complete loss of vision Women with diabetes should have a complete eye exam before becoming , or as soon as possible when they find out they are . Retinopathy sometimes worsens during . Your eye exam Your eye healthcare provider uses an eye chart and other tools to check your vision. Then he or sheexamines your eyes for signs of disease. You are given eye drops to widen (dilate) your pupils. Youmay have one or more of the following tests: Tonometry to measure fluid pressure inside the eye. Slit lamp exam to allow the healthcare provider to view the structures of your eye. Ultrasound to create an image of the eye using sound waves. Ultrasound may be used if blood is found in the clear gel that fills the eye (vitreous). Ocular coherence tomography (OCT) to create an image of the retina using light waves. This shows ifthere is fluid leaking into certain parts of the eye. It can also measure the thickness of the retina. Fluorescein angiography This test may be done to check the health of the inside lining of the eye (retina). It also checks the tiny blood vessels (capillaries) that carry blood to the retina. During the test: Photographs are taken of the retina. A dye is then injected into the bloodstream through the arm or hand. The dye travels to the capillaries in the eye. More photographs are taken of the retina. The dye causes the capillaries to stand out on the photographs. You may feel brief nausea during the procedure. For a few hours after the test, your skin, eyes, and urine may appear yellow. Talk with your healthcare provider for more information about this test. Date Last Reviewed: 04/21/201619992401-4184 [employer]. [address] [place] [address]. All rights reserved. This information is not intended as a substitute for professional medical care. Always follow your healthcare professional's instructions. Socks and Shoes Removed for Annual Diabetic Foot Screening RIGHT FOOT: No Reddened, Cracking, Or Open Areas Noted. RIGHT Dorsalis Pedis Pulse: Palpable RIGHT Posterior Tibial Pulse: Palpable RIGHT Monofilament:Patient reports feeling monofilament pressure on plantar surface of foot LEFT FOOT: No Reddened, Cracking or Open Areas Noted. LEFT Dorsalis Pedis Pulse: Palpable LEFT Posterior Tibial Pulse: Palpable LEFT Monofilament:Patient reports feeling monofilament pressure on plantar surface of foot Do you need diabetic shoes: No DM Foot Exam completed today. Provider aware. Jose Antonio Vázquez LPN Hemoglobin a1c ordered today. Provider aware. FABRICE Dyerocks and Shoes Removed for Annual Diabetic Foot Screening RIGHT FOOT: No Reddened, Cracking, Or Open Areas Noted. RIGHT Dorsalis Pedis Pulse: Palpable RIGHT Posterior Tibial Pulse: Palpable RIGHT Monofilament:Patient reports feeling monofilament pressure on plantar surface of foot LEFT FOOT: No Reddened, Cracking or Open Areas Noted. LEFT Dorsalis Pedis Pulse: Palpable LEFT Posterior Tibial Pulse: Palpable LEFT Monofilament:Patient reports feeling monofilament pressure on plantar surface of foot Do you need diabetic shoes: N/A DM Foot Exam completed today. Provider aware. Jose Antonio Vázquez LPN documented in this encounter Nursing Notes * Jose Antonio Vázquez LPN - 08/24/2024 8:34 AM EDT The patient has been properly identified by confirmation of name and date of . Chief Complaint Patient presents with Well Adult Exam Employer documented in this encounter Plan of Treatment Upcoming Encounters Date Type Department Care Team ([facility] Contact Info) Description 08/27/2024 6:10 PM EDT Pharmacy Pharmacy [address] [phone] Pharmacist1, [facility] [address] [phone] 11/30/2024 10:40 AM EST Office Visit Family Practice [address] [phone] Carmen Ponce PA-C [address] [place] [phone] Scheduled Orders Name Type Priority Associated Diagnoses Orde r Schedule HEMOGLOBIN A1C Lab Routine Physical exam, annual Type 2 diabetes mellitus with hemoglobin A1c goal of less than 7.0% (HCC) Expected: 11/24/2024 (Approximate), Expires: 09/24/2025 COMPREHENSIVE METABOLIC PANEL Lab Routine Physical exam, annual Hypertension goal BP (blood pressure) < 140/90 Hyperlipidemia with target LDL less than 100 Expected: 08/24/2024 (Approximate), Expires: 08/24/2025 LIPID PANEL WITH DIRECT LDL IF TG IS HIGH Lab Routine Physical exam, annual Hyperlipidemia with target LDL less than 100 Expected: 08/24/2024, Expires: 08/24/2025 VITAMIN B12 Lab Routine Physical exam, annual Encounter for long-term (current) use of medications B12 deficiency Expected: 08/24/2024 (Approximate), Expires: 08/24/2025 MAGNESIUM Lab Routine Physical exam, annual Encounter for long-term (current) use of medications Expected: 08/24/2024 (Approximate), Expires: 08/24/2025 Scheduled Referrals Name Type Priority Associated Diagnoses Orde r Schedule ADULT/PEDS OPHTHALMOLOGY/OPTOM [facility] REFERRAL OP Referral Within 10 days (routine) Type 2 diabetes mellitus with hemoglobin A1c goal of less than 7.0% (HCC) Ordered: 08/24/2024 Health Maintenance Due Date Last Done Comments [...] (FLU shot) (#1) 2024 HbA1c 09/06/2024 03/07/2024, 11/0 12/2022, 04/05/2023, Additional history exists GFR 09/22/2024 [...] this encounter Medical Devices Implanted Type Area Bulk Station Operator Device Identifier Shelf Expiration Date Model / Serial / Lot Clip Quick 2.8mm 230cm - [id number] Implanted:Qty: 1 on 10/05/2019 by Obdulio White MD at [facility] [employer] HX-202UR.A / / Clip Quick 2.8mm 230cm - [id number] Implanted:Qty: 1 on 10/05/2019 by Obdulio White MD at [facility] [employer] HX-202UR.A / / Clip Quick 2.8mm 230cm - [id number] Implanted:Qty: 1 on 10/05/2019 by Obdulio White MD at [facility] [employer] [id number]-202UR.A / / Clip Quick 2.8mm 230cm - [id number] Implanted:Qty: 1 on 10/05/2019 by Obdulio White MD at [facility] [employer] [id number]-202UR.A / / Clip Quick 2.8mm 230cm - [id number] Implanted:Qty: 1 on 10/05/2019 by Obdulio White MD at [facility] [employer] HX-202UR.A / / Clip Quick 2.8mm 230cm - [id number] Implanted:Qty: 1 on 10/05/2019 by Obdulio White MD at ENDOSCOPY [facility] [employer] HX-202UR.A / / Clip Quick 2.8mm 230cm - [id number] Implanted:Qty: 1 on 10/05/2019 by Obdulio White MD at [facility]COPY [facility] [employer] HX-202UR.A / / Clip Quick 2.8mm 230cm - [id number] Implanted:Qty: 1 on 10/05/2019 by Obdulio White MD at [facility]COPY [facility] [employer] HX-202UR.A / / Clip Quick 2.8mm 230cm - [id number] Implanted:Qty: 1 on 10/05/2019 by Obdulio White MD at [facility]OSCOPY [facility] [employer] HX-202UR.A / / Clip Quick 2.8mm 230cm - [id number] Implanted:Qty: 1 on 10/05/2019 by Obdulio White MD at ENDOSCOPY [facility] [employer] HX-202UR.A / / Clip Quick 2.8mm 230cm - [id number] Implanted:Qty: 1 on 10/05/2019 by Obdulio White MD at [facility]OSCOPY [facility] [employer] HX-202UR.A / / Clip Quick 2.8mm 230cm - [id number] Implanted:Qty: 1 on 10/05/2019 by Obdulio White MD at ENDOSCOPY [facility] [employer] HX-202UR.A / / Clip Quick 2.8mm 230cm - [id number] Implanted:Qty: 1 on 10/05/2019 by Obdulio White MD at ENDOSCOPY [facility] [employer] HX-202UR.A / / Clip Quick 2.8mm 230cm - [id number] Implanted:Qty: 1 on 10/05/2019 by Obdulio White MD at ENDOSCOPY [facility] [employer] HX-202UR.A / / documented as of this encounter Visit Diagnoses Diagnosis Physical exam, annual- Primary Routine general medical examination at a health care facility Type 2 diabetes mellitus with hemoglobin A1c goal of less than 7.0% ([facility]) Hypertension goal BP (blood pressure) < 140/90 [...] Power of Attor chepe? No Care Teams Final Cigar And Box Examiner Relationship Specialty Start Date End Date Carmen Ponce PA-C [address] [place] [address] [place] [id number] PCP - General Physician English Adjunct Faculty 10/13/21 documented as of this encounter
--- OUTSIDE RECORDS SUMMARY | 2025-01-22 05:52 | External Medical Summary | Summary of Care ---
Author Name Unknown Organization [facility] Address [address] [place] [address] Phone [phone] Care Team Providers Care Cvicu Rn Name Role Phone Carmen Ponce PA-C Primary Care Provider + Reason for Visit * Reason Comments Appointment Encounter Details Date Type Department Care Team ([facility] st Contact Info) Description 08/27/2024 6:10 PM EDT Pharmacy Pharmacy [address] [phone] Pharmacist1, [facility] [address] [address] Type 2 diabetes mellitus with hemoglobin A1c goal of less than 7.0% ([facility])* Allergies Active Allergy Reactions Criticality Noted Date [...] 90 Tablet 3 03/07/2023 Active Dexcom G7 Mixer Diamond Powder DeviceIndications:T ype 2 diabetes mellitus with hemoglobin [...] hemoglobin A1c goal of less than 7.0% ([facility]) TAKE 1 TABLET BY MOUTH 2 TIMES [...] hemoglobin A1c goal of less than 7.0% ([facility]) INJECT 50 units once daily DX E11.9 [...] as of this encounter Progress Notes * Светлана Maria PHARM Tech - 08/27/2024 8:53 AM EDT Patient Phone Numbers Left message on patients answering machine to schedule MTDM appointment for DM management. [facility] message sent --no Clinic will follow up again in 4 week(s). [Attempt # 2] Thank you, Светлана Maria [employer] Mechanic [facility] 08/27/2024, 8:55 AM documented in this encounter Plan of Treatment Upcoming Encounters Date Type Department Care Team ([facility] Contact Info) Description 09/24/2024 6:10 PM EST Pharmacy Pharmacy [address] [phone] Pharmacist1, [facility] [address] [address] 11/30/2024 10:40 AM EST Office Visit Family Practice [address] [phone] Carmen Ponce PA-C [address] [place] [phone] Health Maintenance Due Date Last Done Comments [...] this encounter Medical Devices Implanted Type Area Forest Pathologist Device Identifier Shelf Expiration Date Model / Serial / Lot Clip Quick 2.8mm 230cm - [id number] Implanted:Qty: 1 on 10/05/2019 by Obdulio White MD at ENDOSCOPY [facility] [employer] HX-202UR.A / / Clip Quick 2.8mm 230cm - [id number] Implanted:Qty: 1 on 10/05/2019 by Obdulio White MD at ENDOSCOPY [facility] [employer] HX-202UR.A / / Clip Quick 2.8mm 230cm - [id number] Implanted:Qty: 1 on 10/05/2019 by Obdulio White MD at ENDOSCOPY [facility] [employer] HX-202UR.A / / Clip Quick 2.8mm 230cm - [id number] Implanted:Qty: 1 on 10/05/2019 by Obdulio White MD at ENDOSCOPY [facility] [employer] HX-202UR.A / / Clip Quick 2.8mm 230cm - [id number] Implanted:Qty: 1 on 10/05/2019 by Obdulio White MD at ENDOSCOPY [facility] [employer] HX-202UR.A / / Clip Quick 2.8mm 230cm - [id number] Implanted:Qty: 1 on 10/05/2019 by Obdulio White MD at ENDOSCOPY [facility] [employer] HX-202UR.A / / Clip Quick 2.8mm 230cm - [id number] Implanted:Qty: 1 on 10/05/2019 by Obdulio White MD at ENDOSCOPY [facility] [employer] HX-202UR.A / / Clip Quick 2.8mm 230cm - [id number] Implanted:Qty: 1 on 10/05/2019 by Obdulio White MD at ENDOSCOPY [facility] [employer] HX-202UR.A / / Clip Quick 2.8mm 230cm - [id number] Implanted:Qty: 1 on 10/05/2019 by Obdulio White MD at ENDOSCOPY [facility] [employer] HX-202UR.A / / Clip Quick 2.8mm 230cm - [id number] Implanted:Qty: 1 on 10/05/2019 by Obdulio White MD at ENDOSCOPY [facility] [employer] HX-202UR.A / / Clip Quick 2.8mm 230cm - [id number] Implanted:Qty: 1 on 10/05/2019 by Obdulio White MD at ENDOSCOPY [facility] [employer] HX-202UR.A / / Clip Quick 2.8mm 230cm - [id number] Implanted:Qty: 1 on 10/05/2019 by Obdulio White MD at ENDOSCOPY [facility] [employer] HX-202UR.A / / Clip Quick 2.8mm 230cm - [id number] Implanted:Qty: 1 on 10/05/2019 by Obdulio White MD at ENDOSCOPY [facility] [employer] HX-202UR.A / / Clip Quick 2.8mm 230cm - [id number] Implanted:Qty: 1 on 10/05/2019 by Obdulio White MD at ENDOSCOPY [facility] [employer] HX-202UR.A / / documented as of this encounter Visit Diagnoses Diagnosis Type 2 diabetes mellitus with hemoglobin A1c goal of less than 7.0% ([facility])- Primary documented in this encounter Advance Directives [...] Power of Attor chepe? No Care Teams Cvicu Rn Relationship Specialty Start Date End Date Carmen Ponce PA-C [address] [place] [address] [place] Hdez [phone] PCP - General Physician Composition Tile Layer 10/13/21 documented as of this encounter
--- OUTSIDE RECORDS SUMMARY | 2025-01-22 05:52 | External Medical Summary ---
Author Name Unknown Address Unknown Organization K01:[facility] [place] [address] [facility] [place] [address] Laboratory Report Ordering Provider Test Date Status DAKOTA BOND 09/21/2024 08:59:52 Final Observation Date Value Abnormality Reference (Units ) Status Triglyceride 09/21/2024 08:59:52 79 <=174 ( mg/dL) Final Triglyceride Reference Range s (mg/dL):
<150 Acceptable
150-174 Borderline high
175-499 High
>=500 Very high Cholesterol 09/21/2024 08:59:52 155 <200 (mg /dL) Final Total Cholesterol Reference Ranges (mg/dL):
<200 Desirable
200-239 Borderline high
>=240 High HDL 09/21/2024 08:59:52 41 >39 (mg/dL ) Final HDL Cholesterol Reference Ra nges (mg/dL):
>=60 High (Desirable)
<50 Low (Undesirable) For Females
<40 Low (Undesirable) For Males NON-HDL CHOLESTEROL 09/21/2024 08:59:52 114 <=159 (mg/dL) Final Non-HDL Cholesterol Referenc e Range (mg/dL):
<100 Target level for high risk ASCVD patient
<130 Optimal for general population
130-159 Near optimal for general population
160-189 Borderline High
190-219 High
>=220 Very High LDL, (calculated) 09/21/2024 08:59:52 98 <= 129 (mg/dL) Final LDL Cholesterol Reference Ra nges (mg/dL):
<70 Target level for high risk ASCVD patient
<100 Optimal for general population
100-129 Near optimal for general population
130-159 Borderline high
160-189 High
>=190 Very high Performing Location [facility] [place] [address] [facility] [address]
--- OUTSIDE RECORDS SUMMARY | 2025-01-22 05:53 | External Medical Summary | Summary of Care ---
Author Name Unknown Organization [facility] Address [address] [facility] [place] [address] Phone [phone] Care Team Providers Care Bioinformatics Analyst Name Role Phone Carmen Ponce PA-C Primary Care Provider + Reason for Visit * Auth/Cert Specialty Diagnoses / Procedures Referred By Marisol t Referred To Contact Diagnoses History of colon polyps History of colon polyps [Z86.010] Procedures COLONOSCOPY, DIAGNOSTIC (RECTUM) COLONOSCOPY FLEXIBLE PROXIMAL DIAGNOSTIC Obdulio White MD [address] [place] [address] [facility] [address] [place] [phone] Referral ID Status Reason Start Date Expiration Date Visits Re quested Visits Authorized [id number] Encounter Details Date Type Department Care Team (Latest Contact Info) Description 08/17/2024 10:05 AM EDT - 08/17/2024 12:08 PM EDT Hospital Encounter [facility], Endoscopy [facility] [address] [employer] [place] [phone] Obdulio White MD [address] [place] [address] Colonoscopy Discharge Disposition: Home - Self Care Allergies Active Allergy Reactions Criticality Noted Date Comments Penicillins Edema face/lips/tongue,Hives High 2000 documented as of this encounter (statuses as of 08/18/2024) Medications Medication Sig Dispensed Refills Start Date End Date Status Vitamin B-12 1000 MCG Oral Tablet Take by mouth 1 Tablet in the morning. 100 Tablet 3 07/07/2022 Active Rosuvastatin Calcium 10 MG Oral Tablet (Crestor)Indications :Hyperlipidemia with target LDL less than 100 Take 1 Tablet by mouth every evening. 90 Tablet 3 03/07/2023 Active Dexcom G7 Surveying Crew Stake Runner DeviceIndications:Ty pe 2 diabetes mellitus with hemoglobin A1c goal of less than 7.0% (HCC) Use to test blood sugars daily DXE 11.9 1 Each 04/25/2023 Active Dexcom G7 SensorIndications:Ty pe 2 diabetes mellitus with hemoglobin A1c goal of less than 7.0% (HCC) Use to test blood sugars daily. Replace sensor every 10 days DX E 11.9 9 Each 04/25/2023 Active Furosemide 20 MG Oral Tablet (Lasix)Indications:B ilateral leg edema Take 1 Tablet by mouth in the morning. 30 Tablet 5 08/18/2023 Active NovoLOG FlexPen 100 UNIT/ML Subcutaneous Solution Pen-injector (insulin aspart) Inject 15 units before breakfast and lunch and 16 before dinner + 1 unit for every 30 >150 mg/dL MDD: 80units/day - replacing Humalog, per insurance, call patient when ready 75 Each 12/09/2023 Active metFORMIN HCl 1000 MG Oral Tablet (Glucophage)Indicati ons:Type 2 diabetes mellitus with hemoglobin A1c goal of less than 7.0% (HCC) TAKE 1 TABLET BY MOUTH 2 TIMES A DAY WITH MORNING AND EVENING MEALS 180 Tablet 1 02/09/2024 Active Potassium Chloride ER 10 MEQ Oral Capsule Extended ReleaseIndications:B ilateral leg edema,Encounter for long-term (current) use of [...] Active Lantus SoloStar 100 UNIT/ML Subcutaneous Solution Pen-injectorIndicati ons:Type 2 diabetes mellitus with hemoglobin A1c goal of less than 7.0% (HCC) INJECT 50 units once daily DX E11.9 - titrating until BG is <150 (MDD 60units/day) 45 mL 3 06/10/2024 Active documented as of this encounter (statuses as of 08/18/2024) Active Problems Problem Noted Date Diagnosed Date Thoracic spondylosis 10/20/2023 Lumbar spondylolysis 10/20/2023 S/P lumbar fusion 10/20/2023 Bilateral low back pain with right-sided sciatic a 08/18/2023 B12 deficiency 03/07/2023 BPH with obstruction/lower urinary tract symptom s 08/09/2022 Pneumococcal vaccination declined 08/09/2022 Tetanus, diphtheria, and natalia llular pertussis (Tdap) vaccination declined 08/09/2022 COVID-19 vaccine dose declined 08/09/2022 Tremor 12/29/2021 Hypertension goal BP (blood pressure) < 140/90 1 01/04/2021 Hyperlipidemia with target LDL less than 100 Overweight (BMI 25.0-29.9) 10/13/2021 History of colon polyps 10/13/2021 Thyromegaly 10/13/2021 Type 2 diabetes mellitus wit h hemoglobin A1c goal of less than 7.0% 01/11/2020 Esophageal reflux 11/09/2002 documented as of this encounter (statuses as of 08/18/2024) Resolved Problems Problem Noted Date Diagnosed Date Resolved Date Closed fracture of first lum bar vertebra with routine healing 04/26/2023 10/20/2023 Closed nondisplaced fracture of right clavicle with routine healing 04/26/2023 10/20/2023 Compression fracture of thor acic vertebra with routine healing 04/26/2023 10/20/2023 Fusion of spine of thoracolumbar region 04/26/2023 10/20/2023 Chronic left-sided low back pain 11/24/2021 04/26/2023 [...] as of this encounter (statuses as of 08/18/2024) Immunizations Name Administration Dates Next Due Covid-19 [...] No 10/19/2023 Does the household have a [facility] source of income? (Household - for ages [...] Sign Reading Time Taken Comments Blood Pressure 107/65 08/17/2024 11:35 AM EDT Pulse 79 08/17/2024 11:35 AM EDT Temperature 36.2 C (97.2 F) 08/17/2024 11:35 AM E DT Respiratory Rate 16 08/17/2024 11:35 AM EDT Oxygen Saturation 98% 08/17/2024 11:35 AM EDT Inhaled Oxygen Concentration - - Weight 95.3 kg (210 lb) 08/17/2024 10:33 AM EDT Height 175.3 cm (5' 9") 08/17/2024 10:33 AM EDT Body Mass Index 31.01 08/17/2024 10:33 AM EDT documented in this encounter Functional Status Functional Status Response Date of Assess ment Do you have serious difficul ty walking or climbing stairs? (5 years old or older) No 11/03/2021 documented as of this encounter H&P Notes * Obdulio White MD - 08/17/2024 10:30 AM EDT Endoscopy Pre-Procedure Assessment Name: Jeffy Roldan Date: 08/17/2024 Time: 10:30 AM Procedure(s): Colonoscopy; with Indication(s) of colon polyp surveillance Endoscopy Pre-Procedure Assessment: Prior to the procedure, the patient was identified. The patient's history, medications and allergies were reviewed as per the Anesthesia Assessment. The patient is competent. The risks and benefits of the proposed procedure and the planned sedation were discussed with the patient. All questions were answered and informed consent for the procedure was obtained. Ht 1.753 m (5' 9") | Wt 95.3 kg (210 lb) | BMI 31.01 kg/m | BSA 2.15 m Review of patient's allergies indicates: Allergen Reactions Penicillins Edema face/lips/tongue and Hives Prior to Admission medications Medication Sig Last Dose Discont. Dulaglutide 1.5 MG/0.5ML Subcutaneous Solution Pen-injector (Trulicity) Inject 1.5 mg under the skin once a week. For 4 weeks, then increase to 3mg weekly DX E11.9 Unknown Lantus SoloStar 100 UNIT/ML Subcutaneous Solution Pen-injector INJECT 50 units once daily DX E11.9 - titrating until BG is <150 (MDD 60units/day) Past Week Trulicity 3 MG/0.5ML Subcutaneous Solution Pen-injector (Dulaglutide) Inject 3 mg under the skin once a week. After 4 weeks of 1.5mg weekly DX E11.9 Past Week metFORMIN HCl 1000 MG Oral Tablet (Glucophage) TAKE 1 TABLET BY MOUTH 2 TIMES A DAY WITH MORNING AND EVENING MEALS Past Week Potassium Chloride ER 10 MEQ Oral Capsule Extended Release TAKE 1 CAPSULE BY MOUTH EVERY MORNING Past Month NovoLOG FlexPen 100 UNIT/ML Subcutaneous Solution Pen-injector (insulin aspart) Inject 15 units before breakfast and lunch and 16 before dinner + 1 unit for every 30 > 150 mg/dL MDD: 80units/day -replacing Humalog, per insurance, call patient when ready 08/17/2024 Furosemide 20 MG Oral Tablet (Lasix) Take 1 Tablet by mouth in the morning. Past Month Dexcom G7 Surveying Crew Stake Runner Device Use to test blood sugars daily DXE 11.9 08/17/2024 Dexcom G7 Sensor Use to test blood sugars daily. Replace sensor every 10 days DX E 11.9 08/17/2024 Rosuvastatin Calcium 10 MG Oral Tablet (Crestor) Take 1 Tablet by mouth every evening. Past Month Vitamin B-12 1000 MCG Oral Tablet Take by mouth 1 Tablet in the morning. Past Month Physical Exam: Mental Status Examination: alert and oriented. Airway Examination: normal oropharyngeal airway and neck mobility. Respiratory Examination: clear to auscultation. CV Examination: Regular rate and rythm, no murmurs. ASA Grade: II - A patient with mild systemic disease. After reviewing the risks and benefits, the patient was deemed in satisfactory condition to undergothe procedure. The anesthesia plan was to use sedation. Patient was explained in detail regarding risks, benefits, limitations and alternatives of the above endoscopic procedure. Risks of intravenous sedation used for procedure were also explained. Risks include, but not limited to perforation, bleeding, infection, respiratory distress, cardiac arrest and . Risk of acute pancreatitis and necrosis if ERCP is done. Patient is also aware about the possibility of missed lesion. Patient's questions were answered. The patient verbalized understandingthe information and agreed to undergo the procedure. Discussed with the patient that he/she is at an explicit higher risk for complications in comparison to other patients Obdulio White MD 08/17/2024 documented in this encounter Procedure Notes * Carmen Ponce PA-C - 08/17/2024 10:56 AM EDTAssociated Order(s): COLONOSCOPY [facility] Patient Name: Jeffy Roldan Procedure Date: 08/17/2024 10:56 AM Date of : 1960 Admit Type: Outpatient Note Status: Finalized Date of : 1960 Admit Type: Outpatient Age: 63 Room: Advanced Endo Gender: Male Note Status: Finalized Procedure: Colonoscopy Indications: High risk colon cancer surveillance: Personal history of multiple (3 or more) adenomas Providers: Obdulio White MD (Doctor), Easton Bosotn RN Referring MD: Carmen Ponce (Referring MD) Medicines: Propofol per Anesthesia Complications: No immediate complications. Procedure: Pre-Anesthesia Assessment: - Prior to the procedure, a History and Physical was performed, and patient medications, allergies and sensitivities were reviewed. The patient's tolerance of previous anesthesia was reviewed. - The risks and benefits of the procedure and the sedation options and risks were discussed with the patient. All questions were answered and informed consent was obtained. - Patient identification and proposed procedure were verified prior to the procedure by the physician and the nurse. The procedure was verified in the procedure room. - Pre-procedure physical examination revealed no contraindications to sedation. After I obtained informed consent, the scope was passed under direct vision. All instruments were visually inspected immediately before and after removal from the patient to ensure they are fully intact. Throughout the procedure, the patient's blood pressure, pulse, and oxygen saturations were monitored continuously. The colonoscopy was performed without difficulty. The patient tolerated the procedure well. The quality of the bowel preparation was good. The [id number] Colonoscope ([id number]) was introduced through the anus and advanced to the terminal ileum. Findings & Specimens: The perianal and digital rectal examinations were normal. The terminal ileum appeared normal. A tattoo was seen at the hepatic flexure and in the ascending colon. A post- polypectomy scar was found at the tattoo site. There was no evidence of residual polyp tissue. Multiple small-mouthed diverticula were found in the sigmoid colon. Non-bleeding internal hemorrhoids were found during retroflexion. The hemorrhoids were small. Impression: - The examined portion of the ileum was normal. - A tattoo was seen at the hepatic flexure and in the ascending colon. A post-polypectomy scar was found at the tattoo site. There was no evidence of residual polyp tissue. - Diverticulosis in the sigmoid colon. - Non-bleeding internal hemorrhoids. - No specimens collected. Recommendation: - Discharge patient to home. - Repeat colonoscopy in 5 years for surveillance. - Return to referring physician. Obdulio White MD 08/17/2024 11:21:12 AM This report has been signed electronically. documented in this encounter Nursing Notes * Jessie Doherty RN - 08/17/2024 12:07 PM EDT Patient is alert, pain free, passing flatus and tolerating po fluids prior to discharge. Patient has been visited by Dr. White. Patient has received and demonstrates understanding of discharge instructions. Patient is ambulated to private auto accompanied by endo staff. * Jessie Doherty RN - 08/17/2024 11:55 AM EDT Awaiting ride home. * Jessie Doherty RN - 08/17/2024 11:20 AM EDT Patient transferred to post endo s/p colonoscopy. Patient awake Respirations are even and unlabored on room air. NSR in the 70s on the monitor. Abdomen soft and non distended. Vital signs stable. * Easton Boston RN - 08/17/2024 11:19 AM EDT See anesthesia record for medication administered during procedure. Easton Boston RN Pre cleaning of scope at the bedside started by rehab nursing tech. No abdominal pressure given * Nathalie Vigil RN - 08/17/2024 10:41 AM EDT Patient prepped and ready for procedure. Call rod in reach. * Nathalie Vigil RN - 08/17/2024 10:19 AM EDT The following pt discharge instructions reviewed with pt prior to prodedure: No driving today. No alcohol today. No signing of legal documents. Rest as much as possible today and can return to normal activities tomorrow. No operating any heavy equipment today. Diet as tolerated. Pt verbalized understanding. documented in this encounter Plan of Treatment Upcoming Encounters Date Type Department Care Team ([facility] Contact Info) Description 08/24/2024 8:20 AM EDT Office Visit Family [address] [phone] Carmen Ponce PA-C [address] [place] [id number] 08/27/2024 6:10 PM EDT Pharmacy Pharmacy [address] [phone] Pharmacist1, [facility] [address] [address] Health Maintenance Due Date Last Done Comments Pneumococcal Vaccine: Pediatrics (0 to 5 Years) and At-Risk Patients (6 to 64 Years) (1 of 2 - PCV) 1965 Cologuard 2004 Fecal Occult Blood Test 2004 Sigmoidoscopy 2004 Zoster Vaccines (1 of 2) 2009 Diabetic Eye Exam 02/09/2024 02/08/2023, , 06/27/2020, Additional history exists B-12 04/26/2024 04/26/2023, 06/21, 03/29/2019 COVID-19 Vaccine (2 - season) 2024 02/09/2021 Influenza Vaccine (FLU shot) (#1) 2024 Diabetic Foot Exam 08/18/2024 08/18/2023, 0 07/30/2022, 10/13/2021, Additional history exists HbA1c 09/06/2024 03/07/2024, 110 12/2022, 04/05/2023, Additional history exists GFR 09/22/2024 09/22/2023, 06/0 04/2023, 04/13/2023, Additional history exists Albumin/Creatinine Ratio 02/22/2025 024, 04/26/2023, 06/30/2022, Additional history exists Depression Screening 02/22/2025 02/23/2024 Colonoscopy 08/17/2026 08/17/2024, 12/23, 01/12/2022, Additional history exists Colorectal Cancer Screening 08/17/2026 Lipid Panel 09/22/2028 09/22/2023, 06/0 04/2023, 06/30/2022, Additional history exists DTap/Tdap Vaccines (2 - Td or Tdap) 04/01/2033 04/01/2023 Hepatitis B Vaccine Completed 05/21/2003, 12/22/2002, 11/21/2002 RETIRED - COLONOSCOPY-EVERY 2 YRS AGES 18-100 Discontinued 08/17/2024, 01/12/2022, 01/12/2022, Additional history exists HPV (Gardasil) Vaccine Aged Out No lo nger eligible based on patient's age to complete this topic MENINGOCOCCAL (MENACTRA/MENVEO) Aged Out No longer eligible based on patient's age to complete this topic documented as of this encounter Medical Devices Implanted Type Area Water Pollution Control Technician Device Identifier Shelf Expiration Date Model / Serial / Lot Clip Quick 2.8mm 230cm - [id number] Implanted:Qty: 1 on 10/05/2019 by Obdulio White MD at ENDOSCOPY [facility] [employer] [facility] HX-202UR.A / / Clip Quick 2.8mm 230cm - [id number] Implanted:Qty: 1 on 10/05/2019 by Obdulio White MD at ENDOSCOPY [facility] [employer] HX-202UR.A / / Clip Quick 2.8mm 230cm - [id number] Implanted:Qty: 1 on 10/05/2019 by bOdulio White MD at [facility] [employer] HX-202UR.A / / Clip Quick 2.8mm 230cm - [id number] Implanted:Qty: 1 on 10/05/2019 by Obdulio White MD at [facility] HX-202UR.A / / Clip Quick 2.8mm 230cm - [id number] Implanted:Qty: 1 on 10/05/2019 by bOdulio White MD at [facility] HX-202UR.A / / Clip Quick 2.8mm 230cm - [id number] Implanted:Qty: 1 on 10/05/2019 by Obdulio White MD at [facility] HX-202UR.A / / Clip Quick 2.8mm 230cm - [id number] Implanted:Qty: 1 on 10/05/2019 by Obdulio White MD at [facility] HX-202UR.A / / Clip Quick 2.8mm 230cm - [id number] Implanted:Qty: 1 on 10/05/2019 by Obdulio White MD at [facility] HX-202UR.A / / Clip Quick 2.8mm 230cm - [id number] Implanted:Qty: 1 on 10/05/2019 by Obdulio White MD at [facility] [facility] HX-202UR.A / / Clip Quick 2.8mm 230cm - [id number] Implanted:Qty: 1 on 10/05/2019 by Obdulio White MD at [facility] HX-202UR.A / / Clip Quick 2.8mm 230cm - [id number] Implanted:Qty: 1 on 10/05/2019 by Obdulio White MD at [facility] HX-202UR.A / / Clip Quick 2.8mm 230cm - [id number] Implanted:Qty: 1 on 10/05/2019 by Obdulio White MD at ENDOSCOPY [facility] [employer] HX-202UR.A / / Clip Quick 2.8mm 230cm - [id number] Implanted:Qty: 1 on 10/05/2019 by Obdulio White MD at ENDOSCOPY [facility] [employer] HX-202UR.A / / Clip Quick 2.8mm 230cm - [id number] Implanted:Qty: 1 on 10/05/2019 by Obdulio White MD at ENDOSCOPY [facility] [employer] HX-202UR.A / / documented as of this encounter Procedures Procedure Name Priority Date/Time Associated Diagnosis Comments GLUCOSE METER, POINT OF CARE JARROD 08/17/2024 11:31 AM EDT COLONOSCOPY 08/17/2024 10:56 AM EDT GLUCOSE METER, POINT OF CARE JARROD 08/17/2024 10:41 AM EDT documented in this encounter Results * GLUCOSE METER, POINT OF CARE (08/17/2024 11:31 AM EDT) GLUCOSE - POCT 92 70 - 120 mg/dL 08/17/2024 11:34 AM EDT [facility] 57-00 Blood Whole blood specimen / Unknown 08/17/2024 11:31 AM EDT 08/17/2024 11:34 AM EDT Obdulio White MD LAB POINT OF CARE T EST DOCKED DEVICE UNSOLICITED RESULTS [facility]AT[facility] 57-00 [address] [facility] [place] [address] * COLONOSCOPY (08/17/2024 10:56 AM EDT) 08/17/2024 10:5 6 AM EDT Narrative Procedure Note Carmen Ponce PA-C - 08/17/2024 10:56 AM EDT [facility] Patient Name: Jeffy Roldan Procedure Date: 08/17/2024 10:56 AM Date of : 1960 Admit Type: Outpatient Note Status:Finalized Date of : 1960 Admit Type: Outpatient Age: 63 Room: Advanced [facility] Gender: Male Note Status: Finalized Procedure: Colonoscopy Indications: High risk colon cancer surveillance: Personalhistory of multiple (3 or more) adenomas Providers: Obdulio White MD (Doctor), Easton Boston RN Referring MD: Carmen Ponce (Referring MD) Medicines: Propofol per Anesthesia Complications: No immediate complications. Procedure: Pre-Anesthesia Assessment: - Prior to the procedure, a History and Physicalwas performed, and patient medications, allergies and sensitivities werereviewed. The patient's tolerance of previous anesthesia was reviewed. - The risks and benefits of the procedure and thesedation options and risks were discussed with the patient. All questions wereanswered and informed consent was obtained. - Patient identification and proposed procedurewere verified prior to the procedure by the physician and the nurse. The procedure wasverified in the procedure room. - Pre-procedure physical examination revealed nocontraindications to sedation. After I obtained informed consent, the scope waspassed under direct vision. All instruments were visually inspected immediatelybefore and after removal from the patient to ensure they are fully intact. Throughout the procedure, the patient's bloodpressure, pulse, and oxygen saturations were monitored continuously. The colonoscopy wasperformed without difficulty. The patient tolerated the procedure well. The qualityof the bowel preparation was good. The [id number] Colonoscope ([id number]) was introducedthrough the anus and advanced to the terminal ileum. Findings & Specimens: The perianal and digital rectal examinations were normal. The terminal ileum appeared normal. A tattoo was seen at the hepatic flexure and in the ascending colon.A post-polypectomy scar was found at the tattoo site. There was no evidence of residual polyp tissue. Multiple small-mouthed diverticula were found in the sigmoid colon. Non-bleeding internal hemorrhoids were found during retroflexion. Thehemorrhoids were small. Impression: - The examined portion of the ileum was normal. - A tattoo was seen at the hepatic flexure and inthe ascending colon. A post-polypectomy scar was found at the tattoo site.There was no evidence of residual polyp tissue. - Diverticulosis in the sigmoid colon. - Non-bleeding internal hemorrhoids. - No specimens collected. Recommendation: - Discharge patient to home. - Repeat colonoscopy in 5 years for surveillance. - Return to referring physician. Obdulio White MD 08/17/2024 11:21:12 AM This report has been signed electronically. Carmen Ponce PA-C GASTRO LOWER * GLUCOSE METER, POINT OF CARE (08/17/2024 10:41 AM EDT) GLUCOSE - POCT 96 70 - 120 mg/dL 08/17/2024 10:45 AM EDT [facility] 5700 Blood Whole blood specimen / Unknown 08/17/2024 10:41 AM EDT 08/17/2024 10:45 AM EDT Obdulio White MD LAB POINT OF CARE T EST DOCKED DEVICE UNSOLICITED RESULTS [facility] [address] [facility] [place] [address] documented in this encounter Administered Medications Inactive Administered Medications - up to 3 most recent administrations Medication Order MAR Action Action Date Dose Rate Site isolyte-S pH 7.4 infusion Intravenous, at 100 mL/hr, Plasma-LYTE 148, isolyte-S, and isolyte-S pH 7.4 are considered equivalent - including for MAR barcode scanning., CONTINUOUS, Starting on Tue08/17/24 at 1045, Until Tue08/17/24 at 1608, Pre-Op Restarted 08/17/2024 11:21 AM EDT Continue from Pre-Op 08/17/2024 11:00 AM EDT 10 0 mL/hr New Bag 08/17/2024 10:39 AM EDT 100 mL/hr documented in this encounter Active and Recently Administered Medications Times are shown in EDT. Continuous Medication Order 08/15/2024 08/16/2024 08/17/2024 isolyte-S pH 7.4 infusion Intravenous, at 100 mL/hr, Plasma-LYTE 148, isolyte-S, and isolyte-S pH 7.4 are considered equivalent - including for MAR barcode scanning., CONTINUOUS, Starting on Tue08/17/24 at 1045, Until Tue08/17/24 at 1608, Pre-Op 1039 (New Bag - Prov ider: Nathalie Vigil RN)1100 (Continue from Pre-Op - Provider: Jayna Barnett CRNA)1120 (Paused - Provider: Jayna Barnett CRNA - Comment: Switch to gravity)1121 (Restarted - Provider: Jayna Barnett CRNA) documented in this encounter Advance Directives * [...] Power of Attor chepe? No Care Teams Bioinformatics Analyst Relationship Specialty Start Date End Date Carmen Ponce PA-C [address] [place], [place] [address] [address] PCP - General Physician Surgical Supervisor 10/13/21 documented as of this encounter
--- OUTSIDE RECORDS SUMMARY | 2025-01-22 05:53 | External Medical Summary ---
Author Name Unknown Address Unknown Organization : Laboratory Report Ordering Provider Test Date Status CARI ANDRADE 08/17/2024 11:31:36 Final Observation Date Value Abnormality Reference (Units ) Status Glucose Point of Care 08/17/2024 11:31:36 92 70-120 (mg/dL) Final Performing Location
--- OUTSIDE RECORDS SUMMARY | 2025-01-22 05:53 | External Medical Summary | Summary of Care ---
Author Name Unknown Organization [facility] Address [address] [facility] [place] [address] Phone [phone] Care Team Providers Care Transcription Coordinator Name Role Phone Carmen Ponce PA-C Primary Care Provider + Encounter Details Date Type Department Care Team (Late st Contact Info) Description 08/14/2024 Telephone Gastroenterology, [facility] [address] [place] [address] Obdulio White MD [address] [place] [address] Allergies Active Allergy Reactions Criticality Noted Date Comments Penicillins Edema face/lips/tongue,Hives High 2000 documented as of this encounter (statuses as of 08/14/2024) Medications Medication Sig Dispensed Refills Start Date End Date Status Vitamin B-12 1000 MCG Oral Tablet Take by mouth 1 Tablet in the morning. 100 Tablet 3 07/07/2022 Active Rosuvastatin Calcium 10 MG Oral Tablet (Crestor)Indications :Hyperlipidemia with target LDL less than 100 Take 1 Tablet by mouth every evening. 90 Tablet 3 03/07/2023 Active Dexcom G7 Windows Vmware Administrator DeviceIndications:Ty pe 2 diabetes mellitus with hemoglobin A1c goal of less than 7.0% ([facility]) Use to test blood sugars daily DXE 11.9 1 Each 04/25/2023 Active Dexcom G7 SensorIndications:Ty pe 2 diabetes mellitus with hemoglobin A1c goal of less than 7.0% ([facility]) Use to test blood sugars daily. Replace [...] goal of less than 7.0% ([facility]) TAKE 1 TABLET BY MOUTH 2 TIMES [...] goal of less than 7.0% ([facility]) INJECT 50 units once daily DX E11.9 - titrating until BG is <150 (MDD 60units/day) 45 mL 3 06/10/2024 Active documented as of this encounter (statuses as of 08/14/2024) Active Problems Problem Noted Date Diagnosed Date [...] as of this encounter (statuses as of 08/14/2024) Resolved Problems Problem Noted Date Diagnosed Date [...] as of this encounter (statuses as of 08/14/2024) Immunizations Name Administration Dates Next Due Covid-19 [...] No 10/19/2023 Does the household have a [facility] source of income? (Household - for ages [...] Upcoming Encounters Date Type Department Care Team (Latest Contact Info) Description 08/17/2024 11:15 AM EDT Hospital Encounter ENDO OSSC, Endoscopy Room [facility] [address] [place] [phone] Obdulio White MD [address] [place] [address] 08/17/2024 11:15 AM EDT - 08/17/2024 11:45 AM EDT Surgery ENDO OSS[facility], Endoscopy Room [facility] [address] [place] [phone] Obdulio White MD [address] [place] [address] COLONOSCOPY FLEXIBLE PROXIMAL DIAGNOSTIC 08/24/2024 8:20 AM EDT Office Visit Family Practice [address] [phone] Carmen Ponce PA-C [address] [place] [phone] 08/27/2024 6:10 PM EDT Pharmacy Pharmacy [address] [phone] Pharmacist1, [facility] [address] [address] Scheduled Procedures Name Priority Associated Diagnoses Date/Ti me COLONOSCOPY FLEXIBLE PROXIMAL DIAGNOSTIC Recall History of colon polyps 08/17/2024 11:15 AM EDT Health Maintenance Due Date Last Done Comments Pneumococcal Vaccine: Pediatrics (0 to 5 Years) and At-Risk Patients (6 to 64 Years) (1 of 2 - PCV) 1965 Cologuard 2004 Fecal Occult Blood Test 2004 Sigmoidoscopy 2004 Zoster Vaccines (1 of 2) 2009 Colonoscopy 01/12/2024 01/12/2022, 12/23, 10/05/2019, Additional history exists Colorectal Cancer Screening 01/12/2024 Diabetic Eye Exam 02/09/2024 02/08/2023, , 06/27/2020, Additional history exists B-12 04/26/2024 04/26/2023, 08/, 03/29/2019 COVID-19 Vaccine (2 - 2023- season) 2024 02/09/2021 Influenza Vaccine (FLU shot) (#1) 2024 Diabetic Foot Exam 08/18/2024 08/18/2023, 0 07/30/2022, 10/13/2021, Additional history exists HbA1c 09/06/2024 03/07/2024, 11/0 12/2022, 04/05/2023, Additional history exists GFR 09/22/2024 09/22/2023, 06/0 04/2023, 04/13/2023, Additional history exists Albumin/Creatinine Ratio 02/22/2025 024, 04/26/2023, 06/30/2022, Additional history exists Depression Screening 02/22/2025 02/23/2024 Lipid Panel 09/22/2028 09/22/2023, 06/0 04/2023, 06/30/2022, Additional history exists DTap/Tdap Vaccines (2 - Td or Tdap) 04/01/2033 04/01/2023 Hepatitis B Vaccine Completed 05/21/2003, 12/22/2002, 11/21/2002 RETIRED - COLONOSCOPY-EVERY 2 YRS AGES 18-100 Discontinued 01/12/2022, 01/12/2022, 10/05/2019, Additional history exists HPV (Gardasil) Vaccine Aged Out No lo nger eligible based on patient's age to complete this topic MENINGOCOCCAL (MENACTRA/MENVEO) Aged Out No longer eligible based on patient's age to complete this topic documented as of this encounter Medical Devices Implanted Type Area Research Lab Assistant Device Identifier Shelf Expiration Date Model / Serial / Lot Clip Quick 2.8mm 230cm - [id number] Implanted:Qty: 1 on 10/05/2019 by Obdulio White MD at ENDOSCOPY [facility] [employer] HX-202UR.A / / Clip Quick 2.8mm 230cm - [id number] Implanted:Qty: 1 on 10/05/2019 by Obdulio White MD at ENDOSCOPY [facility] [employer] HX-202UR.A / / Clip Quick 2.8mm 230cm - [id number] Implanted:Qty: 1 on 10/05/2019 by Obdulio White MD at ENDOSCOPY [facility] [employer] HX-202UR.A / / Clip Quick 2.8mm 230cm - [id number] Implanted:Qty: 1 on 10/05/2019 by Obdulio White MD at ENDOSCOPY [facility] [employer] HX-202UR.A / / Clip Quick 2.8mm 230cm - [id number] Implanted:Qty: 1 on 10/05/2019 by Obdulio White MD at ENDOSCOPY [facility] [employer] HX-202UR.A / / Clip Quick 2.8mm 230cm - [id number] Implanted:Qty: 1 on 10/05/2019 by Obdulio White MD at ENDOSCOPY [facility] [employer] HX-202UR.A / / Clip Quick 2.8mm 230cm - [id number] Implanted:Qty: 1 on 10/05/2019 by Obdulio White MD at ENDOSCOPY [facility] [employer] HX-202UR.A / / Clip Quick 2.8mm 230cm - [id number] Implanted:Qty: 1 on 10/05/2019 by Obdulio White MD at ENDOSCOPY [facility] [employer] HX-202UR.A / / Clip Quick 2.8mm 230cm - [id number] Implanted:Qty: 1 on 10/05/2019 by Obdulio White MD at [facility] [employer] HX-202UR.A / / Clip Quick 2.8mm 230cm - [id number] Implanted:Qty: 1 on 10/05/2019 by Obdulio White MD at ENDOSCOPY [facility] [employer] HX-202UR.A / / Clip Quick 2.8mm 230cm - [id number] Implanted:Qty: 1 on 10/05/2019 by Obdulio White MD at ENDOSCOPY [facility] [employer] HX-202UR.A / / Clip Quick 2.8mm 230cm - [id number] Implanted:Qty: 1 on 10/05/2019 by Obdulio White MD at [facility] [employer] HX-202UR.A / / Clip Quick 2.8mm 230cm - [id number] Implanted:Qty: 1 on 10/05/2019 by Obdulio White MD at ENDOSCOPY [facility] [employer] HX-202UR.A / / Clip Quick 2.8mm 230cm - [id number] Implanted:Qty: 1 on 10/05/2019 by Obdulio White MD at [facility] HX-202UR.A / / documented as of [...] Power of Attor chepe? No Care Teams Transcription Coordinator Relationship Specialty Start Date End Date Carmen Ponce PA-C [address] [place] [address] [place] [address] PCP - General Physician Bull Fiddle Player 10/13/21 documented as of this encounter
--- OUTSIDE RECORDS SUMMARY | 2025-01-22 05:53 | External Medical Summary | Summary of Care ---
Author Name Unknown Organization [facility] Address [address] [facility] [place] [address] Phone [phone] Care Team Providers Care Flat Folding Machine Operator Name Role Phone Carmen Ponce PA-C Primary Care Provider + Encounter Details Date Type Department Care Team (Late st Contact Info) Description 07/27/2024 Telephone Gastroenterology, [facility] [address] [place] [address] Obdulio White MD [email or web address] [place] [address] Allergies Active Allergy Reactions Criticality Noted Date Comments Penicillins Edema face/lips/tongue,Hives High 2000 documented as of this encounter (statuses as of 07/27/2024) Medications Medication Sig Dispensed Refills Start Date End Date Status Vitamin B-12 1000 MCG Oral Tablet Take by mouth 1 Tablet in the morning. 100 Tablet 3 07/07/2022 Active Rosuvastatin Calcium 10 MG Oral Tablet (Crestor)Indications :Hyperlipidemia with target LDL less than 100 Take 1 Tablet by mouth every evening. 90 Tablet 3 03/07/2023 Active Dexcom G7 Heavy Equipment Operator DeviceIndications:Ty pe 2 diabetes mellitus with hemoglobin A1c goal of less than 7.0% ([facility]) Use to test blood sugars daily DXE 11.9 1 Each 04/25/2023 Active Dexcom G7 SensorIndications:Ty pe 2 diabetes mellitus with hemoglobin A1c goal of less than 7.0% ([facility]) Use to test blood sugars daily. Replace [...] hemoglobin A1c goal of less than 7.0% ([facility]) TAKE 1 TABLET BY MOUTH 2 TIMES [...] hemoglobin A1c goal of less than 7.0% ([facility]) INJECT 50 units once daily DX E11.9 - titrating until BG is <150 (MDD 60units/day) 45 mL 3 06/10/2024 Active documented as of this encounter (statuses as of 07/27/2024) Active Problems Problem Noted Date Diagnosed Date [...] as of this encounter (statuses as of 07/27/2024) Resolved Problems Problem Noted Date Diagnosed Date [...] as of this encounter (statuses as of 07/27/2024) Immunizations Name Administration Dates Next Due Covid-19 [...] No 10/19/2023 [facility] the household have [facility]? (Household - for [...] EDT Hospital Encounter ENDO OSSC, Endoscopy Room [facility] [address] [place] [phone] Obdulio White MD [address] [place] [address] 08/17/2024 11:15 AM EDT - 08/17/2024 11:45 AM EDT Surgery ENDO OSS[facility], Endoscopy Room [facility] [address] [place] [phone] Obdulio White MD [address] [place] [address] COLONOSCOPY FLEXIBLE PROXIMAL DIAGNOSTIC 08/24/2024 8:20 AM EDT Office Visit Family Practice [address] [phone] Carmen Ponce PA-C [address] [place] [address] 08/27/2024 6:10 PM EDT Pharmacy Pharmacy [address] [phone] Pharmacist1, [facility] [address] [address] Scheduled Procedures Name Priority Associated Diagnoses Date/Ti [...] 04/26/2023, 08/, 03/29/2019 COVID-19 Vaccine (2 - 2022- season) 2024 02/09/2021 Influenza Vaccine (FLU shot) [...] this encounter Medical Devices Implanted Type Area Architectural Practice Manager Device Identifier Shelf Expiration Date Model / Serial / Lot Clip Quick 2.8mm 230cm - [id number] Implanted:Qty: 1 on 10/05/2019 by Obdulio White MD at ENDOSCOPY [facility] [employer] HX-202UR.A / / Clip Quick 2.8mm 230cm - [id number] Implanted:Qty: 1 on 10/05/2019 by Obdulio White MD at ENDOSCOPY [facility] [employer] HX-202UR.A / / Clip Quick 2.8mm 230cm - [id number] Implanted:Qty: 1 on 10/05/2019 by Obdulio White MD at ENDOSCOPY [facility] [employer] HX-202UR.A / / Clip Quick 2.8mm 230cm - [id number] Implanted:Qty: 1 on 10/05/2019 by Obdulio White MD at ENDOSCOPY [facility] [employer] HX-202UR.A / / Clip Quick 2.8mm 230cm - [id number] Implanted:Qty: 1 on 10/05/2019 by Obdulio White MD at ENDOSCOPY [facility] [employer] HX-202UR.A / / Clip Quick 2.8mm 230cm - [id number] Implanted:Qty: 1 on 10/05/2019 by Obdulio White MD at ENDOSCOPY [facility] [employer] HX-202UR.A / / Clip Quick 2.8mm 230cm - [id number] Implanted:Qty: 1 on 10/05/2019 by Obdulio White MD at ENDOSCOPY [facility] [employer] HX-202UR.A / / Clip Quick 2.8mm 230cm - [id number] Implanted:Qty: 1 on 10/05/2019 by Obdulio White MD at ENDOSCOPY [facility] [employer] HX-202UR.A / / Clip Quick 2.8mm 230cm - [id number] Implanted:Qty: 1 on 10/05/2019 by Obdulio White MD at [facility] [employer] HX-202UR.A / / Clip Quick 2.8mm 230cm - [id number] Implanted:Qty: 1 on 10/05/2019 by Obdulio White MD at ENDOSCOPY [facility] [employer] HX-202UR.A / / Clip Quick 2.8mm 230cm - [id number] Implanted:Qty: 1 on 10/05/2019 by Obdulio White MD at ENDOSCOPY [facility] [employer] HX-202UR.A / / Clip Quick 2.8mm 230cm - [id number] Implanted:Qty: 1 on 10/05/2019 by Obdulio White MD at [facility] [employer] HX-202UR.A / / Clip Quick 2.8mm 230cm - [id number] Implanted:Qty: 1 on 10/05/2019 by Obdulio White MD at ENDOSCOPY [facility] [employer] HX-202UR.A / / Clip Quick 2.8mm 230cm - [id number] Implanted:Qty: 1 on 10/05/2019 by Obdulio White MD at [facility] HX-202UR.A / / documented as of this [...] Power of Attor chepe? No Care Teams Flat Folding Machine Operator Relationship Specialty Start Date End Date Carmen Ponce PA-C [address] [place] [address] [place] [address] PCP - General Physician Restaurant Assistant 10/13/21 documented as of this encounter
--- OUTSIDE RECORDS SUMMARY | 2025-01-22 05:53 | External Medical Summary ---
Author Name Unknown Address Unknown Organization : Laboratory Report Ordering Provider Test Date Status CARI ANDRADE 08/17/2024 10:41:07 Final Observation Date Value Abnormality Reference (Units ) Status Glucose Point of Care 08/17/2024 10:41:07 96 70-120 (mg/dL) Final Performing Location
[2025-01-22 08:05] LABS: BUN Creatinine Ratio 27.3 (10-20); Potassium 3.9 mmol/L (3.5-5.1)
[2025-01-22] MEDS: ENOXAPARIN INJ 40 MG/0.4 ML SYR SQ SCH (08:07)
[2025-01-22] MEDS: LANTUS PER UNIT CHARGE SC SCH (08:59)
--- NOTE | 2025-01-22 18:35 | Hospitalist Progress Note ---
Date of Service January 22, 2025 Assessment & Plan (1) Acute hypoxic respiratory failure: (2) Sepsis: (3) Influenza A: (4) Post-tussive syncope: (5) Diabetes mellitus type 2, insulin dependent: Plan: Patient 64-year-old gentleman who was in the emergency department tending to his when he had acute syncopal episode. Syncope most likely due to posttussive event. Subsequent patient diagnosed with Flu and noted be hypoxic and febrile. Meeting criteria for sepsis. Patient high risk for further deterioration and requires hospital level care. Admitted to the hospital and monitored unit with an episode of syncope Continue to monitor for arrhythmia Treat influenza with Tamiflu Other symptomatic care with antipyretics, antitussives and mucolytics Continue home basal insulin, monitor glucose with short acting insulin sliding scale Oxygen support, titrate as able Pt currently on RA, but still w/ significant cough, + course breath sounds on auscultation, + sputum production will obtain procalcitonin, may repeat cxr tmrw check WBC tmrw cont. to closely monitor Admission and Anticipated Discharge Date Admission Date: January 21, 2025 Subjective Pt seen in follow up Pt had syncopal episode from cough, + Flu pt's is admitted in ICU Pt currently feels better, still has a lot of cough, has some chest discomfort from coughing no abd. pain, n/v Review of Systems Review of Systems: All systems reviewed & are unremarkable except as noted in Subjective Physical Exam Physical Exam: Constitutional: Alert, moderately ill in appearance, HEENT: Mucous membranes moist. Sclera clear Neck: supple Lungs: +rhonchi, + wheezes CV: regular Abdomen: Soft, nontender, nondistended Extremities: No significant edema, moves extremities Neuro: awake, alert, speech fluent, answers appropriately, moves extremities Results & Data Results & Data Vital Signs (Past 12 Hours) Vital Signs Temp Pulse Pulse Resp BP Pulse Ox O2 Del Method 01/22/25 15:19 37.7 C H 83 18 130/64 94 Room Air 01/22/25 14:26 Room Air 01/22/25 14:24 81 01/22/25 11:20 36.9 C 82 19 120/63 93 Room Air 01/22/25 07:55 37.4 C 87 18 119/70 92 Room Air Laboratory Results 01/22/25 01/22/25 01/22/25 Range/Units 17:02 12:03 08:12 Sodium (136-145) mmol/L Potassium (3.5-5.1) mmol/L Chloride (98-107) mmol/L Carbon Dioxide (21-32) mmol/L Anion Gap (3-11) BUN (6-23) mg/dl Creatinine (0.6-1.4) mg/dl Est Cr Clr Drug Dosing ml/min eGFR BUN/Creatinine Ratio (10-20) Glucose (70-99(Fasting)) mg/dl POC Glucose 120 H 150 H 177 H (70-99) mg/dl Calcium (8.6-10.3) mg/dl 01/22/25 01/21/25 01/21/25 Range/Units 06:52 21:31 19:50 Sodium 134 L (136-145) mmol/L Potassium 3.9 (3.5-5.1) mmol/L Chloride 104 (98-107) mmol/L Carbon Dioxide 24 (21-32) mmol/L Anion Gap 6 (3-11) BUN 18 (6-23) mg/dl Creatinine 0.66 (0.6-1.4) mg/dl Est Cr Clr Drug Dosing 132.0 ml/min eGFR 104.09 BUN/Creatinine Ratio 27.3 H (10-20) Glucose 159 H (70-99(Fasting)) mg/dl POC Glucose 205 H 161 H (70-99) mg/dl Calcium 8.0 L (8.6-10.3) mg/dl Medications Administered Current Inpatient Medications Acetaminophen (Acetaminophen 325 Mg Tab) 650 mg PO Q4H PRN PRN Reason: Pain or Fever Stop: 02/20/25 18:04 Last Admin: 01/22/25 15:32 Dose: 650 mg Al Hydrox/Mg Hydrox/Simethicone (Aluminum/Magnesium Susp 30 Ml Udc) 15 ml PO Q4H PRN PRN Reason: Dyspepsia Stop: 02/20/25 18:04 Benzonatate (Benzonatate 100 Mg Capsule) 200 mg PO TID PRN PRN Reason: Cough Stop: 02/20/25 18:04 Dextrose (Dextrose 50% 50 Ml Syringe) 25 - 50 ml IV UD PRN; Protocol PRN Reason: Hypoglycemia Protocol Stop: 02/20/25 18:04 Enoxaparin Sodium (Enoxaparin Inj 40 Mg/0.4 Ml Syr) 40 mg SQ QAM NASH Stop: 02/21/25 08:59 Last Admin: 01/22/25 08:07 Dose: 40 mg Glucagon (Glucagon For Inj 1 Mg Vial) 1 mg SQ UD PRN; Protocol PRN Reason: Hypoglycemia Protocol Stop: 02/20/25 18:04 Glucose (Glucose 40% Gel 15 Gm Tube) 15 - 30 gm PO UD PRN; Protocol PRN Reason: Hypoglycemia Protocol Stop: 02/20/25 18:04 Glucose (Glucose 10 Tab/Tube) 4 - 8 tab PO UD PRN; Protocol PRN Reason: Hypoglycemia Protocol Stop: 02/20/25 18:04 Guaifenesin (Guaifenesin 600 Mg Tabcr) 600 mg PO Q12 NASH Stop: 02/20/25 20:59 Last Admin: 01/22/25 08:07 Dose: 600 mg Hydrocodone Bit/Homatropine Methylb (Hydrocodone/Homatropine Syrup 5mg/1.5mg 5ml Udp) 5 ml PO Q6H PRN PRN Reason: Cough Stop: 02/04/25 18:04 Ibuprofen (Ibuprofen 200 Mg Tab) 400 mg PO Q6H PRN PRN Reason: Fever Stop: 02/20/25 18:04 Insulin Aspart (Insulin Aspart Per Unit Charge) 0 units SC ACHS NASH Stop: 02/20/25 20:59 Last Admin: 01/22/25 18:07 Dose: 9 units Insulin Glargine (Lantus Per Unit Charge) 50 units SC DAILY NASH Stop: 02/21/25 08:59 Last Admin: 01/22/25 08:59 Dose: 50 units Miscellaneous (Carbohydrates For Hypoglycemia ) 15 - 30 gm PO UD PRN PRN Reason: Hypoglycemia Protocol Stop: 02/20/25 18:04 Ondansetron HCl (Ondansetron Inj 2 Mg/Ml 2 Ml Vial) 4 mg IV Q6H PRN PRN Reason: Nausea Stop: 02/20/25 18:04 Oseltamivir Phosphate (Oseltamivir Phosphate 75 Mg Cap) 75 mg PO BID NASH Stop: 01/26/25 20:59 Last Admin: 01/22/25 08:07 Dose: 75 mg Polyethylene Glycol (Polyethylene (Miralax) 17 Gm Pack) 17 gm PO DAILY PRN PRN Reason: Constipation Stop: 02/20/25 18:04
[2025-01-22] MEDS: BENZONATATE 100 MG CAPSULE PO PRN (21:53)
[2025-01-22] MEDS: HYDROcodone/HOMATROPINE SYRUP 5MG/1.5MG 5ML UDP PO PRN (21:54)
[2025-01-23 00:35] VITALS: RESP 18
[2025-01-23] MEDS: ONDANSETRON INJ 2 MG/ML 2 ML VIAL IV PRN (02:58)
[2025-01-23 07:30] VITALS: BP 128/69; TEMP 99.5; O2SAT 93
--- NOTE | 2025-01-23 10:07 | Discharge Summary ---
Discharge Summary Date of Service January 23, 2025 Principal Dx & Hospital Course #1 = Principal Diagnosis (1) Acute hypoxic respiratory failure: (2) Sepsis: (3) Influenza A: (4) Post-tussive syncope: (5) Diabetes mellitus type 2, insulin dependent: Plan Patient 64-year-old gentleman who was in the emergency department tending to his when he had acute syncopal episode. Diagnosed with influenza A with hypoxia. Syncopal event most likely due to posttussive syndrome. Patient was admitted to the hospital. He was given supportive care and treated with Tamiflu. He was titrated off oxygen and his overall symptoms improved. There is no significant arrhythmias on telemetry monitoring. His sepsis criteria resolved. His overall malaise and weakness improved. On the day of discharge he was on room air. He is up and ambulatory. He was not requiring any hospital level care interventions. He can be discharged home to complete a course of Tamiflu and continue treating his symptoms with antitussives and mucolytics. Follow-up with his outpatient providers. Notes For Next Care Provider Medication Changes From Visit Tamiflu to treat influenza Mucinex, Hycodan, Tessalon for cough Admission HPI Per Admitting Provider Patient is 64-year-old gentleman who was in the emergency department with his who is critically ill. Reports are that he had a significant coughing spell and then passed out for almost 30 seconds. Evaluation in the emergency room was remarkable for testing positive for influenza A. All other testing really was unrevealing. He has been having fever here in the emergency department and was noted to be somewhat hypoxic. He was referred to our service for ongoing care. Time my evaluation patient feeling a little bit better. Does admit to having some flulike symptoms for the last 24 hours. He is also started with some loose stools here in the emergency department which has been a consistent symptoms with influenza this year. He does not really admit to being short of breath despite his mild hypoxia. Does not really recall anything surrounding the events of him passing out. He was extremely concerned about his as well. Has been eating and drinking okay up until today. No swelling in hands arms legs or feet. No issues with urination. No chest pain or palpitations. Admission Exam Per Admitting Provider See H&P Discharge Exam Constitutional: Alert, nontoxic HEENT: Mucous membranes moist. Lungs: Decreased breath sounds, few rhonchi that clears with cough CV: S1-S2, regular Abdomen: Soft, nontender, nondistended Extremities: No significant edema Neuro: No focal deficits Psych: Cooperative, normal mood Updated Medication List Medication Instructions Recorded Confirmed Type dulaglutide 1.5 mg/0.5 mL 1.5 mg subcut WK 01/21/25 01/21/25 History subcutaneous pen injector (Trulicity) insulin glargine 100 unit/mL (3 50 unit subcut DAILY 01/21/25 01/21/25 History mL) subcutaneous pen (Lantus Solostar U-100 Insulin) insulin lispro 100 unit/mL 1 sliding scale dose subcut UD 01/21/25 01/21/25 History subcutaneous pen (Admelog SoloStar U-) benzonatate 100 mg capsule 200 mg (2 x 100 mg) PO TID PRN 01/23/25 Rx cough #30 caps guaifenesin 600 mg tablet, 600 mg PO Q12 #30 tabs 01/23/25 Rx extended release 12 hr (Mucinex) hydrocodone-homatropine 5 mg-1.5 5 ml PO Q6H PRN cough #473 mL 01/23/25 Rx mg/5 mL oral syrup (Hydromet) oseltamivir 75 mg capsule (Tamiflu) 75 mg PO BID #6 caps 01/23/25 Rx Hospital Stay Data Consultations 01/21/25 16:56 ED Decision to Admit Stat Diagnostic Imagining Performed 01/21/25 13:54 CT head/brain wo con Stat Reviewed imaging, laboratory and diagnostic studies. Pertinent findings as below. Glucose well-controlled while here in the hospital Pending Results Patient Have Any Pending Studies at Discharge: No Discharge Instructions Given to Patient (Per Discharging Provider) Complete course of Tamiflu Anticipate you feeling a little bit better each day, however with the flu it may take several days for you to feel as though you have completely returned to your usual self. Do not drive if taking Hycodan cough syrup Total Time Total Time Spent Total Time Spent (In Minutes): 25
[2025-01-23 10:19] LABS: Hematocrit (blood only) 37.7 % (42.0-52.0); Hemoglobin 12.7 g/dl (14.0-18.0); Mean Corpuscular Hemoglobin 28.8 pg (25.0-34.0); Mean Corpuscular Hgb Conc 33.7 g/dL (32.0-36.0); Mean Corpuscular Volume 85.5 fL (80.0-100.0); Mean Platelet Volume 10.9 fL (9.4-12.4); Platelet Count 164 K/uL (130-400); RDW Standard Deviation 40.8 fL (36.4-46.3); Red Blood Count 4.41 M/uL (4.70-6.10); White Blood Count 7.29 K/ul (4.8-10.8)
[2025-01-23 10:36] LABS: BUN Creatinine Ratio 23.4 (10-20); Calcium 8.2 mg/dl (8.6-10.3); Creatinine Clr Calc Pharmacy 135.8 ml/min; Phosphorus 2.4 mg/dl (2.5-4.9); Potassium 4.1 mmol/L (3.5-5.1)
[2025-01-23 11:04] VITALS: PULSE 102
--- NOTE | 2025-01-23 19:01 | Electrocardiogram Report ---
Test Reason : Blood Pressure : */* mmHG Vent. Rate : 81 BPM Atrial Rate : 81 BPM P-R Int : 150 ms QRS Dur : 76 ms QT Int : 356 ms P-R-T Axes : 30 72 68 degrees QTcB Int : 413 ms Sinus rhythm Normal ECG No previous ECGs available Confirmed by Kedar Blankenship ([id number]) on 01/23/2025 7:01:35 PM Referred By: REFERRED SELF Confirmed By: Kedar Blankenship
== END 2025-01-23 12:59 | disposition home or self-care (01) | DRG 871 ==
LOC: ED 10:19 → SUATTDRO 17:31 → EDINP 17:31 → 2N 18:05
DX: J96.01 Acute respiratory failure with hypoxia; A41.9 Sepsis, unspecified organism; Z79.85 Long-term (current) use of injectable non-insulin antidiabetic drugs; E11.9 Type 2 diabetes mellitus without complications; Z79.4 Long term (current) use of insulin; R05.8 Other specified cough; J10.1 Influenza due to other identified influenza virus with other respiratory manifestations